=== PATIENT | female | born 1960 | race Caucasian/White ===

== ENCOUNTER 2021-07-15 08:10 | Inpatient (IN) ==
--- NOTE | 2021-05-16 13:46 | PAT Medication Instructions ---
Medication Instructions Date of Service May 16, 2021 Home Medications albuterol sulfate 90 mcg/actuation aerosol inhaler 2 puff INHALATION QID PRN amitriptyline 10 mg tablet 10 mg PO HS aspirin 81 mg tablet 81 mg PO QAM cholecalciferol (vitamin D3) 25 mcg (1,000 unit) capsule (Vitamin D3) 25 mcg PO QAM cyanocobalamin (vitamin B-12) 2,000 mcg tablet,extended release (Vitamin B-12 ER) 6,000 mcg PO QAM gabapentin 600 mg tablet 600 mg PO TID ipratropium 0.5 mg-albuterol 3 mg (2.5 mg base)/3 mL nebulization soln 3 ml INHALATION Q4H PRN lisinopril 20 mg tablet 20 mg PO QAM loratadine 10 mg tablet 10 mg PO QAM lorazepam 0.5 mg tablet 0.5 mg PO Q8H PRN meloxicam 15 mg tablet 15 mg PO QAM multivitamin with minerals (Hair,Skin and Nails) 2 tab PO QAM pantoprazole 40 mg tablet,delayed release (Protonix) 40 mg PO QAM perphenazine 2 mg tablet 2 mg PO HS sennosides 8.6 mg-docusate sodium 50 mg tablet (Stool Softener-Laxative) 1 tab- cap PO BID sertraline 100 mg tablet 100 mg PO HS ASK your surgeon for instructions meloxicam 15 mg tablet 15 mg PO QAM STOP taking 2 weeks before surgery multivitamin with minerals (Hair,Skin and Nails) 2 tab PO QAM DO NOT take the morning of surgery cholecalciferol (vitamin D3) 25 mcg (1,000 unit) capsule (Vitamin D3) 25 mcg PO QAM cyanocobalamin (vitamin B-12) 2,000 mcg tablet,extended release (Vitamin B-12 ER) 6,000 mcg PO QAM lisinopril 20 mg tablet 20 mg PO QAM loratadine 10 mg tablet 10 mg PO QAM sennosides 8.6 mg-docusate sodium 50 mg tablet (Stool Softener-Laxative) 1 tab- cap PO BID Take morning of surgery With a small sip of water, OTHERWISE NOTHING TO EAT OR DRINK AFTER MIDNIGHT: albuterol sulfate 90 mcg/actuation aerosol inhaler 2 puff INHALATION QID PRN (use if needed; please bring with you to hospital day of surgery if possible) aspirin 81 mg tablet 81 mg PO QAM (unless surgeon directs otherwise) gabapentin 600 mg tablet 600 mg PO TID ipratropium 0.5 mg-albuterol 3 mg (2.5 mg base)/3 mL nebulization soln 3 ml INHALATION Q4H PRN (if needed) lorazepam 0.5 mg tablet 0.5 mg PO Q8H PRN (if needed) pantoprazole 40 mg tablet,delayed release (Protonix) 40 mg PO QAM Take evening before surgery albuterol sulfate 90 mcg/actuation aerosol inhaler 2 puff INHALATION QID PRN (if needed) amitriptyline 10 mg tablet 10 mg PO HS gabapentin 600 mg tablet 600 mg PO TID ipratropium 0.5 mg-albuterol 3 mg (2.5 mg base)/3 mL nebulization soln 3 ml INHALATION Q4H PRN (if needed) lorazepam 0.5 mg tablet 0.5 mg PO Q8H PRN (if needed) perphenazine 2 mg tablet 2 mg PO HS sennosides 8.6 mg-docusate sodium 50 mg tablet (Stool Softener-Laxative) 1 tab- cap PO BID sertraline 100 mg tablet 100 mg PO HS Other Notes If you have any questions please call us at [phone] or [phone] or [phone] or [phone]
--- NOTE | 2021-05-21 12:29 | Anesthesiology Consultation ---
Date of Service May 21, 2021 Assessment & Plan (1) Encounter for pre-operative examination: Chart Review Chart Review: Acceptable Risk for Surgery (pending surgeon ordered PCP clearance, ECHO if available, and preop Covid testing results ) and Patient seen in Pre Admission Testing Awaiting surgeon ordered PCP clearance scheduled 05/26. Will fax for ECHO if available in past six years. Usually does better with breathing with preop nebulizer Pt drinks up to 6 beers daily Per PAT appt on 05/21/21, patient denies any recent travel or large group activities. No known Covid positive exposures or Covid related symptoms. No known Covid infection in the past 90 days. Pt is vaccinated for Covid. Preop Covid testing scheduled 06/02/21= will await results. Educated on importance of self quarantining, social distancing and wearing mask in public for the patient one week prior to surgery and after Covid testing done Teaching & Discussion Pre-Anesthesia Teaching/Discussion Notes: Instructed NPO after midnight before surgery,except medications with 15 cc of water. Medication instructions provided according to the [facility] guidelines. History Surgery Operation Date: 06/04/21 07:45 Proposed Procedures p L4-S1 Decompression Fusion, Spinal Cord Monitoring - Tomas West, Height/Weight Height: 5 ft 1.5 in Weight: 56.9 kg Allergies Allergy/AdvReac Type Severity Reaction Status Date / Time nitrofurantoin Allergy SOB Verified 05/15/21 09:52 sumatriptan [From Imitrex] Allergy neck pain Verified 05/15/21 09:52 Medications Home Medications Medication Instructions Recorded Confirmed Last Taken albuterol sulfate 90 mcg/actuation 2 puff INHALATION QID PRN 05/15/21 05/15/21 Unknown aerosol inhaler amitriptyline 10 mg tablet 10 mg PO HS 05/15/21 05/15/21 Unknown aspirin 81 mg tablet 81 mg PO QAM 05/15/21 05/15/21 Unknown cholecalciferol (vitamin D3) 25 25 mcg PO QAM 05/15/21 05/15/21 Unknown mcg (1,000 unit) capsule (Vitamin D3) cyanocobalamin (vitamin B-12) 6,000 mcg PO QAM 05/15/21 05/15/21 Unknown 2,000 mcg tablet,extended release (Vitamin B-12 ER) gabapentin 600 mg tablet 600 mg PO TID 05/15/21 05/15/21 Unknown ipratropium 0.5 mg-albuterol 3 mg 3 ml INHALATION Q4H PRN 05/15/21 05/15/21 Unknown (2.5 mg base)/3 mL nebulization soln lisinopril 20 mg tablet 20 mg PO QAM 05/15/21 05/15/21 Unknown loratadine 10 mg tablet 10 mg PO QAM 05/15/21 05/15/21 Unknown lorazepam 0.5 mg tablet 0.5 mg PO Q8H PRN 05/15/21 05/15/21 Unknown meloxicam 15 mg tablet 15 mg PO QAM 05/15/21 05/15/21 Unknown multivitamin with minerals 2 tab PO QAM 05/15/21 05/15/21 Unknown (Hair,Skin and Nails) pantoprazole 40 mg tablet,delayed 40 mg PO QAM 05/15/21 05/15/21 Unknown release (Protonix) perphenazine 2 mg tablet 2 mg PO HS 05/15/21 05/15/21 Unknown sennosides 8.6 mg-docusate sodium 1 tab-cap PO BID 05/15/21 05/15/21 Unknown 50 mg tablet (Stool Softener-Laxative) sertraline 100 mg tablet 100 mg PO HS 05/15/21 05/15/21 Unknown Past Medical History Medical History (Updated 05/22/21 @ 08:49 by Shweta Fowler PA-C) Alcohol ingestion, more than 4 drinks/day 6 beers/day Anxiety Asthma Uses PRN inh daily COPD (chronic obstructive pulmonary disease) Breathing stable DDD (degenerative disc disease) Depression Fibromyalgia Stable GERD (gastroesophageal reflux disease) Well controlled and stable Graves' disease in remission No meds- thyroid levels WNL per patient TSH WNL at PAT appt 05/21/21 HLD (hyperlipidemia) HTN (hypertension) Ischemic stroke Approx 5 years ago; no deficits Migraines Spinal stenosis Suspected sleep apnea Witnessed by - no hx of sleep study Urinary incontinence Exercise / Class Metabolic Activity III < 4 Walking/Shop/Light housework (one flight of stairs- no chest pain, mild SOB ) Past Family History Family History Other No family history of adverse response to anesthesia Past Surgical History Surgical History History of appendectomy History of arthroscopy of right knee History of cataract surgery History of cholecystectomy History of colonoscopy History of esophagogastroduodenoscopy (EGD) History of repair of hiatal hernia History of total abdominal hysterectomy and bilateral salpingo-oophorectomy S/P correction of deviated nasal septum Past Anesthesia History No Hx of Anesthesia Complications (minimal asthma aggrevation- relieved with breathing treatments preop ) and No Family Hx of Anesthesia Complications History of PONV No Hx of PONV and No Hx of Motion Sickness Social History Smoking Status: Current every day smoker tobacco type: cigarettes Smoking cigarettes per day: 10-15 cigarrettes Do You Dip or Chew Tobacco: No Hx Alcohol Use: Yes Alcohol type: beer alcohol intake frequency: 3 or more drinks per day Alcohol Intake Frequency Comment: 6 beers per day Hx Substance Use: No substance use type: does not use Review of Systems Chronic coughing and wheezing occasionally- secondary to smoking- stable Patient denies chest pain, shortness of breath at rest, palpitations. No hx of seizures, [place]. No hx of blood clots or blood transfusions Physical Exam Vital Signs VITALS BP 104/56 (manually) P 87 TEMP 98.1 SP02 96% RESP 16 Constitutional no acute distress ENMT Mouth: no TMJ clicking Thyromental Distance: < 3.5 Finger Breadths (2.5) Mallampati Class: III Full dentures on top and bottom Neck neck extension not limited Respiratory normal respiratory effort; no respiratory distress Auscultation: lungs clear to auscultation bilaterally, + diminished lung sounds and + wheezes (Minimal throughout ) Cardiovascular Rate/Rhythm: regular rate and regular rhythm Heart Sounds: no murmur Vessels: no carotid bruit Musculoskeletal Spine: no pain with cervical ROM Extremities: extremities normal to inspection Psychiatric Orientation: alert Lab Results Anesthesia Preop Results Results Anesthesia Widget: WBC 7.05 K/uL (4.8-10.8) 05/21/21 Hgb 11.8 g/dL (12.0-16.0) L 05/21/21 Hct 35.9 % (37-47) L 05/21/21 Plt 265 K/uL (130-400) 05/21/21 Na 138 mmol/L (136-145) 05/21/21 K 4.5 mmol/L (3.5-5.1) 05/21/21 Cl 107 mmol/L (98-107) 05/21/21 CO2 25 mmol/L (21-32) 05/21/21 BUN 11 mg/dl (6-23) 05/21/21 Creat 0.97 mg/dl (0.6-1.2) 05/21/21 Glucose Level 121 mg/dl (70-99(Fasting)) H 05/21/21 PT 10.3 Seconds (9.0-12.0) 05/21/21 PTT 28.8 Seconds (21.0-31.0) 05/21/21 INR 1.0 (0.9-1.1) 05/21/21 TSH 3.094 uIu/ml (0.300-4.500) 05/21/21 Urine Color Yellow 05/21/21 Urine Appearance Clear (Clear) 05/21/21 Urine pH 5.0 (4.5-7.5) 05/21/21 Urine Specific [place] 1.009 (1.000-1.030) 05/21/21 Urine Protein Negative (Negative) 05/21/21 Urine Glucose (UA) Negative (Negative) 05/21/21 Urine Ketones Negative (Negative) 05/21/21 Urine Blood 1+ (Negative) H 05/21/21 Urine Nitrite Negative (Negative) 05/21/21 Urine Bilirubin Negative (Negative) 05/21/21 Urine Urobilinogen Negative (Negative) 05/21/21 Urine Leukocyte Esterase Negative (Negative) 05/21/21 Urine WBC (Auto) 0 /hpf (0-5) 05/21/21 Urine RBC (Auto) 0-4 /hpf (0-4) 05/21/21 Urine Hyaline Casts (Auto) 1-5 /lpf (0-5) 05/21/21 Urine Epithelial Cells (Auto) 20-30 /lpf (0-5) H 05/21/21 Urine Bacteria (Auto) Negative (Negative) 05/21/21 Blood Type A Negative 05/21/21 Antibody Screen NEGATIVE 05/21/21 Testing Electrocardiogram Date: 02/13/21 Findings: + NSR @ (76bpm) Chest X-Ray Date: 02/13/21 Findings: + NAD
[~2021-07-15 08:10] MED LIST: ACETAMINOPHEN 500 MG TAB PO SCH; CeleBREX 200 MG CAP PO SCH; GABAPENTIN 600 MG DOSE PO SCH; LR 15ML/HR IV SCH; ceFAZolin 1000MG 1,000 MG/7.5 ML SYR IV SCH
[2021-07-15] MEDS ORDERED: ePHEDrine sulfate 50 MG/ML AMP IV PRN (09:40)
[2021-07-15] MEDS ORDERED: ATROPINE SULFATE 0.1 MG/ML 10ML SYR IV PRN (09:40)
[2021-07-15] MEDS ORDERED: HYDROmorphone INJ 1 MG/ML SYRINGE IV PRN ×2 (09:40→15:59)
[2021-07-15] MEDS ORDERED: ONDANSETRON INJ 2 MG/ML 2 ML VIAL IV PRN ×2 (09:40→15:59)
[2021-07-15] MEDS ORDERED: ALBUT/IPRATROP 3MG/0.5MG NEB 3 ML VIAL INH PRN ×2 (09:51→15:59)
--- NOTE | 2021-07-15 11:19 | History & Physical Bridge Note ---
Date of Service July 15, 2021 History & Physical Bridge Note I have examined the patient, reviewed the History & Physical and in the interval since the performance of the History & Physical I have noted the following changes of clinical significance: no changes noted
--- NOTE | 2021-07-15 11:20 | History & Physical Report ---
Date of Service July 15, 2021 Assessment & Plan (1) Neurogenic claudication due to lumbar spinal stenosis: Plan: L4-S1 decompression fusion History of Present Illness Chief Complaint: Back and bilateral leg pain Primary Care Provider: Erwin Cerda This is a 52-year-old female who presents with chronic persistent back and bilateral leg pain after failing course of nonoperative care she is here for surgical invention. Allergies Allergy/AdvReac Type Severity Reaction Status Date / Time nitrofurantoin Allergy Intermediate SOB Verified 07/15/21 09:56 sumatriptan [From Imitrex] Allergy Intermediate neck pain Verified 07/15/21 09:56 Home Medications Medication Instructions Recorded Confirmed Type albuterol sulfate 90 mcg/actuation 2 puff INHALATION QID PRN 05/15/21 07/15/21 History aerosol inhaler amitriptyline 10 mg tablet 10 mg PO HS 05/15/21 07/15/21 History aspirin 81 mg tablet 81 mg PO QAM 05/15/21 07/15/21 History cholecalciferol (vitamin D3) 25 25 mcg PO QAM 05/15/21 07/15/21 History mcg (1,000 unit) capsule (Vitamin D3) cyanocobalamin (vitamin B-12) 6,000 mcg PO QAM 05/15/21 07/15/21 History 2,000 mcg tablet,extended release (Vitamin B-12 ER) gabapentin 600 mg tablet 600 mg PO TID 05/15/21 07/15/21 History ipratropium 0.5 mg-albuterol 3 mg 3 ml INHALATION Q4H PRN 05/15/21 07/15/21 History (2.5 mg base)/3 mL nebulization soln lisinopril 20 mg tablet 20 mg PO QAM 05/15/21 07/15/21 History loratadine 10 mg tablet 10 mg PO QAM 05/15/21 07/15/21 History lorazepam 0.5 mg tablet 0.5 mg PO Q8H PRN 05/15/21 07/15/21 History meloxicam 15 mg tablet 15 mg PO QAM 05/15/21 07/15/21 History multivitamin with minerals 2 tab PO QAM 05/15/21 07/15/21 History (Hair,Skin and Nails) pantoprazole 40 mg tablet,delayed 40 mg PO QAM 05/15/21 07/15/21 History release (Protonix) perphenazine 2 mg tablet 2 mg PO HS 05/15/21 07/15/21 History sennosides 8.6 mg-docusate sodium 1 tab-cap PO BID 05/15/21 07/15/21 History 50 mg tablet (Stool Softener-Laxative) sertraline 100 mg tablet 100 mg PO HS 05/15/21 07/15/21 History Past Med/Surg History Medical History (Updated 07/15/21 @ 11:20 by Tomas West, DO) Alcohol ingestion, more than 4 drinks/day 6 beers/day Anxiety Asthma Uses PRN inh daily COPD (chronic obstructive pulmonary disease) Breathing stable DDD (degenerative disc disease) Depression Fibromyalgia Stable GERD (gastroesophageal reflux disease) Well controlled and stable Graves' disease in remission No meds- thyroid levels WNL per patient TSH WNL at PAT appt 05/21/21 HLD (hyperlipidemia) HTN (hypertension) Ischemic stroke Approx 5 years ago; no deficits Migraines Spinal stenosis Suspected sleep apnea Witnessed by - no hx of sleep study Urinary incontinence Surgical History (Updated 07/07/21 @ 11:40 by Val Rizvi RN) History of appendectomy History of arthroscopy of right knee History of cataract surgery left History of cholecystectomy History of colonoscopy History of esophagogastroduodenoscopy (EGD) History of repair of hiatal hernia History of total abdominal hysterectomy and bilateral salpingo-oophorectomy S/P correction of deviated nasal septum Family History Other No family history of adverse response to anesthesia Social History Smoking Status: Former smoker Cigarettes Per Day: quit; Smoking End Date: 07/07/2021; Second Hand Exposure: No; Do You Dip or Chew Tobacco: No; Tobacco Cessation Education Requested by Patient: No Hx Alcohol Use: Yes Alcohol type: beer Hx Substance Use: No Preferred Language: Slovak Communication Ability: Effective Sanitation Worker Required: No Beliefs That Will Affect Care: None Current Living Situation: Spouse Other Information That Helps Us Care for You: No Feels Safe at Home: Yes Safety Concerns: Feels Safe At This Time Assistive Devices: Cane, Denture - Upper, Denture - Lower and Glasses Assistive Devices Comment: glasses for reading Physical Exam Physical Exam: Patient is alert and oriented Heart regular in rhythm Lungs clear Results & Data ([facility]) Vital Signs (Past 12 Hours) Vital Signs Temp Pulse Resp BP Pulse Ox 07/15/21 08:58 37 C 82 18 128/67 100
[2021-07-15] MEDS ORDERED: fentaNYL citrate 100 MCG/2 ML VIAL ONE (11:33)
[2021-07-15] MEDS ORDERED: MIDAZOLAM HCL 1 MG/ML 2ML VIAL ONE (11:33)
[2021-07-15] MEDS ORDERED: ceFAZolin 330 MG/ML 1 GM VIAL ONE (11:41)
[2021-07-15] MEDS ORDERED: BUPIVACAINE/EPINEPHRINE 0.25% 1:200,000 30 ML VIAL ONE (11:41)
[2021-07-15] MEDS ORDERED: ALBUTEROL HFA INHALER 8.5 GM ONE (11:59)
[2021-07-15] MEDS ORDERED: HYDROmorphone INJ 2 MG/ML SYR/VIAL ONE (12:12)
[2021-07-15] MEDS ORDERED: FLOSEAL HEMOSTATIC MATRIX 10ML TOP ONE (12:16)
--- NOTE | 2021-07-15 14:06 | Operative Report ---
Post Operative Report Pre & Post Diagnosis Operation Date: 07/15/21 10:05 Pre-Op Diagnosis: Other Intervertebral Disc Degeneration, Lumbar Region Post-Op Diagnosis: Other Intervertebral Disc Degeneration, Lumbar Region Operation Date: 07/15/21 12:20 <No data on this case meets the specified criteria> I identified the patient and participated in the time-out.: Yes Procedure Operation Date: 07/15/21 10:05 Actual Procedures #1 lumbar decompression with bilateral medial facetectomies and foraminotomies L3-L4, L4-L5 and L5-S1. #2 posterior spinal fusion L4-L5 L5-S1. #3 placement posterior instrumentation L4-S1. #4 interbody fusion L4-L5 L5-S1. #5 placement of titanium 7 mm cage L4-L5 and 8 mm cage at L5-S1. #6 placement locally harvested morselized autograft in the posterior gutters. #7 placement of I factor combined with the talus in the interbody space and posterior gutters. Operation Date: 07/15/21 12:20 <No data on this case meets the specified criteria> Surgeon Tomas West, DO Bilingual Teacher Aide Nay Conte Estimated Blood Loss 100 Findings Consistent with Post-Op Diagnosis Specimens None Indications This is a 52-year-old male who presents above-mentioned diagnosis and course of nonoperative care she is here for surgical invention. Description of Procedure Patient was met with identified informed consent obtained. Patient was then taken to the operative suite underwent ablation placed in a prone position the [facility] Darnell and frame. All bony prominences well-padded eyes inspected to ensure no external pressure placed upon the. This point lumbar spine was prepped and draped in a sterile fashion. Sharp dissection with the assistance of Bovie cautery was performed down to and exposing the lamina and transverse processes of L4-L5 and sacral ala. From a caudal cephalad fashion complete laminectomy of L5 L4 and partial laminectomy of L3 performed including bilateral medial facetectomies and foraminotomies addressing severe spinal stenosis. Pedicle screws then placed in L for L5 and S1 levels bilaterally with assistance of fluoroscopy and process lonnie placed. By way of a transfemoral approach on the right complete discectomy of L5-S1 was performed endplates curetted to subco rtical bleeding bone and an 8 x 22 mm titanium cage filled I factor tapped in position. Then proceeded to L for L5 and again by way of a transforaminal portion of right complete discectomy performed endplates curetted to subcortical being bone and a 7 mm titanium cage filled I factor tapped in position. The rods were then locked in final position bilaterally. The transverse processes of L4-L5 and sacral ala burred to subcortical bleeding bone. I factor combined with V toss and locally harvested morselized autograft was placed in the posterior gutters. 15 round [place] drain inserted. The incision was then closed with 1 Vicryl the fascia 2-0 Vicryl subcutaneously and 4 Monocryl for final skin closure. Steri-Strip sterile dressings placed. Patient will continue PACU stable condition. Please note spinal cord monitoring was utilized at the procedure no changes noted. Lastly Nay Conte was present out the entire procedure and while the patient positioning complex portions of the surgery and final skin closure. I attest to the content of the Intraoperative Record and any orders documented therein. Any exceptions are noted below.
--- NOTE | 2021-07-15 14:14 | Fluoroscopy Report ---
FL lumbar spine 2-3V CLINICAL HISTORY: L4-S1 decompression and fusion COMPARISON STUDY: None. FLUOROSCOPY TIME: 30 seconds. FINDINGS: 2 fluoroscopic spot images of the lumbar spine demonstrate posterior decompression and fusi on from L4 through S1 with pedicle screws and rods. Disc spacers are in place. IMPRESSION: Fluoroscopic assistance provided for L4-S1 posterior decompression and fusion. ACT 112: Negative or not required by law. Electronically signed by: Thanh Mercedes M.D. 07/15/2021 2:13 PM
[2021-07-15] MEDS ORDERED: ONDANSETRON INJ 2 MG/ML 2 ML VIAL ONE (14:25)
[2021-07-15] MEDS ORDERED: DEXAMETHASONE SOD INJ 4 MG/ML VIAL ONE (14:25)
[2021-07-15] MEDS ORDERED: GLYCOPYRROLATE 0.2 MG/ML VIAL ONE (14:25)
[2021-07-15] MEDS ORDERED: PROPOFOL IV EMULSION 10 MG/ML 20 ML VIAL IV ONE (14:25)
[2021-07-15] MEDS ORDERED: NEOSTIGMINE METHYLSULFATE 1 MG/ML 10ML VIAL ONE (14:25)
[2021-07-15] MEDS ORDERED: ePHEDrine sulfate 50 MG/ML AMP ONE (14:26)
[2021-07-15] MEDS ORDERED: PHENYLEPHRINE HCL 10 MG/ML VIAL ONE (14:26)
[2021-07-15] MEDS ORDERED: ROCURONIUM BROMIDE 10 MG/ML 5 ML VIAL IV ONE (14:27)
[2021-07-15] MEDS: fentaNYL citrate 100 MCG/2 ML VIAL IV PRN ×2 (14:38→14:43)
[2021-07-15] MEDS ORDERED: HYDROmorphone INJ 0.5 MG/0.5 ML SYR IV PRN (15:59)
[2021-07-15] MEDS ORDERED: ALUMINUM/MAGNESIUM SUSP 30 ML UDC PO PRN (15:59)
[2021-07-15] MEDS ORDERED: ACETAMINOPHEN 500 MG TAB PO PRN (15:59)
[2021-07-15] MEDS ORDERED: ALBUTEROL HFA 8 GM INHALER INH PRN (15:59)
[2021-07-15] MEDS ORDERED: DO NOT ADMINISTER FLU VACCINE PRN (15:59)
[2021-07-15] MEDS ORDERED: MAGNESIUM HYDROXIDE SUSP 30 ML UDC PO PRN (15:59)
[2021-07-15] MEDS ORDERED: ONDANSETRON 4 MG OD TAB PO PRN (15:59)
[2021-07-15] MEDS ORDERED: NALOXONE HCL 0.4 MG/1 ML VIAL/CARP IV PRN (15:59)
[2021-07-15] MEDS ORDERED: SOD PHOSPHATE/SOD BIPHOSPHATE ENEMA 132 ML BTL PR PRN (15:59)
[2021-07-15] MEDS ORDERED: FAMOTIDINE 20 MG TAB PO PRN (15:59)
[2021-07-15] MEDS ORDERED: hydrOXYzine HCl 25 MG TAB PO PRN (15:59)
[2021-07-15] MEDS ORDERED: LORazepam 2 MG/1 ML VIAL IV PRN ×2 (15:59→16:57)
[2021-07-15] MEDS ORDERED: bisacodyL 10 MG SUPP PR PRN (15:59)
[2021-07-15] MEDS ORDERED: PROMETHAZINE HCL 12.5 MG in SODIUM CHLORIDE 0.9% 50 ML IV PRN (15:59)
[2021-07-15] MEDS ORDERED: ACETAMINOPHEN 1,000 MG/100 ML VIAL IV PRN (15:59)
[2021-07-15] MEDS ORDERED: diphenhydrAMINE Capsule 25 MG CAP PO PRN (15:59)
[2021-07-15] MEDS ORDERED: DO NOT ADMINISTER PNEUMOCOCCAL VACCINE PRN (15:59)
[2021-07-15] MEDS ORDERED: METOCLOPRAMIDE HCL INJ 5 MG/ML 2 ML VIAL IV PRN (15:59)
--- NOTE | 2021-07-15 16:27 | Hospitalist Consultation ---
Date of Consultation July 15, 2021 Assessment & Plan (1) Neurogenic claudication due to lumbar spinal stenosis: Pt is s/p lumbar decompression/fusion by Dr. West today - POD #0 - PT, pain control, DVT prophylaxis, activity per primary team - Encourage incentive spirometry - Labs in AM (2) Alcohol ingestion, more than 4 drinks/day: Pt with daily EtOH as outpatient although denies prior hx of withdrawal. - Ativan at-risk EtOH withdrawal protocol - Thiamine/Folic acid (3) COPD (chronic obstructive pulmonary disease): (4) Anxiety: (5) Depression: (6) HTN (hypertension): (7) GERD (gastroesophageal reflux disease): (8) Fibromyalgia: (9) HLD (hyperlipidemia): Continue other home medications as appropriate. Pt seen and reviewed with collaborating physician, Dr. Hernández. Plan of care discussed and as outlined above. Thank you for this consultation. We will continue to follow pt with you. [facility] via [employer]. Please don't hesitate to call with questions. Alejandro Pan PA-C Supervising Physician Co-Signing Physician Notes Pt is a 60 y/o F with hx of COPD, asthma, HLD, Migraine, Anxiety, Depression admitted for lower back surgery and underwent lumbar decompression and fusion. PE: NAD Lungs: CTA, no wheezing or crackles Cards: normal S1/S2, no murmur Abd: ND, NT, soft MSK: SCD in place Psych: AAOx3, normal affect A/P: Lumbar DDD & Chronic back pain: -s/p Lumbar decompression and fusion (POD # 0) -pt is doing well - VSS - pain management per ortho -PT/OT -c/w incentive harpal Daily ETOH use: -will pt on ETOH withdrawal protocol Other chronic conditions: continue home meds Agree with A/P from Sarah Pan PA-C History of Present Illness Reason for Consultation: Post-operative Medical Management Requesting Physician: Dr. Tomas West Attending Physician: Tomas West, DO History of Present Illness This is a 60 y/o female with a PMH of COPD, asthma, GERD, HTN, dyslipidemia, fibromyalgia, depression, anxiety, migraines, and prior CVA who underwent lumbar decompression/fusion by Dr. West today. We have been consulted for post- operative medical management. Pt follows with Dr. Erwin Cerda as her PCP and was seen for pre-operative evaluation. Pt denies tobacco but does drink 2-4 beers on average per day, but may drink up to 10. Denies prior history of withdrawal symptoms. Currently, she is complaining of back pain, reports she is hungry, and has the sensation of needing to urinate although she does still have a Simental catheter in place. She denies chest pain, palpitations, cough, SOB, N/V/D, PARRISH, dizziness. No issues with numbness in LE. She is having tremors in her hands but reports that this is an ongoing issue for which she is scheduled to see her PCP later this month. Allergies Allergy/AdvReac Type Severity Reaction Status Date / Time nitrofurantoin Allergy Intermediate SOB Verified 07/15/21 09:56 sumatriptan [From Imitrex] Allergy Intermediate neck pain Verified 07/15/21 09:56 Home Medications Medication Instructions Recorded Confirmed Type albuterol sulfate 90 mcg/actuation 2 puff INHALATION QID PRN 05/15/21 07/15/21 History aerosol inhaler amitriptyline 10 mg tablet 10 mg PO HS 05/15/21 07/15/21 History aspirin 81 mg tablet 81 mg PO QAM 05/15/21 07/15/21 History cholecalciferol (vitamin D3) 25 25 mcg PO QAM 05/15/21 07/15/21 History mcg (1,000 unit) capsule (Vitamin D3) cyanocobalamin (vitamin B-12) 6,000 mcg PO QAM 05/15/21 07/15/21 History 2,000 mcg tablet,extended release (Vitamin B-12 ER) gabapentin 600 mg tablet 600 mg PO TID 05/15/21 07/15/21 History ipratropium 0.5 mg-albuterol 3 mg 3 ml INHALATION Q4H PRN 05/15/21 07/15/21 History (2.5 mg base)/3 mL nebulization soln lisinopril 20 mg tablet 20 mg PO QAM 05/15/21 07/15/21 History loratadine 10 mg tablet 10 mg PO QAM 05/15/21 07/15/21 History lorazepam 0.5 mg tablet 0.5 mg PO Q8H PRN 05/15/21 07/15/21 History meloxicam 15 mg tablet 15 mg PO QAM 05/15/21 07/15/21 History multivitamin with minerals 2 tab PO QAM 05/15/21 07/15/21 History (Hair,Skin and Nails) pantoprazole 40 mg tablet,delayed 40 mg PO QAM 05/15/21 07/15/21 History release (Protonix) perphenazine 2 mg tablet 2 mg PO HS 05/15/21 07/15/21 History sennosides 8.6 mg-docusate sodium 1 tab-cap PO BID 05/15/21 07/15/21 History 50 mg tablet (Stool Softener-Laxative) sertraline 100 mg tablet 100 mg PO HS 05/15/21 07/15/21 History Patient History Medical History (Updated 07/15/21 @ 17:07 by Sarah Pan PA-C) Alcohol ingestion, more than 4 drinks/day 6 beers/day Anxiety Asthma Uses PRN inh daily COPD (chronic obstructive pulmonary disease) Breathing stable DDD (degenerative disc disease) Depression Fibromyalgia Stable GERD (gastroesophageal reflux disease) Well controlled and stable Graves' disease in remission No meds- thyroid levels WNL per patient TSH WNL at PAT appt 05/21/21 HLD (hyperlipidemia) HTN (hypertension) Ischemic stroke Approx 5 years ago; no deficits Migraines Spinal stenosis Suspected sleep apnea Witnessed by - no hx of sleep study Urinary incontinence Surgical History History of appendectomy History of arthroscopy of right knee History of cataract surgery left History of cholecystectomy History of colonoscopy History of esophagogastroduodenoscopy (EGD) History of repair of hiatal hernia History of total abdominal hysterectomy and bilateral salpingo-oophorectomy S/P correction of deviated nasal septum Family History Other No family history of adverse response to anesthesia Social History Smoking Status: Former smoker Cigarettes Per Day: quit; Smoking End Date: 07/07/2021; Second Hand Exposure: No; Do You Dip or Chew Tobacco: No; Tobacco Cessation Education Requested by Patient: No Hx Alcohol Use: Yes Alcohol type: beer Hx Substance Use: No Preferred Language: Danish Communication Ability: Effective Digital Program Manager Required: No Beliefs That Will Affect Care: None Current Living Situation: Spouse Other Information That Helps Us Care for You: No Feels Safe at Home: Yes Safety Concerns: Feels Safe At This Time Assistive Devices: Cane, Denture - Upper, Denture - Lower and Glasses Assistive Devices Comment: glasses for reading Review of Systems Review of Systems: All systems reviewed & are unremarkable except as noted in HPI & below Constitutional: no fever and no chills Ear, Nose, Mouth, Throat: no nasal congestion, no nasal discharge and no sore throat Respiratory: as per Subjective / HPI Cardiovascular: no chest pain, no palpitations and no edema Gastrointestinal: no abdominal pain, no nausea, no vomiting and no diarrhea/loose stools Genitourinary: Simental in place Musculoskeletal: + back pain and + myalgia Integumentary: no yellowing of the skin Neurologic: + tremor(s); no headache(s) Psychiatric: + anxiety Physical Exam Constitutional: no acute distress Eyes: + anicteric sclerae Neck: trachea midline Respiratory: no respiratory distress and no labored breathing Auscultation: lungs clear to auscultation bilaterally; no rales and no rhonchi Cardiovascular: Rate/Rhythm: regular rate and regular rhythm Vessels: dorsalis pedis pulses present and radial pulses present Extremities: no pedal edema Gastrointestinal (Abdomen): Inspection/Auscultation: normal bowel sounds; abdomen not distended Percussion/Palpation: abdomen soft; abdomen nontender Musculoskeletal: Head/Neck/Chest: normocephalic, head atraumatic and neck supple Skin: no jaundice Neurologic: moves all extremities tremor noted in bilateral UE Sensation to light touch intact bilateral LE Results & Data Results & Data ([facility]) Vital Signs (Past 12 Hours) Vital Signs Temp Pulse Pulse Resp BP Pulse Ox 07/15/21 16:20 36.4 C L 87 17 112/67 95 07/15/21 15:35 83 16 104/51 L 98 07/15/21 15:20 78 18 100/51 L 100 07/15/21 15:10 86 22 94/48 L 98 07/15/21 15:00 36.8 C 85 20 94/48 L 92 07/15/21 14:50 85 19 106/48 L 94 07/15/21 14:40 102 H 16 113/54 L 100 07/15/21 14:30 99 H 14 113/78 100 07/15/21 14:26 107 H 12 122/82 100 07/15/21 14:17 36.7 C 104 H 18 108/71 100 07/15/21 08:58 37 C 82 18 128/67 100 Laboratory Results 07/15/21 07/15/21 08:45 09:01 SARS-CoV-2, RNA, NAAT NEGATIVE Blood Type A Negative Antibody Screen NEGATIVE Medications Administered Acetaminophen (Acetaminophen 500 Mg Tab) 1,000 mg PO PREOP OLGA Stop: 07/15/21 18:00 Last Admin: 07/15/21 10:47 Dose: 1,000 mg Documented by: [id number] Celecoxib (Celebrex 200 Mg Cap) 200 mg PO PREOP OLGA Stop: 07/15/21 18:00 Last Admin: 07/15/21 10:48 Dose: 200 mg Documented by: [id number] Gabapentin (Gabapentin 600 Mg Dose) 600 mg PO PREOP OLGA Stop: 07/15/21 18:00 Last Admin: 07/15/21 10:47 Dose: 600 mg Documented by: [id number] Lactated Ringer's (Lr) 1,000 mls @ 15 mls/hr IV .Q24H OLGA Stop: 07/16/21 05:59 Last Infusion: 07/15/21 11:43 Dose: 0 mls/hr Documented by: [id number] Admin: 07/15/21 10:48 Dose: 15 mls/hr Documented by: [id number] Cefazolin Sodium (Ancef 1000mg) 1,000 mg in 7.5 mls @ 2.5 mls/min IV PREOP OLGA; Protocol Stop: 07/15/21 18:00 Last Admin: 07/15/21 11:43 Dose: 2.5 mls/min Documented by: [id number] Discontinued Medications Bupivacaine HCl/Epinephrine Bitart (Bupivacaine/Epinephrine 0.25% 1:200,000 30 Ml Vial) Confirm Administered Dose 30 ml .ROUTE .STK-MED ONE Stop: 07/15/21 11:42 Last Admin: 07/15/21 12:17 Dose: 20 ml Documented by: [id number] Cefazolin Sodium (Cefazolin 330 Mg/Ml 1 Gm Vial) Confirm Administered Dose 990 mg .ROUTE .STK-MED ONE Stop: 07/15/21 11:42 Last Admin: 07/15/21 12:17 Dose: 1,000 mg Documented by: [id number] Fentanyl Citrate (Fentanyl Citrate 100 Mcg/2 Ml Vial) 25 mcg IV Q5M PRN PRN Reason: PACU Use Only-Pain Stop: 07/15/21 17:40 Last Admin: 07/15/21 14:43 Dose: 25 mcg Documented by: [id number] Admin: 07/15/21 14:38 Dose: 25 mcg Documented by: [id number] Miscellaneous ( Floseal Hemostatic Matrix 10ml) 10 ml TOP ONCE ONE Stop: 07/15/21 12:17 Last Admin: 07/15/21 13:56 Dose: 14 ml Documented by: [id number]
[2021-07-15] MEDS: LACTATED RINGER'S 1,000 ML IV SCH (16:40)
[2021-07-15] MEDS: oxyCODONE HCL IR 5 MG TAB (IMMEDIATE RELEASE) PO PRN (16:40)
--- NOTE | 2021-07-15 16:40 | Anesthesiology Progress Note ---
Date of Service July 15, 2021 Anesthesia Post Procedure Vital Signs Vital Signs: Temp Pulse Pulse Resp BP Pulse Ox 07/15/21 16:20 36.4 C L 87 17 112/67 95 07/15/21 15:50 36.8 C 106 H 16 107/61 98 07/15/21 15:35 83 16 104/51 L 98 07/15/21 15:20 78 18 100/51 L 100 07/15/21 15:10 86 22 94/48 L 98 07/15/21 15:00 36.8 C 85 20 94/48 L 92 07/15/21 14:50 85 19 106/48 L 94 07/15/21 14:40 102 H 16 113/54 L 100 07/15/21 14:30 99 H 14 113/78 100 07/15/21 14:26 107 H 12 122/82 100 07/15/21 14:17 36.7 C 104 H 18 108/71 100 07/15/21 08:58 37 C 82 18 128/67 100 Pain Intensity Bilateral Medial Back: Pain Intensity: 5 Transfer of Care Handoff Completed per policy Notes Mental Status: alert / awake / arousable Patient Amnestic to Procedure: Yes Nausea / Vomiting: adequately controlled Pain: adequately controlled Airway Patency, RR, SpO2: stable & adequate BP & HR: stable & adequate Hydration State: stable & adequate Anesthetic Complications: no major complications apparent
[2021-07-15] MEDS: THIAMINE HCL 100 MG TAB PO SCH (17:14)
[2021-07-15] MEDS: LORazepam 0.5 MG TAB PO PRN (18:53)
[2021-07-15] MEDS: FOLIC ACID 1 MG TAB PO SCH (18:57)
[2021-07-15] MEDS: traMADol HCL 50 MG TABLET PO PRN (19:57)
[2021-07-15] MEDS ORDERED: DOCUSATE SODIUM/SENNA 50/8.6MG TAB PO SCH (21:00)
[2021-07-15] MEDS: ceFAZolin 1000MG 1,000 MG/7.5 ML SYR IV SCH (21:54)
[2021-07-15] MEDS: AMITRIPTYLINE HCL 10 MG TAB PO SCH (21:57)
[2021-07-15] MEDS: DOCUSATE SODIUM/SENNA 50/8.6MG TAB PO SCH (21:58)
[2021-07-15] MEDS: GABAPENTIN 600 MG TAB PO SCH (21:58)
[2021-07-15] MEDS: SERTRALINE HCL 100 MG TABLET PO SCH (21:58)
[2021-07-15] MEDS: PERPHENAZINE 2 MG TABLET PO SCH (21:58)
[2021-07-16] MEDS: oxyCODONE HCL IR 5 MG TAB (IMMEDIATE RELEASE) PO PRN ×4 (02:05→20:39)
[2021-07-16] MEDS: LACTATED RINGER'S 1,000 ML IV SCH (02:05)
[2021-07-16] MEDS: ceFAZolin 1000MG 1,000 MG/7.5 ML SYR IV SCH (04:56)
[2021-07-16] MEDS: POLYETHYLENE (MIRALAX) 17 GM PACK PO SCH ×4 (05:00→23:20)
[2021-07-16 05:54] LABS: Basophils # (auto) 0.01 K/uL (0-0.2); Basophils % (auto) 0.1 %; Eosinophils # (auto) 0.01 K/uL (0-0.5); Eosinophils % (auto) 0.1 %; Hematocrit (blood only) 26.6 % (37-47); Hemoglobin 9.1 g/dL (12.0-16.0); Immature Granulocytes # (auto) 0.01 K/uL (0.00-0.02); Immature Granulocytes % (auto) 0.1 %; Lymphocytes # (auto) 1.51 K/uL (1.2-3.4); Lymphocytes % (auto) 20.4 %; Mean Corpuscular Hemoglobin 31.6 pg (25-34); Mean Corpuscular Hgb Conc 34.2 g/dL (32-36); Mean Corpuscular Volume 92.4 fL (80-100); Mean Platelet Volume 8.7 fL (7.4-10.4); Monocytes # (auto) 0.48 K/uL (0.11-0.59); Monocytes % (auto) 6.5 %; Neutrophils # (auto) 5.38 K/uL (1.4-6.5); Neutrophils % (auto) 72.8 %; Platelet Count 195 K/uL (130-400); Red Blood Count 2.88 M/uL (4.2-5.4)
[2021-07-16 06:18] LABS: BUN Creatinine Ratio 13.8 (10-20); Calcium 8.5 mg/dl (8.5-10.1); Creatinine Clr Calc Pharmacy 54.5 ml/min; Est GFR (African American) 85.1 ml/min; Est GFR (Non-African American) 73.4 ml/min; Potassium 3.8 mmol/L (3.5-5.1)
[2021-07-16] MEDS: PANTOprazole 40 MG TAB PO SCH (07:49)
[2021-07-16] MEDS: ASPIRIN 81 MG ECTAB PO SCH (07:49)
[2021-07-16] MEDS: THIAMINE HCL 100 MG TAB PO SCH (07:50)
[2021-07-16] MEDS: CHOLECALCIFEROL 1,000 UNITS 25 MCG TAB PO SCH (07:50)
[2021-07-16] MEDS: LORATADINE 10 MG TAB PO SCH (07:50)
[2021-07-16] MEDS: GABAPENTIN 600 MG TAB PO SCH ×3 (07:50→20:39)
[2021-07-16] MEDS: CEROVITE ADV FORMULA TAB PO SCH (07:51)
[2021-07-16] MEDS: FOLIC ACID 1 MG TAB PO SCH (07:51)
[2021-07-16] MEDS: dexAMETHasone 6 MG in SYRINGE 0 ML IV SCH (07:51)
--- NOTE | 2021-07-16 08:16 | Orthopedic Progress Note ---
Date of Service July 16, 2021 Assessment & Plan (1) Neurogenic claudication due to lumbar spinal stenosis: Plan: Patient is doing well postoperative day 1. We will start physical therapy today. DVT prophylaxis is in the form of teds and SCDs. Continue with pain c ontrol. Continue with aggressive bowel regimen. Anticipate discharge home within the next 24 to 48 hours. Admission and Anticipated Discharge Date Admission Date: July 15, 2021 Subjective Arrange is postoperative day 1 L4-S1 decompression and fusion. She has complaints of lower back pain only. States her lower extremities feel better. [place] drain output last shift was 110 cc. H&H are 9.1 and 26.6 respectively. Otherwise had an uneventful evening. Review of Systems Review of Systems: All systems reviewed & are unremarkable except as noted in HPI & below Physical Exam Physical Exam: She sitting up in chair reading a magazine. Alert and oriented x3 No acute distress Calves are soft and nontender bilateral lower extremities Strength is intact bilateral lower extremities Lumbar dressing is clean dry and intact with functioning [place] drain Results & Data ([facility]) Vital Signs (Past 12 Hours) Vital Signs Temp Pulse Resp BP Pulse Ox 07/16/21 06:00 36.7 C 81 18 97/62 L 97 07/16/21 02:00 36.8 C 82 16 137/75 97 07/15/21 22:00 36.4 C L 72 18 119/70 97
[2021-07-16] MEDS ORDERED: lisinopril 20 MG TAB PO SCH (09:00)
--- NOTE | 2021-07-16 09:46 | Hospitalist Progress Note ---
Date of Service July 16, 2021 Assessment & Plan (1) Neurogenic claudication due to lumbar spinal stenosis: Plan: Pt is s/p lumbar decompression/fusion by Dr. West today - POD #1 PT, pain control, DVT prophylaxis, activity per primary team Encourage incentive spirometry Acute blood loss anemia expected in setting of surgical blood loss and hemodilution hgb 9.1 today, pre op 11.8 monitor h/h and nita output (2) Alcohol ingestion, more than 4 drinks/day: Plan: Pt with daily EtOH as outpatient although denies prior hx of withdrawal. Ativan at-risk EtOH withdrawal protocol Thiamine/Folic acid (3) COPD (chronic obstructive pulmonary disease): Plan: no acute exac as needed inhalers (4) Anxiety: (5) Depression: Plan: controlled continue home meds (6) HTN (hypertension): Plan: BP on low side this morning lisinopril d/c 2/2 to low blood pressure will need to resume once stable (7) GERD (gastroesophageal reflux disease): Plan: continue PPI (8) Fibromyalgia: Plan: stable continue home meds Plan: DVT ppx: SCD/TEDS per primary Dispo: per primary, likely to remain hospitalized 1-2 more days FULL CODE PCP: Erwin Cerda, [facility] Pt was seen and examined in collaboration with Dr. Pickard, please see addendum Admission and Anticipated Discharge Date Admission Date: July 15, 2021 Supervising Physician Co-Signing Physician Notes Attending Addendum: care coordinated with ALLISON Gutierrez please refer to her notes for full details, I agree with her notes patient seen and examined, records reviewed by myself as well on exam, patient seen sitting up in bed states she has some pain on the surgical site otherwise ambulating well today no chest pain, dyspnea, palpitations, dizziness no other symptoms VS noted and reviewed oriented x 3 , not in distress, speaks in sentences with no effort nor accessory muscle use normal rate, regular rhythm, no murmurs clear breath sounds bilaterally non distended, soft, nontender no bipedal edema, erythema, warmth no neuro deficits all labs noted and reviewed ASSESSMENT AND PLAN> S/P BACK SURGERY monitor Hg HYPERTENSION BP on the lower side this morning hold Lisinopril encouraged to drink more fluids other diagnoses and plan of care as per ALLISON Gutierrez's notes Juliocesar Pickard MD Subjective Pt was seen and examined in room 307. Follow up lumbar surgery. She is up to chair this morning and feels well. She has incisional discomfort but no radicular sx. She is anxious to get catheter out. Denies f/c/s, chest pain, sob, n/v/d. She is tolerating breakfast. No flatus yet. Review of Systems Review of Systems: All systems reviewed & are unremarkable except as noted in HPI & below Physical Exam Physical Exam: Gen: WD/WN, NAD, A&O x3 HEENT: Normocephalic, atraumatic, conjunctivae moist, sclerae anicteric, mucous membranes moist. Lung: Clear to Auscultation bilaterally, no wheezes/rales/rhonchi Heart: Regular rate, regular rhythm, no murmurs, rubs, or gallops Abdomen: Soft, NT, ND +BS x 4 Extremities: No edema, lumbar dressing CDI NITA drain with serosang Skin: Warm, no rash, negative turgor. : gallegos cath Results & Data Results & Data ([facility]) Vital Signs (Past 12 Hours) Vital Signs Temp Pulse Resp BP Pulse Ox 07/16/21 06:00 36.7 C 81 18 97/62 L 97 07/16/21 02:00 36.8 C 82 16 137/75 97 07/15/21 22:00 36.4 C L 72 18 119/70 97 Medications Administered Current Inpatient Medications Acetaminophen (Acetaminophen 500 Mg Tab) 1,000 mg PO Q8H PRN PRN Reason: MILD Pain Scale 1,2,3 & Pre PT Stop: 08/14/21 15:58 Al Hydrox/Mg Hydrox/Simethicone (Aluminum/Magnesium Susp 30 Ml Udc) 30 ml PO Q6H PRN PRN Reason: Dyspepsia Stop: 08/14/21 15:58 Albuterol (Albuterol Hfa 8 Gm Inhaler) 2 puffs INH Q6R PRN PRN Reason: sob Stop: 08/14/21 15:58 Albuterol (Albut/Ipratrop 3mg/0.5mg Neb 3 Ml Vial) 3 ml INH Q4R PRN; Protocol PRN Reason: sob Stop: 08/14/21 15:58 Amitriptyline HCl (Amitriptyline Hcl 10 Mg Tab) 10 mg PO HS [facility] Stop: 08/14/21 20:59 Last Admin: 07/15/21 21:57 Dose: 10 mg Documented by: Aspirin (Aspirin 81 Mg Ectab) 81 mg PO QAM [facility] Stop: 08/15/21 08:59 Last Admin: 07/16/21 07:49 Dose: 81 mg Documented by: Bisacodyl (Bisacodyl 10 Mg Supp) 10 mg IN DAILY PRN PRN Reason: Constipation Stop: 08/14/21 15:58 Diphenhydramine HCl (Diphenhydramine Capsule 25 Mg Cap) 25 mg PO Q6H PRN PRN Reason: Allergic Rhinitis/Insomnia Stop: 08/14/21 15:58 Famotidine (Famotidine 20 Mg Tab) 20 mg PO Q12H PRN PRN Reason: Dyspepsia Stop: 08/14/21 15:58 Folic Acid (Folic Acid 1 Mg Tab) [facility] Stop: 08/14/21 17:59 Last Admin: 07/16/21 07:51 Dose: 1 mg Documented by: Gabapentin (Gabapentin 600 Mg Tab) 600 mg PO TID [facility] Stop: 08/14/21 20:59 Last Admin: 07/16/21 07:50 Dose: 600 mg Documented by: Hydromorphone HCl (Hydromorphone Inj 0.5 Mg/0.5 Ml Syr) 0.5 mg IV Q3H PRN PRN Reason: MODERATE Pain (Scale 4,5,6) & Pre PT Stop: 07/29/21 15:58 Hydromorphone HCl (Hydromorphone Inj 1 Mg/Ml Syringe) 1 mg IV Q3H PRN PRN Reason: SEVERE Pain (Scale 7,8,9,10) Stop: 07/29/21 15:58 Hydroxyzine HCl (Hydroxyzine Hcl 25 Mg Tab) 25 mg PO Q8H PRN PRN Reason: Anxiety Stop: 08/14/21 15:58 Promethazine HCl 12.5 mg/ (Sodium Chloride) 50.5 mls @ 202 mls/hr IV Q6H PRN PRN Reason: Nausea &/or Vomiting Stop: 08/14/21 15:58 Acetaminophen (Ofirmev) 1,000 mg in 100 mls @ 400 mls/hr IV Q8H PRN PRN Reason: Pain Rating 1-3 & Pre PT Stop: 07/18/21 15:58 Dexamethasone 6 mg/ Syringe 1.5 mls @ 1 mls/min IV DAILY [facility] Stop: 07/18/21 09:02 Last Admin: 07/16/21 07:51 Dose: 1 mls/min Documented by: Influenza Virus Vaccine Quadrival (Do Not Administer Flu Vaccine) 1 ea N/A PRN PRN PRN Reason: Notification Stop: 08/14/21 15:58 Loratadine (Loratadine 10 Mg Tab) 10 mg PO QAM [facility] Stop: 08/15/21 08:59 Last Admin: 07/16/21 07:50 Dose: 10 mg Documented by: Lorazepam (Lorazepam 0.5 Mg Tab) 0.5 mg PO Q8H PRN PRN Reason: Sedation/Anxiety Stop: 08/14/21 15:58 Last Admin: 07/15/21 18:53 Dose: 0.5 mg Documented by: Lorazepam (Lorazepam 2 Mg/1 Ml Vial) 0.5 mg IV Q8H PRN PRN Reason: Sedation/Anxiety Stop: 08/14/21 15:58 Lorazepam (Lorazepam 2 Mg/1 Ml Vial) 1 mg IV ONE PRN; Protocol PRN Reason: EtoH Withdrawal AWSS 6-10 Stop: 08/14/21 16:56 Magnesium Hydroxide (Magnesium Hydroxide Susp 30 Ml Udc) 30 ml PO Q24H PRN PRN Reason: Constipation Stop: 08/14/21 15:58 Metoclopramide HCl (Metoclopramide Hcl Inj 5 Mg/Ml 2 Ml Vial) 10 mg IV Q6H PRN PRN Reason: Nausea &/or Vomiting Stop: 08/14/21 15:58 Miscellaneous (Cyanocobalamin Er: Order Awaiting Action) 1 ea N/A QS [facility] Stop: 08/15/21 16:29 Multivitamins/Minerals (Cerovite Adv Formula Tab) 1 tab PO QAM [facility] Stop: 08/15/21 08:59 Last Admin: 07/16/21 07:51 Dose: 1 tab Documented by: Naloxone HCl (Naloxone Hcl 0.4 Mg/1 Ml Vial/Carp) 0.1 mg IV Q5M PRN PRN Reason: Oversedation/Resp depression Stop: 08/14/21 15:58 Ondansetron HCl (Ondansetron Inj 2 Mg/Ml 2 Ml Vial) 4 mg IV Q6H PRN PRN Reason: Nausea &/or Vomiting Stop: 08/14/21 15:58 Ondansetron HCl (Ondansetron 4 Mg Od Tab) 4 mg PO Q6H PRN PRN Reason: Nausea Stop: 08/14/21 15:58 Oxycodone HCl (Oxycodone Hcl Ir 5 Mg Tab (Immediate Release)) 5 - 10 mg PO Q4H PRN PRN Reason: Pain & Pre PT Stop: 07/29/21 15:58 Last Admin: 07/16/21 07:48 Dose: 10 mg Documented by: Pantoprazole Sodium (Pantoprazole 40 Mg Tab) [facility] Stop: 08/15/21 08:59 Last Admin: 07/16/21 07:49 Dose: 40 mg Documented by: Perphenazine (Perphenazine 2 Mg Tablet) 2 mg PO [facility] Stop: 08/14/21 20:59 Last Admin: 07/15/21 21:58 Dose: 2 mg Documented by: Pneumococcal Polyvalent Vaccine (Do Not Administer Pneumococcal Vaccine) 1 ea N/A PRN PRN PRN Reason: Notification Stop: 08/14/21 15:58 Polyethylene Glycol (Polyethylene (Miralax) 17 Gm Pack) 17 gm PO Q6 [facility] Stop: 08/15/21 05:59 Last Admin: 07/16/21 05:00 Dose: 17 gm Documented by: Senna/Docusate Sodium (Docusate Sodium/Senna 50/8.6mg Tab) 2 tab PO [facility] Stop: 08/14/21 20:59 Last Admin: 07/15/21 21:58 Dose: 2 tab Documented by: Sertraline HCl (Sertraline Hcl 100 Mg Tablet) 100 mg PO [facility] Stop: 08/14/21 20:59 Last Admin: 07/15/21 21:58 Dose: 100 mg Documented by: Sodium Biphosphate/Sodium Phosphate (Sod Phosphate/Sod Biphosphate Enema 132 Ml Btl) 132 ml IN ONE PRN PRN Reason: Constipation Stop: 08/14/21 15:58 Thiamine HCl (Thiamine Hcl 100 Mg Tab) 100 mg [facility] Stop: 08/14/21 08:59 Last Admin: 03/16/22 07:50 Dose: 100 mg Documented by: Tramadol HCl (Tramadol Hcl 50 Mg Tablet) 50 - 100 mg PO Q4H PRN PRN Reason: Moderate-Severe pain & Pre PT Stop: 08/14/21 15:58 Last Admin: 07/15/21 19:57 Dose: 100 mg Documented by: Vitamin D (Cholecalciferol 1,000 Units 25 Mcg Tab) 1,000 units PO [facility] Stop: 08/15/21 08:59 Last Admin: 07/16/21 07:50 Dose: 1,000 units Documented by:
[2021-07-16] MEDS: traMADol HCL 50 MG TABLET PO PRN (11:20)
[2021-07-16] MEDS: AMITRIPTYLINE HCL 10 MG TAB PO SCH (20:39)
[2021-07-16] MEDS: PERPHENAZINE 2 MG TABLET PO SCH (20:39)
[2021-07-16] MEDS: SERTRALINE HCL 100 MG TABLET PO SCH (20:40)
[2021-07-16] MEDS: DOCUSATE SODIUM/SENNA 50/8.6MG TAB PO SCH (20:48)
[2021-07-16] MEDS: LORazepam 0.5 MG TAB PO PRN (23:20)
[2021-07-17] MEDS: POLYETHYLENE (MIRALAX) 17 GM PACK PO SCH ×2 (05:55→11:14)
[2021-07-17] MEDS: oxyCODONE HCL IR 5 MG TAB (IMMEDIATE RELEASE) PO PRN ×2 (05:55→11:14)
[2021-07-17] MEDS ORDERED: SODIUM CHLORIDE 0.65% NA SOLN 45 ML (OCEAN) ONE (05:58)
[2021-07-17 06:27] LABS: Hematocrit (blood only) 28.9 % (37-47); Hemoglobin 9.3 g/dL (12.0-16.0); Mean Corpuscular Hemoglobin 30.8 pg (25-34); Mean Corpuscular Hgb Conc 32.2 g/dL (32-36); Mean Corpuscular Volume 95.7 fL (80-100); Mean Platelet Volume 9.3 fL (7.4-10.4); Platelet Count 199 K/uL (130-400); RDW Coefficient of Variation 13.2 % (11.5-14.5); RDW Standard Deviation 45.9 fL (36.4-46.3); Red Blood Count 3.02 M/uL (4.2-5.4); White Blood Count 6.96 K/uL (4.8-10.8)
[2021-07-17 06:51] LABS: BUN Creatinine Ratio 11.4 (10-20); Calcium 8.9 mg/dl (8.5-10.1); Creatinine Clr Calc Pharmacy 53.8 ml/min; Est GFR (African American) 83.9 ml/min; Est GFR (Non-African American) 72.4 ml/min
[2021-07-17 07:26] VITALS: PULSE 91; TEMP 97.9; O2SAT 100
[2021-07-17] MEDS: dexAMETHasone 6 MG in SYRINGE 0 ML IV SCH (07:34)
[2021-07-17] MEDS: CEROVITE ADV FORMULA TAB PO SCH (07:35)
[2021-07-17] MEDS: LORATADINE 10 MG TAB PO SCH (07:35)
[2021-07-17] MEDS: THIAMINE HCL 100 MG TAB PO SCH (07:35)
[2021-07-17] MEDS: CHOLECALCIFEROL 1,000 UNITS 25 MCG TAB PO SCH (07:35)
[2021-07-17] MEDS: PANTOprazole 40 MG TAB PO SCH (07:35)
[2021-07-17] MEDS: FOLIC ACID 1 MG TAB PO SCH (07:36)
[2021-07-17] MEDS: ASPIRIN 81 MG ECTAB PO SCH (07:36)
[2021-07-17] MEDS: GABAPENTIN 600 MG TAB PO SCH (07:36)
[2021-07-17 11:10] VITALS: BP 119/69
--- NOTE | 2021-07-17 12:58 | Discharge Summary ---
Date of Service July 17, 2021 Admission HPI Per Admitting Provider This is a 52-year-old female who presents with chronic persistent back and bilateral leg pain after failing course of nonoperative care she is here for surgical invention. Principal Diagnosis Lumbar spinal stenosis with neurogenic claudication Discharge Data Allergies Allergy/AdvReac Type Severity Reaction Status Date / Time nitrofurantoin Allergy Intermediate SOB Verified 07/15/21 09:56 sumatriptan [From Imitrex] Allergy Intermediate neck pain Verified 07/15/21 09:56 Consultations 07/15/21 15:59 Consult Hospitalist Routine Procedures Performed Operation Date: 07/15/21 10:05 Actual Procedures p L4-S1 Decompression and Fusion, Spinal Cord Monitoring(Not Applicable) - Tomas West DO Operation Date: 07/15/21 12:20 <No data on this case meets the specified criteria> Ordered Studies 07/15/21 10:05 [place] lumbar spine 2-3V Routine Hospital Course (1) Neurogenic claudication due to lumbar spinal stenosis: Patient went lumbar decompression fusion trial as well as taken orthopedic for postoperative. Postop day 1 she was up and ambulating progressed to postop day #2. Pain well controlled. Excellent strength testing. [place] drain decreasing probably. Subsequent discharge home. Discharge orders instructions from chart for further view. Total Time Total Time Spent Total Time Spent (In Minutes): 20 minutes Discharge Plan Discharge Items Patient Disposition: Home - Self-Care Reason For Visit: POSTOP Discharge Diagnosis: Lumbar spinal stenosis with radiculopathy Activity: As commented below Non-emergency contact: Primary Care Provider Call non-emergency contact if: you have any medication questions Follow-up/Referrals: Tomas West DO [Surgeon] - 07/31/21 10:15 am (Appt with Nay Vasquez PA-C; [place] office) Erwin Cerda D.O. [Primary Care Provider] - Diet: Regular Addtl Attending Provider Instructions: ACTIVITY RECOMMENDATIONS: SELF CARE INSTRUCTIONS AFTER THORACIC/LUMBAR FUSIONS 1. You may walk to your tolerance. It is good exercise for your legs and back. Expect some back and intermittent leg aches and pains. 2. You may perform "counter-top" level activities (make a sandwich, margaret with a project, etc.). 3. No bending or lifting of more than 10 pounds or back twisting of any nature (roll like a log when turning in bed). 4. You may ride in a car for 20-30 minutes at a time. No driving until after your first visit with your doctor. 5. Frequent changes of position and restricting sitting to 30 minutes at a time will help limit the amount of back spasms and stiffness you may experience. 6. You may discontinue the use of ambulatory aids (cane, crutches, etc.) once your strength and confidence allow. 7. You may death clearance coordinator the shower and let water strike your incision when you arrive home at least once daily. Do not take a tub bath, sit in a hot tub or go into a swimming pool until after your first recheck in the office. SPECIAL CARE INSTRUCTIONS: VERY IMPORTANT TO READ AND REVIEW A. Your surgical incision has been closed with a cosmetic suture under the skin that will dissolve in about 6 weeks. In 14 days, you can use a pair of clean scissors and cut the suture that is left outside of the skin at the ends of your incision. 1. The small skin tapes can be removed 7 days after surgery if they have not fallen off by that point. 2. You may keep the wound open to air as much as possible to promote healing after post-op day number 5 unless told otherwise by your doctor. 3. If you think the wound looks like it is becoming infected (redness or worsening drainage) and/or you are experiencing fever, chill or worsening back pain and muscle spasms, contact the office so that we may evaluate you as soon as possible. B. Complications are uncommon, but please contact us if you have any signs or symptoms of: 1. wound infection (fever higher than 102.5 degrees F, redness, separation of wound, drainage, or increasing pain from the incision) 2. blood clots in legs (pain, swelling, redness and warmth in legs) 3. urinary tract infection (fever higher than 102.5 degrees F, burning upon urination or increased frequency of urination) 4. nerve problems (inability to walk on your toes or heels, numbness, loss of bowel or bladder control) 5. any other symptoms that concern you C. Please call the office at if you have any concerns or questions about your operation or recovery. D. No smoking! Smoking drastically decreases the chance of a solid fusion. E. Do not take any anti-inflammatory medications (Indocin, Advil, Motrin, Aspirin, Naprosyn, etc.) as these may inhibit the chance of a solid fusion. Tylenol is okay to take for pain. MANAGING PAIN AFTER SPINAL SURGERY 1. Narcotic medication is intended for short-term use and will be provided for surgical pain. Surgical pain usually lasts for a period of 4-6 weeks. Narcotic medication includes Percocet, Vicodin, Darvocet, Tylenol #3 or Lortab. 2. Longer-term pain is more appropriately treated with non-narcotic medication such as Tylenol ES. 3. Muscle spasm is not appropriately treated with narcotics. Muscle relaxers such as Soma, Flexeril or Skelaxin can be used along with Tylenol ES. 4. Remember that we all live with some "aches and pains". This is not unusual or uncommon after an injury or as we get older. a. Back pain is expected and may include muscle spasms for 4 to 6 weeks after surgery. The pain should gradually improve. If the pain worsens for no apparent reason, please contact the office. b. Intermittent leg pain may also be experienced and should not be concerned about unless it worsens for no apparent reason. If so, please contact the office. 5. We will provide appropriate medication within the normal guidelines of their prescribed use. We will also be very cautious and aware of potential abuse and extended duration of patients' medication needs. a. Pain medications are for your comfort and to assist with sleep and rest so that the tissue can heal. They are not provided in order to return to normal activity and should not be used through the day. To do so or worsening pain at night can result from ongoing tissue damage and development of tolerance to the prescribed medicine. 6. Please allow 2-3 days to process refills. Prescriptions will not be mailed but must be picked up at the office. FOLLOW UP VISIT: Keep your scheduled follow-up appointment. Any questions, please call the office at . Pending Studies at Discharge: No Stand-Alone Forms: My Sensitive Object, Smoking Cessation Medications and DC Order Prescriptions: New tramadol 50 mg tablet 50 mg PO Q6H PRN (Reason: pain, moderate) Qty: 30 RF: 0 oxycodone 5 mg tablet 5 mg PO Q6H PRN (Reason: pain, severe) Qty: 30 RF: 0 Continued gabapentin 600 mg Tablet 600 mg PO TID RF: 0 perphenazine 2 mg Tablet 2 mg PO HS RF: 0 ipratropium-albuterol 0.5 mg-3 mg(2.5 mg base)/3 mL Solution For Nebulization 3 ml INHALATION Q4H PRN (Reason: sob) RF: 0 meloxicam 15 mg Tablet 15 mg PO QAM RF: 0 lisinopril 20 mg Tablet 20 mg PO QAM RF: 0 sennosides-docusate sodium [Stool Softener-Laxative] 8.6-50 mg Tablet 1 tab-cap PO BID RF: 0 sertraline 100 mg Tablet 100 mg PO HS RF: 0 lorazepam 0.5 mg Tablet 0.5 mg PO Q8H PRN (Reason: Anxiety) RF: 0 amitriptyline 10 mg Tablet 10 mg PO HS RF: 0 pantoprazole [Protonix] 40 mg Tablet,Delayed Release (Dr/Ec) 40 mg PO QAM RF: 0 aspirin 81 mg Tablet 81 mg PO QAM RF: 0 cyanocobalamin (vitamin B-12) [Vitamin B-12] 2,000 mcg Tablet Extended Release 6,000 mcg PO QAM RF: 0 Hair,Skin and Nails Tablet 2 tab PO QAM RF: 0 albuterol sulfate 90 mcg/actuation Hfa Aerosol Inhaler 2 puff INHALATION QID PRN (Reason: sob) RF: 0 loratadine 10 mg Tablet 10 mg PO QAM RF: 0 cholecalciferol (vitamin D3) [Vitamin D3] 25 mcg (1,000 unit) Capsule 25 mcg PO QAM RF: 0 Discharge Orders: Discharge Order (Routine); Ordered 07/17/21 Ordered By: Tomas West Admission Data Admit Date/Time: 07/15/21 14:11 Attending Provider: Tomas West Admit Provider: Tomas West Primary Care Provider: Erwin Cerda Other Providers: Ivana Zurita ; Juliocesar Pickard ; Tequila Gutierrez Other Interventions: Discharge Summary Assessment (RN) Last Done: 07/17/21 11:10
--- NOTE | 2021-07-17 16:27 | Hospitalist Progress Note ---
Date of Service July 17, 2021 Assessment & Plan (1) Neurogenic claudication due to lumbar spinal stenosis: Plan: per [facility] Tequila Rubalcava notes with addendum: Pt is s/p lumbar decompression/fusion by Dr. West today - POD #1 PT, pain control, DVT prophylaxis, activity per primary team Encourage incentive spirometry Acute blood loss anemia expected in setting of surgical blood loss and hemodilution hgb 9.1 today, pre op 11.8 Hg stable at 9.3 asymptomatic (2) Alcohol ingestion, more than 4 drinks/day: Plan: no signs of overt alcohol withdrawal (3) COPD (chronic obstructive pulmonary disease): Plan: no acute exac as needed inhalers (4) Anxiety: (5) Depression: Plan: controlled continue home meds (6) HTN (hypertension): Plan: advised to increase fluid intake and resume Lisinopril tomorrow (7) GERD (gastroesophageal reflux disease): Plan: continue PPI (8) Fibromyalgia: Plan: stable continue home meds Plan: no medical contraindication for discharge today Admission and Anticipated Discharge Date Admission Date: July 15, 2021 Subjective Follow-up status post back surgery, hypertension, etc. Seen resting in bed, sitting up, comfortable, using incentive spirometer States she feels fine overall No chest pain, palpitations, dizziness Ambulating with no problems No other symptoms Review of Systems Review of Systems: all noted and negative except for above Physical Exam Physical Exam: General- oriented x 3, not in distress, speaks in sentences with no effort or accessory muscle use Eyes- anicteric Neck- no JVD Lungs- clear breath sounds bilaterally, no rales/wheezes Heart- normal rate, regular rhythm; no murmurs Abdomen- normal bowel sounds, nondistended, soft, nontender Extremities- no pretibial edema, no calf tenderness Neuro- alert, oriented x 3; no gross focal neurologic deficits Skin- warm & dry Results & Data Results & Data ([facility]) Vital Signs (Past 12 Hours) Vital Signs Temp Pulse Pulse Pulse Resp BP BP 07/17/21 11:10 36.6 C 83 91 H 91 H 16 116/67 119/69 07/17/21 07:23 36.6 C 91 H 16 116/67 Pulse Ox 07/17/21 11:10 100 07/17/21 07:23 100 all noted and reviewed including below
== END 2021-07-17 13:57 | disposition home or self-care (01) | DRG 454 ==
LOC: ASU 08:10 → 3E 14:11

== ENCOUNTER 2022-07-29 07:51 | Inpatient (IN) ==
--- NOTE | 2022-07-10 14:14 | PAT Medication Instructions ---
Medication Instructions Date of Service July 10, 2022 Home Medications albuterol sulfate 90 mcg/actuation aerosol inhaler 2 puff inhalation QID PRN sob amitriptyline 10 mg tablet 10 mg PO HS cholecalciferol (vitamin D3) 25 mcg (1,000 unit) capsule (Vitamin D3) 25 mcg PO QAM cyanocobalamin (vitamin B-12) 2,000 mcg tablet,extended release (Vitamin B-12 ER) 6,000 mcg PO QAM ipratropium 0.5 mg-albuterol 3 mg (2.5 mg base)/3 mL nebulization soln 3 ml inhalation Q4H PRN sob lisinopril 20 mg tablet 20 mg PO QAM 05/15/21 [History Confirmed 07/10/22] loratadine 10 mg tablet 10 mg PO QAM lorazepam 0.5 mg tablet 0.5 mg PO Q8H PRN Anxiety meloxicam 15 mg tablet 15 mg PO QAM multivitamin with minerals 2 tab PO QAM pantoprazole 40 mg tablet,delayed release (Protonix) 40 mg PO QAM perphenazine 2 mg tablet 2 mg PO HS sennosides 8.6 mg-docusate sodium 50 mg tablet (Stool Softener-Laxative) 1 tab- cap PO BID sertraline 100 mg tablet 100 mg PO HS ascorbic acid (vitamin C) 1,000 mg tablet (Vitamin C) 1 g PO QAM fluticasone 250 mcg-salmeterol 50 mcg/dose blistr powdr for inhalation (Advair Diskus) 1 inh inhalation BID gabapentin 800 mg tablet 800 mg PO TID montelukast 10 mg tablet (Singulair) 10 mg PO HS oxycodone 5 mg tablet 10 mg PO Q6H PRN pain, severe ASK your surgeon for instructions meloxicam 15 mg tablet 15 mg PO QAM ASK your prescriber and surgeon amitriptyline 10 mg tablet 10 mg PO HS DO NOT take the morning of surgery cholecalciferol (vitamin D3) 25 mcg (1,000 unit) capsule (Vitamin D3) 25 mcg PO QAM cyanocobalamin (vitamin B-12) 2,000 mcg tablet,extended release (Vitamin B-12 ER) 6,000 mcg PO QAM lisinopril 20 mg tablet 20 mg PO QAM loratadine 10 mg tablet 10 mg PO QAM multivitamin with minerals 2 tab PO QAM sennosides 8.6 mg-docusate sodium 50 mg tablet (Stool Softener-Laxative) 1 tab- cap PO BID ascorbic acid (vitamin C) 1,000 mg tablet (Vitamin C) 1 g PO QAM Take morning of surgery With a small sip of water, OTHERWISE NOTHING TO EAT OR DRINK AFTER MIDNIGHT: albuterol sulfate 90 mcg/actuation aerosol inhaler 2 puff inhalation QID PRN sob (use if needed; please bring rescue inhaler with you to hospital day of surgery if possible) ipratropium 0.5 mg-albuterol 3 mg (2.5 mg base)/3 mL nebulization soln 3 ml inhalation Q4H PRN sob (if needed) lorazepam 0.5 mg tablet 0.5 mg PO Q8H PRN Anxiety (if needed) pantoprazole 40 mg tablet,delayed release (Protonix) 40 mg PO QAM fluticasone 250 mcg-salmeterol 50 mcg/dose blistr powdr for inhalation (Advair Diskus) 1 inh inhalation BID gabapentin 800 mg tablet 800 mg PO TID oxycodone 5 mg tablet 10 mg PO Q6H PRN pain, severe (if needed) Take evening before surgery albuterol sulfate 90 mcg/actuation aerosol inhaler 2 puff inhalation QID PRN sob (if needed) ipratropium 0.5 mg-albuterol 3 mg (2.5 mg base)/3 mL nebulization soln 3 ml inhalation Q4H PRN sob (if needed) lorazepam 0.5 mg tablet 0.5 mg PO Q8H PRN Anxiety (if needed) perphenazine 2 mg tablet 2 mg PO HS sennosides 8.6 mg-docusate sodium 50 mg tablet (Stool Softener-Laxative) 1 tab- cap PO BID sertraline 100 mg tablet 100 mg PO HS fluticasone 250 mcg-salmeterol 50 mcg/dose blistr powdr for inhalation (Advair Diskus) 1 inh inhalation BID gabapentin 800 mg tablet 800 mg PO TID montelukast 10 mg tablet (Singulair) 10 mg PO HS oxycodone 5 mg tablet 10 mg PO Q6H PRN pain, severe (if needed) Other Notes If you have any questions please call us at [phone] or [phone] or [phone] or [phone]
--- NOTE | 2022-07-15 10:52 | Anesthesiology Consultation ---
Date of Service July 15, 2022 Assessment & Plan (1) Encounter for pre-operative examination: - COVID screening: Per assessment on 07/15: No known COVID-19 positive contacts. Travel screen negative. Patient vaccinated. Patient had sinus infection 07/03- prescribed/completed abx + steroid. Covid test done 07/15 at [facility]- result was negative. - S/P L4-S1 decompression/fusion (07/15/21): Grade view 1, MAC#3, ETT 7.0 at [facility] - Heavy ETOH use: 6 beers per day (typically after lunch, no morning ETOH use per patient) Chart Review Chart Review: Acceptable Risk for Surgery (pending evaluation AM DOS) and Patient seen in Pre Admission Testing Teaching & Discussion Pre-Anesthesia Teaching/Discussion Notes: Instructed NPO after midnight before surgery,except medications with 15 cc of water. Medication instructions provided according to the [facility] guidelines. History Surgery Operation Date: 07/29/22 09:35 Proposed Procedures p L3-L4 Decompression, L3-S1 Fusion, L4-S1 Hardware Removal, Spinal Cord Monitoring - Tomas West DO Height/Weight Height: 5 ft 2 in Weight: 60.6 kg Allergies Allergy/AdvReac Type Severity Reaction Status Date / Time nitrofurantoin Allergy Intermediate SOB Verified 07/10/22 12:51 sumatriptan [From Imitrex] AdvReac Intermediate neck pain Verified 07/15/22 10:56 Medications Home Medications Medication Instructions Recorded Confirmed Last Taken albuterol sulfate 90 mcg/actuation 2 puff inhalation QID PRN sob 05/15/21 07/10/22 07/15/21 07:00 aerosol inhaler amitriptyline 10 mg tablet 10 mg PO HS 05/15/21 07/10/22 07/14/21 19:30 cholecalciferol (vitamin D3) 25 25 mcg PO QAM 05/15/21 07/10/22 07/14/21 07:00 mcg (1,000 unit) capsule (Vitamin D3) cyanocobalamin (vitamin B-12) 6,000 mcg PO QAM 05/15/21 07/10/22 07/14/21 07:00 2,000 mcg tablet,extended release (Vitamin B-12 ER) ipratropium 0.5 mg-albuterol 3 mg 3 ml inhalation Q4H PRN sob 05/15/21 07/10/22 Unknown (2.5 mg base)/3 mL nebulization soln lisinopril 20 mg tablet 20 mg PO QAM 05/15/21 07/10/22 07/14/21 07:00 loratadine 10 mg tablet 10 mg PO QAM 05/15/21 07/10/22 07/14/21 07:00 lorazepam 0.5 mg tablet 0.5 mg PO Q8H PRN Anxiety 05/15/21 07/10/22 07/14/21 20:00 meloxicam 15 mg tablet 15 mg PO QAM 05/15/21 07/10/22 07/08/21 07:00 multivitamin with minerals 2 tab PO QAM 05/15/21 07/10/22 07/11/21 07:00 (Hair,Skin and Nails tablet) pantoprazole 40 mg tablet,delayed 40 mg PO QAM 05/15/21 07/10/22 07/15/21 07:00 release (Protonix) perphenazine 2 mg tablet 2 mg PO 05/15/21 07/10/22 07/14/21 20:00 sennosides 8.6 mg-docusate sodium 1 tab-cap PO BID 05/15/21 07/10/22 07/14/21 20:00 50 mg tablet (Stool Softener-Laxative) sertraline 100 mg tablet 100 mg PO 05/15/21 07/10/22 07/14/21 20:00 ascorbic acid (vitamin C) 1,000 mg 1 g PO QAM 07/10/22 07/10/22 Unknown tablet (Vitamin C) fluticasone 250 mcg-salmeterol 50 1 inh inhalation BID 07/10/22 07/10/22 Unknown mcg/dose blistr powdr for inhalation (Advair Diskus) gabapentin 800 mg tablet 800 mg PO TID 07/10/22 07/10/22 Unknown montelukast 10 mg tablet 10 mg PO HS 07/10/22 07/10/22 Unknown (Singulair) oxycodone 5 mg tablet 10 mg PO Q6H PRN pain, severe 07/10/22 07/10/22 Unknown Past Medical History Medical History Anxiety Asthma Stable COPD (chronic obstructive pulmonary disease) Stable DDD (degenerative disc disease) Depression Fibromyalgia Stable GERD (gastroesophageal reflux disease) Well controlled, stable Graves' disease in remission No meds- has been euthyroid off meds/being monitored HLD (hyperlipidemia) HTN (hypertension) Ischemic stroke Approximately 5 years ago, no deficits Migraines Spinal stenosis Suspected sleep apnea Witnessed by (rare episodes)- no formal sleep study Urinary incontinence Exercise / Class Metabolic Activity III < 4 Walking/Shop/Light housework Past Family History Family History Other No family history of adverse response to anesthesia Past Surgical History Surgical History (Updated 07/15/22 @ 11:10 by Anastasiia Gutierrez) History of appendectomy History of arthroscopy of right knee History of back surgery L4-S1 decompression/fusion (07/15/21): Grade view 1, MAC#3, ETT 7.0 at [facility] History of bronchoscopy History of bunionectomy History of cataract surgery left History of cholecystectomy History of colonoscopy History of esophagogastroduodenoscopy (EGD) History of hammertoe correction History of repair of hiatal hernia History of total abdominal hysterectomy and bilateral salpingo-oophorectomy S/P correction of deviated nasal septum Past Anesthesia History No Family Hx of Anesthesia Complications and Other (Dyspnea post-op x1 (with bronchoscopy, resolved with breathing treatment)) History of PONV No Hx of PONV and No Hx of Motion Sickness Social History Smoking Status: Former smoker tobacco type: cigarettes Do You Dip or Chew Tobacco: No Smoking End Date: Quit 4+ weeks ago Hx Alcohol Use: Yes Alcohol type: beer alcohol intake frequency: 3 or more drinks per day (6 beers per day (typically after lunch, no morning ETOH use)) Hx Substance Use: No substance use type: does not use Review of Systems Witnessed apneic events by (rare episodes)- no formal sleep study. Patient denies chest pain, shortness of breath, dyspnea on exertion, fever, chills, cough, wheezing, palpitations. Physical Exam Vital Signs VITALS BP 101/64 P 85 TEMP 98.2 SP02 96%RA RESP 16 PHYSICAL Full cervical extension range of motion. Full TMJ range of motion. TMD 3 finger breaths Mallampati Score 1 Dentition: full dentures upper/lower Lungs: clear throughout to auscultation Cardiac: regular rate and rhythm, no murmurs noted Spine: normal Carotid arteries: negative bruit Extremities: no edema Lab Results Anesthesia Preop Results Results Anesthesia Widget: WBC 5.33 K/ul (4.8-10.8) 07/15/22 Hgb 11.8 g/dl (12.0-16.0) L 07/15/22 Hct 34.7 % (37.0-47.0) L 07/15/22 Plt 198 K/uL (130-400) 07/15/22 Na 134 mmol/L (136-145) L 07/15/22 K 4.7 mmol/L (3.5-5.1) 07/15/22 Cl 101 mmol/L (98-107) 07/15/22 CO2 27 mmol/L (21-32) 07/15/22 BUN 27 mg/dl (6-23) H 07/15/22 Creat 1.17 mg/dl (0.6-1.2) 07/15/22 Glucose Level 81 mg/dl (70-99(Fasting)) 07/15/22 PT 11.5 Seconds (9.0-12.0) 07/15/22 PTT 27.3 Seconds (21.0-31.0) 07/15/22 INR 1.1 (0.9-1.1) 07/15/22 TSH 4.653 uIu/ml (0.300-4.500) H 07/15/22 Free T4 0.84 ng/dl (0.61-1.60) 07/15/22 Urine Color Yellow 07/15/22 Urine Appearance Clear (Clear) 07/15/22 Urine pH 5.5 (4.5-7.5) 07/15/22 Urine Specific [place] 1.012 (1.000-1.030) 07/15/22 Urine Protein Negative (Negative) 07/15/22 Urine Glucose (UA) Negative (Negative) 07/15/22 Urine Ketones Negative (Negative) 07/15/22 Urine Blood 2+ (Negative) H 07/15/22 Urine Nitrite Negative (Negative) 07/15/22 Urine Bilirubin Negative (Negative) 07/15/22 Urine Urobilinogen Negative (Negative) 07/15/22 Urine Leukocyte Esterase Negative (Negative) 07/15/22 Urine WBC (Auto) 1-5 /hpf (0-5) 07/15/22 Urine RBC (Auto) 5-10 /hpf (0-4) H 07/15/22 Urine Hyaline Casts (Auto) 1-5 /lpf (0-5) 07/15/22 Urine Epithelial Cells (Auto) >30 /lpf (0-5) H 07/15/22 Urine Bacteria (Auto) Negative (Negative) 07/15/22 Blood Type A Negative 07/15/22 Antibody Screen NEGATIVE 07/15/22 Testing Electrocardiogram Date: 07/15/22 NSR at 78bpm. Chest X-Ray Date: 07/07/22 Findings: + NAD COVID-19 Risk Screen Screening Information COVID-19 Screen Date: 07/15/22 Exposure 21 Days Family/Household +COVID Last 21 Days: No Exposure 10 Days Any COVID Exposure Last 10 Days: No Symptoms Last 10 Days Experienced COVID Sx Last 10 Days: No + COVID 0-90 Days COVID + in Last 0-90 Days: No
[~2022-07-29 07:51] MED LIST changes: +DexMEDEtomidine HCL IV 100 MCG/ML VIAL IV ONE; +REMIFENTANIL HCL 1 MG VIAL IV ONE; -ceFAZolin 1000MG 1,000 MG/7.5 ML SYR IV SCH; +ceFAZolin 2000MG 2,000 MG/15 ML SYR IV SCH
[2022-07-29] MEDS ORDERED: fentaNYL citrate PF 100 MCG/2 ML VIAL IV PRN (09:01)
[2022-07-29] MEDS ORDERED: ATROPINE SULFATE 0.1 MG/ML 10ML SYR IV PRN (09:01)
[2022-07-29] MEDS ORDERED: ONDANSETRON INJ 2 MG/ML 2 ML VIAL IV PRN ×2 (09:01→13:46)
[2022-07-29] MEDS ORDERED: ePHEDrine sulfate 50 MG/ML AMP IV PRN (09:01)
--- NOTE | 2022-07-29 10:05 | History & Physical Bridge Note ---
Date of Service July 29, 2022 History & Physical Bridge Note I have examined the patient, reviewed the History & Physical and in the interval since the performance of the History & Physical I have noted the following changes of clinical significance: no changes noted
--- NOTE | 2022-07-29 10:06 | History & Physical Report ---
Date of Service July 29, 2022 Assessment & Plan (1) Neurogenic claudication due to lumbar spinal stenosis: Plan: L3-L4 decompression, L3-S1 fusion, L4-S1 hardware removal History of Present Illness Chief Complaint: Back and leg pain Primary Care Provider: Erwin Cerda This is a 61-year-old female who presents with above-chronic persistent back and leg pain after failing course of nonoperative care she is here for surgical invention. Allergies Allergy/AdvReac Type Severity Reaction Status Date / Time nitrofurantoin Allergy Intermediate SOB Verified 07/29/22 08:15 sumatriptan [From Imitrex] AdvReac Intermediate neck pain Verified 07/29/22 08:15 Home Medications Medication Instructions Recorded Confirmed Type albuterol sulfate 90 mcg/actuation 2 puff inhalation QID PRN sob 05/15/21 07/29/22 History aerosol inhaler amitriptyline 10 mg tablet 10 mg PO HS 05/15/21 07/29/22 History cholecalciferol (vitamin D3) 25 25 mcg PO QAM 05/15/21 07/29/22 History mcg (1,000 unit) capsule (Vitamin D3) cyanocobalamin (vitamin B-12) 6,000 mcg PO QAM 05/15/21 07/29/22 History 2,000 mcg tablet,extended release (Vitamin B-12 ER) ipratropium 0.5 mg-albuterol 3 mg 3 ml inhalation Q4H PRN sob 05/15/21 07/29/22 History (2.5 mg base)/3 mL nebulization soln lisinopril 20 mg tablet 20 mg PO QAM 05/15/21 07/29/22 History loratadine 10 mg tablet 10 mg PO QAM 05/15/21 07/29/22 History lorazepam 0.5 mg tablet 0.5 mg PO Q8H PRN Anxiety 05/15/21 07/29/22 History meloxicam 15 mg tablet 15 mg PO QAM 05/15/21 07/29/22 History multivitamin with minerals 2 tab PO QAM 05/15/21 07/29/22 History (Hair,Skin and Nails tablet) pantoprazole 40 mg tablet,delayed 40 mg PO QAM 05/15/21 07/29/22 History release (Protonix) perphenazine 2 mg tablet 2 mg PO HS 05/15/21 07/29/22 History sennosides 8.6 mg-docusate sodium 1 tab-cap PO BID 05/15/21 07/29/22 History 50 mg tablet (Stool Softener-Laxative) sertraline 100 mg tablet 100 mg PO HS 05/15/21 07/29/22 History ascorbic acid (vitamin C) 1,000 mg 1 g PO QAM 07/10/22 07/29/22 History tablet (Vitamin C) fluticasone 250 mcg-salmeterol 50 1 inh inhalation BID 07/10/22 07/29/22 History mcg/dose blistr powdr for inhalation (Advair Diskus) gabapentin 800 mg tablet 800 mg PO TID 07/10/22 07/29/22 History montelukast 10 mg tablet 10 mg PO HS 07/10/22 07/29/22 History (Singulair) oxycodone 5 mg tablet 10 mg PO Q6H PRN pain, severe 07/10/22 07/29/22 History Past Med/Surg History Medical History Anxiety Asthma Stable COPD (chronic obstructive pulmonary disease) Stable DDD (degenerative disc disease) Depression Fibromyalgia Stable GERD (gastroesophageal reflux disease) Well controlled, stable Graves' disease in remission No meds- has been euthyroid off meds/being monitored HLD (hyperlipidemia) HTN (hypertension) Ischemic stroke Approximately 5 years ago, no deficits Migraines Spinal stenosis Suspected sleep apnea Witnessed by (rare episodes)- no formal sleep study Urinary incontinence Surgical History History of appendectomy History of arthroscopy of right knee History of back surgery L4-S1 decompression/fusion (07/15/21): Grade view 1, MAC#3, ETT 7.0 at [facility] History of bronchoscopy History of bunionectomy History of cataract surgery left History of cholecystectomy History of colonoscopy History of esophagogastroduodenoscopy (EGD) History of hammertoe correction History of repair of hiatal hernia History of total abdominal hysterectomy and bilateral salpingo-oophorectomy S/P correction of deviated nasal septum Family History Other No family history of adverse response to anesthesia Social History Smoking Status: Former smoker Smoking End Date: Quit 4+ weeks ago; Second Hand Exposure: No; Do You Dip or Chew Tobacco: No; Tobacco Cessation Education Requested by Patient: No Hx Alcohol Use: Yes Alcohol type: beer Hx Substance Use: No Preferred Language: Thai Communication Ability: Effective Medical Assembly Required: No Beliefs That Will Affect Care: None marital status: Current Living Situation: Spouse Feels Safe at Home: Yes Safety Concerns: Feels Safe At This Time Assistive Devices: Cane, Denture - Upper, Denture - Lower and Glasses Physical Exam Physical Exam: Patient is alert and oriented Heart regular rhythm Lungs clear Results & Data Results & Data Vital Signs (Past 12 Hours) Vital Signs O2 Del Method 07/29/22 08:38 Room Air
[2022-07-29] MEDS ORDERED: ceFAZolin 330 MG/ML 1 GM VIAL ONE (10:31)
[2022-07-29] MEDS ORDERED: BUPIVACAINE/EPINEPHRINE 0.25% 1:200,000 30 ML VIAL ONE (10:31)
[2022-07-29] MEDS ORDERED: MIDAZOLAM HCL 1 MG/ML 2ML VIAL ONE (10:39)
[2022-07-29] MEDS ORDERED: fentaNYL citrate PF 100 MCG/2 ML VIAL ONE (10:39)
[2022-07-29] MEDS ORDERED: DEXAMETHASONE SOD INJ 4 MG/ML VIAL ONE (10:44)
[2022-07-29] MEDS ORDERED: LIDOCAINE 2% MPF LOCAL 5 ML VIAL ONE (10:44)
[2022-07-29] MEDS ORDERED: ONDANSETRON INJ 2 MG/ML 2 ML VIAL ONE (10:44)
[2022-07-29] MEDS ORDERED: PROPOFOL IV EMULSION 10 MG/ML 20 ML VIAL IV ONE (10:44)
[2022-07-29] MEDS ORDERED: ROCURONIUM BROMIDE 10 MG/ML 5 ML VIAL IV ONE (10:44)
[2022-07-29] MEDS ORDERED: diphenhydrAMINE 50 MG/ML VIAL ONE (11:25)
[2022-07-29] MEDS ORDERED: ePHEDrine sulfate 50 MG/ML AMP ONE (12:09)
[2022-07-29] MEDS ORDERED: FLOSEAL HEMOSTATIC MATRIX 10ML TOP ONE (12:31)
[2022-07-29] MEDS ORDERED: SUGAMMADEX SODIUM 200 MG/2 ML VIAL IV ONE (12:31)
--- NOTE | 2022-07-29 12:34 | Operative Report ---
Post Operative Report Pre & Post Diagnosis Operation Date: 07/29/22 09:35 Pre-Op Diagnosis: Neurogenic Claudication due to Lumbar Spinal Stenosis Post-Op Diagnosis: Neurogenic Claudication due to Lumbar Spinal Stenosis I identified the patient and participated in the time-out.: Yes Procedure Operation Date: 07/29/22 09:35 Actual Procedures #1 removal of posterior instrumentation L4-S1. #2 exploration of fusion L4 S1. #3 lumbar decompression bilateral medial facetectomies and foraminotomies L3-L4. #4 posterior spinal fusion L3-L4. #5 placement posterior instrumentation L3- S1. #6 interbody fusion L3-L4. #7 placement of Spira 11 x 26 mm cage at L3-L4. #8 placement locally harvested morselized autograft in the posterior gutters. #9 placement of I factor model V toss interbody space and posterior gutters. Surgeon Tomas West, Master Planner Nay Conte Estimated Blood Loss 300 Findings Consistent with Post-Op Diagnosis Specimens None Indications this is a 61-year-old female with above-mentioned diagnosis of failed course of nonoperative care she is here for surgical invention. Description of Procedure Patient was met with identified informed consent obtained. Patient was then taken to the operative suite underwent intubation placed in the prone position the Jack table top Madhav frame. All bony prominences well-padded eyes inspected to ensure no external pressure placed upon the. This point the lumbar spine was prepped and draped no sterile fashion. Sharp dissection with the assistance of Bovie cautery was performed down to and exposing the lamina and transverse processes of L3 and instrumentation at L4-L5 and S1 levels bilaterally. I then proceeded move the hardware bilaterally explore the fusion mass noting it to be mature and intact. I then performed a complete laminectomy of L3 including bilateral medial facetectomies and foraminotomies addressing severe spinal stenosis. Pedicle screws were then placed at L3-L4 and S1 levels bilaterally with assistance of fluoroscopy and appropriately sized lonnie placed. By way of transforaminal approach and left complete discectomy of L3-L4 was performed endplates curetted to subcortical bleeding bone and a 11 x 26 mm Spira cage with I factor tapped in position. The rods then locked into final position bilaterally. The transverse processes of L3 and L4 burred to subcortically bone. I factor combined with the test and locally harvested morselized autograft placed in the posterior gutters. 15 round [place] drain inserted. The incision was then closed with 1 Vicryl the fascia 2-0 Vicryl subcutaneously and 4 Monocryl for final skin closure. Steri-Strips and a sterile dressing placed. Patient waken taken to PACU in stable condition. Please note spinal cord monitoring visualized at the procedure no changes noted. Lastly Nay Conte was present at the entire surgery involved the patient positioning complex portion of the surgery and final skin closure. I attest to the content of the Intraoperative Record and any orders documented therein. Any exceptions are noted below.
--- NOTE | 2022-07-29 13:20 | Anesthesiology Progress Note ---
Date of Service July 29, 2022 Anesthesia Post Procedure Vital Signs Vital Signs: Temp Pulse Resp BP Pulse Ox O2 Del Method O2 Flow Rate 07/29/22 13:10 74 16 155/80 H 100 Oxymask 6 07/29/22 13:00 88 18 149/74 H 100 Oxymask 6 07/29/22 12:53 97.5 F L 90 16 164/76 H 100 Oxymask 9 07/29/22 08:38 Room Air Pain Intensity Lower Back: Pain Intensity: 7 Transfer of Care Handoff Completed per policy Notes Mental Status: alert / awake / arousable and participated in evaluation Patient Amnestic to Procedure: Yes Nausea / Vomiting: adequately controlled Pain: adequately controlled Airway Patency, RR, SpO2: stable & adequate BP & HR: stable & adequate Hydration State: stable & adequate Anesthetic Complications: no major complications apparent and Pt Satisfied with anesthetic care
[2022-07-29] MEDS ORDERED: LORazepam 0.5 MG TAB PO PRN (13:46)
[2022-07-29] MEDS ORDERED: ALBUTEROL HFA 8 GM INHALER INH PRN (13:46)
[2022-07-29] MEDS ORDERED: bisacodyL 10 MG SUPP PR PRN (13:46)
[2022-07-29] MEDS ORDERED: ACETAMINOPHEN 1,000 MG/100 ML VIAL IV PRN (13:46)
[2022-07-29] MEDS ORDERED: LORazepam 2 MG/1 ML VIAL IV PRN (13:46)
[2022-07-29] MEDS ORDERED: SOD PHOSPHATE/SOD BIPHOSPHATE ENEMA 132 ML BTL PR PRN (13:46)
[2022-07-29] MEDS ORDERED: ACETAMINOPHEN 500 MG TAB PO PRN (13:46)
[2022-07-29] MEDS ORDERED: METOCLOPRAMIDE HCL INJ 5 MG/ML 2 ML VIAL IV PRN (13:46)
[2022-07-29] MEDS ORDERED: DO NOT ADMINISTER PNEUMOCOCCAL VACCINE PRN (13:46)
[2022-07-29] MEDS ORDERED: ALUMINUM/MAGNESIUM SUSP 30 ML UDC PO PRN (13:46)
[2022-07-29] MEDS ORDERED: FAMOTIDINE 20 MG TAB PO PRN (13:46)
[2022-07-29] MEDS ORDERED: traMADol HCL 50 MG TABLET PO PRN (13:46)
[2022-07-29] MEDS ORDERED: hydrOXYzine HCl 25 MG TAB PO PRN (13:46)
[2022-07-29] MEDS ORDERED: ALBUT/IPRATROP 3MG/0.5MG NEB 3 ML VIAL INH PRN (13:46)
[2022-07-29] MEDS ORDERED: PROMETHAZINE HCL 12.5 MG in SODIUM CHLORIDE 0.9% 50 ML IV PRN (13:46)
[2022-07-29] MEDS ORDERED: diphenhydrAMINE Capsule 25 MG CAP PO PRN (13:46)
[2022-07-29] MEDS ORDERED: DO NOT ADMINISTER FLU VACCINE PRN (13:46)
[2022-07-29] MEDS ORDERED: NALOXONE HCL 0.4 MG/1 ML VIAL/CARP IV PRN (13:46)
[2022-07-29] MEDS ORDERED: ONDANSETRON 4 MG OD TAB PO PRN (13:46)
[2022-07-29] MEDS ORDERED: MAGNESIUM HYDROXIDE SUSP 30 ML UDC PO PRN (13:46)
--- NOTE | 2022-07-29 13:54 | Fluoroscopy Report ---
INTRAOPERATIVE RADIOGRAPHS CLINICAL HISTORY: Lumbar spinal fusion surgery. Fluoro time: 10 seconds Exposure: 3.90 mGy 522 spot fluoroscopic views of the lumbar spine are presented. There has been discectomy at L3-L4, L4 -L5, and L5-S1 with laminectomy and posterior fusion from L3-S1. Interpedicular screws are present at all levels with the exception of L5. The orthopedic hardware appears intact. IMPRESSION: Intraoperative images from lumbar spinal fusion surgery as above. Electronically signed by: Ciaran Stephens M.D. 07/29/2022 1:53 PM
[2022-07-29] MEDS: LACTATED RINGER'S 1,000 ML IV SCH ×2 (14:14→23:02)
[2022-07-29] MEDS: HYDROmorphone INJ 1 MG/ML SYRINGE IV PRN ×2 (14:14→18:20)
[2022-07-29] MEDS ORDERED: LORazepam 1 MG TAB PO PRN (15:16)
--- NOTE | 2022-07-29 15:18 | Consultation ---
Date of Consultation July 29, 2022 Assessment & Plan (1) Neurogenic claudication due to lumbar spinal stenosis: (2) HTN (hypertension): (3) HLD (hyperlipidemia): (4) Fibromyalgia: (5) Depression: (6) Alcohol ingestion, more than 4 drinks/day: (7) COPD (chronic obstructive pulmonary disease): Plan This is a 61-year-old female who has significant past medical history of COPD, former tobacco abuse, alcohol abuse, COPD, fibromyalgia, depression, history of migraines, HTN, HLD who presents for elective lumbar procedure by Dr. West. Neurogenic claudication due to lumbar spinal stenosis status post lumbar decompression fusion L3-S1 by Dr. West, POD #0 EBL 300 mL Tolerated procedure well Pain/wound management per orthopedics Activity and therapy as prescribed by orthopedic Encourage incentive spirometry Monitor hemoglobin, preop 11.8 COPD No acute exacerbation Continue inhalers Hypertension Blood pressure on the lower side, will hold lisinopril Hyperlipidemia Continue statin Alcohol abuse Patient drinks 6 light beers daily, last drink yesterday During last hospitalization did not experience withdrawal symptoms AWSS protocol, prn ativan thiamine and folic acid supplementation Depression w/ anxiety fibromyalgia Hx of migraines continue home meds DVT ppx: per primary Dispo: per primary PCP: Erwin Cerda FULL CODE Thank you for this consultation. We will follow the patient with you during their hospital stay. You can reach a member of the [facility] Hospitalist Team 23/11 via hospitalist role on tiger text. A total of 45 minutes was spent with greater than 50% of that time personally viewing all current laboratory work and diagnostic imaging studies obtained in the ED. Additionally, I was able to view the patients past medication reconciliation and history with direct visualization in the patients chart. Included in the time above, a portion of that time was spent assessing the patient while discussing and collaborating with specialists, if necessary, and making medical decision making on treatment plan. All of the above was collaborated with []. Please see addendum for further details. Supervising Physician Co-Signing Physician Notes 61 yo F w/ PMH of COPD, alcohol abuse (last drink yesterday, 6 beers/day), fibromyalgia, depression, HTN, HLD, migraine is seen as medical consult for s/p elective lumbar Sx by Dr. West. Pt on RA, hemodynamically stable. labs in am, watch out for ABL anemia. IS. Pain Mx, PT/OT. DVT Px per Primary. AWSS protocol for alcohol abuse hx. On Exam : GENERAL: Alert and oriented x3. NAD, on RA. HEENT: No pallor, no icterus. Pupils equal, round and reactive to light. Oral mucosa moist. NECK: No JVD, no neck masses. HEART: S1 and S2 heard. Regular rate and rhythm. No murmur, no gallop. RESPIRATORY SYSTEM: Normal AP diameter. No accessory muscle use. No wheezing, no crackles. ABDOMEN: Soft, bowel sounds present, nontender, no distention. CENTRAL NERVOUS SYSTEM: No facial droop. Speech is clear. Obeys simple commands. Moves extremities. EXTREMITIES: No edema, no erythema seen. Distal NV status WNL. Lower back w/ clean dressing wo soakage. [place] drain w/ serosanguineous collection noted. UC w/ yellow urine collection noted. I have seen and examined the patient and have discussed the case with the provider above. I agree with the assessment and plan as stated. History of Present Illness Requesting Physician: Dr. West Reason for Consultation: Medical management Attending Physician: Tomas West, DO History of Present Illness This is a 61-year-old female who has significant past medical history of COPD, former tobacco abuse, alcohol abuse, COPD, fibromyalgia, depression, history of migraines, HTN, HLD who presents for elective lumbar procedure by Dr. West. Approximately 1 year ago patient underwent lumbar decompression fusion by Dr. West. According to at bedside, "she continued to have collapsing of her vertebrae and therefore needed another procedure." She presents today for L3-S1 lumbar decompression fusion and tolerated the procedure well. She has been drowsy postoperatively. Currently she complains of 6 out of 10 back pain with pain radiating to her right leg. It is similar pain that was present prior to procedure. She denies any recent illness, fever, chills, sweats, lightheadedness, dizziness, chest pain, shortness of breath, nausea, vomiting, abdominal pain, change in bowel or urinary habits prior to procedure. She does have Simental catheter in place. She is a former history of smoking. She drinks 6 light beers a day. Her does the same. She denies ever experiencing withdrawal and did not experience withdrawal during last hospitalization. Allergies Allergy/AdvReac Type Severity Reaction Status Date / Time nitrofurantoin Allergy Intermediate SOB Verified 07/29/22 08:15 sumatriptan [From Imitrex] AdvReac Intermediate neck pain Verified 07/29/22 08:15 Home Medications Medication Instructions Recorded Confirmed Type albuterol sulfate 90 mcg/actuation 2 puff inhalation QID PRN sob 05/15/21 07/29/22 History aerosol inhaler amitriptyline 10 mg tablet 10 mg PO HS 05/15/21 07/29/22 History cholecalciferol (vitamin D3) 25 25 mcg PO QAM 05/15/21 07/29/22 History mcg (1,000 unit) capsule (Vitamin D3) cyanocobalamin (vitamin B-12) 6,000 mcg PO QAM 05/15/21 07/29/22 History 2,000 mcg tablet,extended release (Vitamin B-12 ER) ipratropium 0.5 mg-albuterol 3 mg 3 ml inhalation Q4H PRN sob 05/15/21 07/29/22 History (2.5 mg base)/3 mL nebulization soln lisinopril 20 mg tablet 20 mg PO QAM 05/15/21 07/29/22 History loratadine 10 mg tablet 10 mg PO QAM 05/15/21 07/29/22 History lorazepam 0.5 mg tablet 0.5 mg PO Q8H PRN Anxiety 05/15/21 07/29/22 History meloxicam 15 mg tablet 15 mg PO QAM 05/15/21 07/29/22 History multivitamin with minerals 2 tab PO QAM 05/15/21 07/29/22 History (Hair,Skin and Nails tablet) pantoprazole 40 mg tablet,delayed 40 mg PO QAM 05/15/21 07/29/22 History release (Protonix) perphenazine 2 mg tablet 2 mg PO HS 05/15/21 07/29/22 History sennosides 8.6 mg-docusate sodium 1 tab-cap PO BID 05/15/21 07/29/22 History 50 mg tablet (Stool Softener-Laxative) sertraline 100 mg tablet 100 mg PO HS 05/15/21 07/29/22 History ascorbic acid (vitamin C) 1,000 mg 1 g PO QAM 07/10/22 07/29/22 History tablet (Vitamin C) fluticasone 250 mcg-salmeterol 50 1 inh inhalation BID 07/10/22 07/29/22 History mcg/dose blistr powdr for inhalation (Advair Diskus) gabapentin 800 mg tablet 800 mg PO TID 07/10/22 07/29/22 History montelukast 10 mg tablet 10 mg PO HS 07/10/22 07/29/22 History (Singulair) oxycodone 5 mg tablet 10 mg PO Q6H PRN pain, severe 07/10/22 07/29/22 History Patient History Medical History Anxiety Asthma Stable COPD (chronic obstructive pulmonary disease) Stable DDD (degenerative disc disease) Depression Fibromyalgia Stable GERD (gastroesophageal reflux disease) Well controlled, stable Graves' disease in remission No meds- has been euthyroid off meds/being monitored HLD (hyperlipidemia) HTN (hypertension) Ischemic stroke Approximately 5 years ago, no deficits Migraines Spinal stenosis Suspected sleep apnea Witnessed by (rare episodes)- no formal sleep study Urinary incontinence Surgical History History of appendectomy History of arthroscopy of right knee History of back surgery L4-S1 decompression/fusion (07/15/21): Grade view 1, MAC#3, ETT 7.0 at [facility] History of bronchoscopy History of bunionectomy History of cataract surgery left History of cholecystectomy History of colonoscopy History of esophagogastroduodenoscopy (EGD) History of hammertoe correction History of repair of hiatal hernia History of total abdominal hysterectomy and bilateral salpingo-oophorectomy S/P correction of deviated nasal septum Family History Other No family history of adverse response to anesthesia Social History Smoking Status: Former smoker Smoking End Date: Quit 4+ weeks ago; Second Hand Exposure: No; Do You Dip or Chew Tobacco: No; Tobacco Cessation Education Requested by Patient: No Hx Alcohol Use: Yes Alcohol type: beer Hx Substance Use: No Preferred Language: Latvian Communication Ability: 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 Beliefs That Will Affect Care: None marital status: Current Living Situation: Spouse Feels Safe at Home: Yes Safety Concerns: Feels Safe At This Time Assistive Devices: Cane, Denture - Upper, Denture - Lower and Glasses Review of Systems Review of Systems: All systems reviewed & are unremarkable except as noted in HPI & below Physical Exam Physical Exam: Constitutional: WD/WN, drowsy, but responsive to questions, vitals as above, NAD, lying in bed Head: Normocephalic, Atraumatic Eyes: PERRL, conjunctivae normal, anicteric sclerae ENMT: external ear and nose normal, oropharynx normal Neck: trachea midline, no thyromegaly normal visual inspection Respiratory: normal respiratory effort, lungs clear to auscultation, no wheeze, rales, rhonchi. Normal insp/exp effort, no accessory muscle use Cardiovascular: RRR, no murmur, no edema Vessels: no JVD or carotid bruit Chest: normal inspection of chest Abdomen: normal bowel sounds, soft, nontender, no hepatosplenomegaly Musculoskeletal: no cyanosis or clubbing, AROM x 4, lumbar dressing CDI, [place] drain with serosanguineous drainage Skin: no rashes, warm and dry normal turgor Neurologic: PERRL, EOMI, accommodation nl, no face palsy, no dysarthria CN's II-XI intact bilaterally and moves all extremities Psychiatric: A+Ox3, euthymic affect Lymphatic: no cervical or axillary lymphadenopathy : Simental cath draining yellow urine Results & Data Vital Signs (Past 12 Hours) Vital Signs Temp Pulse Pulse Resp BP Pulse Ox O2 Del Method 07/29/22 14:42 36.3 C L 94 H 15 105/66 97 Room Air 07/29/22 14:10 36.3 C L 69 18 127/77 98 Room Air 07/29/22 13:38 36.4 C L 86 16 145/78 H 97 Room Air 07/29/22 13:20 36.6 C 81 16 140/68 97 Room Air 07/29/22 13:10 74 16 155/80 H 100 Oxymask 07/29/22 13:00 88 18 149/74 H 100 Oxymask 07/29/22 12:53 36.4 C L 90 16 164/76 H 100 Oxymask 07/29/22 08:38 Room Air O2 Flow Rate 07/29/22 14:42 07/29/22 14:10 07/29/22 13:38 07/29/22 13:20 07/29/22 13:10 6 07/29/22 13:00 6 07/29/22 12:53 9 07/29/22 08:38 Laboratory Results Preop lab work on 07/15/2022 revealed H&H 11.8 and 34.7, platelet 198, sodium 134, BUN 27, creatinine 1.17, TSH 4.6 with a free T4 of 1.84, negative urinalysis, SARS-CoV-2 negative Diagnostic Findings Lumbar Spine X-Ray 07/29/22 09:35 INTRAOPERATIVE RADIOGRAPHS CLINICAL HISTORY: Lumbar spinal fusion surgery. Fluoro time: 10 seconds Exposure: 3.90 mGy 522 spot fluoroscopic views of the lumbar spine are presented. There has been discectomy at L3-L4, L4-L5, and L5-S1 with laminectomy and posterior fusion from L3-S1. Interpedicular screws are present at all levels with the exception of L5. The orthopedic hardware appears intact. IMPRESSION: Intraoperative images from lumbar spinal fusion surgery as above. Electronically signed by: Ciaran Stephens M.D. 07/29/2022 1:53 PM Medications Administered Current Inpatient Medications Acetaminophen (Acetaminophen 500 Mg Tab) 1,000 mg PO PREOP OLGA Stop: 07/29/22 18:00 Last Admin: 07/29/22 08:29 Dose: 1,000 mg Acetaminophen (Acetaminophen 500 Mg Tab) 1,000 mg PO Q8H PRN PRN Reason: MILD Pain Scale 1,2,3 & Pre PT Stop: 08/28/22 13:45 Al Hydrox/Mg Hydrox/Simethicone (Aluminum/Magnesium Susp 30 Ml Udc) 30 ml PO Q6H PRN PRN Reason: Dyspepsia Stop: 08/28/22 13:45 Albuterol (Albuterol Hfa 8 Gm Inhaler) 2 puffs INH QID PRN PRN Reason: sob Stop: 08/28/22 13:45 Albuterol (Albut/Ipratrop 3mg/0.5mg Neb 3 Ml Vial) 3 ml INH Q4H PRN; Protocol PRN Reason: sob Stop: 08/28/22 13:45 Amitriptyline HCl (Amitriptyline Hcl 10 Mg Tab) 10 mg PO HS OLGA Stop: 08/28/22 20:59 Atropine Sulfate (Atropine Sulfate 0.1 Mg/Ml 10ml Syr) 0.5 mg IV Q1M PRN PRN Reason: PACU Use-HR<40 &/or Bradycardi Stop: 07/29/22 17:01 Bisacodyl (Bisacodyl 10 Mg Supp) 10 mg RI DAILY PRN PRN Reason: Constipation Stop: 08/28/22 13:45 Celecoxib (Celebrex 200 Mg Cap) 200 mg PO PREOP OLGA Stop: 07/29/22 18:00 Last Admin: 07/29/22 08:29 Dose: 200 mg Cyanocobalamin (Cyanocobalamin (B-12) 2,500 Mcg Tablet) 5,000 mcg SL QAM OLGA Stop: 08/29/22 08:59 Diphenhydramine HCl (Diphenhydramine Capsule 25 Mg Cap) 25 mg PO Q6H PRN PRN Reason: Allergic Rhinitis/Insomnia Stop: 08/28/22 13:45 Ephedrine Sulfate (Ephedrine Sulfate 50 Mg/Ml Amp) 5 mg IV Q5M PRN PRN Reason: PACU Use Only-SBP<90 mmHg Stop: 07/29/22 17:01 Famotidine (Famotidine 20 Mg Tab) 20 mg PO Q12H PRN PRN Reason: Dyspepsia Stop: 08/28/22 13:45 Fentanyl Citrate (Fentanyl Citrate Pf 100 Mcg/2 Ml Vial) 25 mcg IV Q5M PRN PRN Reason: PACU Use Only-Pain Stop: 07/29/22 17:01 Fluticasone/Vilanterol (Fluticasone/Vilanterol 100/25mcg 14 Puffs/Inhaler) 1 puffs INH DAILY OLGA Stop: 08/29/22 08:59 Gabapentin (Gabapentin 600 Mg Dose) 600 mg PO PREOP OLGA Stop: 07/29/22 18:00 Last Admin: 07/29/22 08:29 Dose: Not Given Gabapentin (Gabapentin 800 Mg Tab) 800 mg PO TID OLGA Stop: 08/28/22 13:59 Hydromorphone HCl (Hydromorphone Inj 0.5 Mg/0.5 Ml Syr) 0.5 mg IV Q3H PRN PRN Reason: MODERATE Pain (Scale 4,5,6) & Stop: 08/12/22 13:45 Hydromorphone HCl (Hydromorphone Inj 1 Mg/Ml Syringe) 1 mg IV Q3H PRN PRN Reason: SEVERE Pain (Scale 7,8,9,10) Stop: 08/12/22 13:45 Last Admin: 07/29/22 14:14 Dose: 1 mg Hydroxyzine HCl (Hydroxyzine Hcl 25 Mg Tab) 25 mg PO Q8H PRN PRN Reason: Anxiety Stop: 08/28/22 13:45 Lactated Ringer's (Lr) 1,000 mls @ 15 mls/hr IV .Q24H OLGA Stop: 07/30/22 05:59 Last Infusion: 07/29/22 10:53 Dose: Infused Cefazolin Sodium (Ancef 2000mg) 2,000 mg in 15 mls @ 3.75 mls/min IV PREOP OLGA; Protocol Stop: 07/29/22 18:00 Last Admin: 07/29/22 10:53 Dose: 3.75 mls/min Lactated Ringer's (Lr) 1,000 mls @ 100 mls/hr IV .Q10H OLGA Stop: 08/28/22 13:45 Last Admin: 07/29/22 14:14 Dose: 100 mls/hr Promethazine HCl 12.5 mg/ (Sodium Chloride) 50.5 mls @ 202 mls/hr IV Q6H PRN PRN Reason: Nausea &/or Vomiting Stop: 08/28/22 13:45 Acetaminophen (Ofirmev) 1,000 mg in 100 mls @ 400 mls/hr IV Q8H PRN PRN Reason: Pain Rating 1-3 & Pre PT Stop: 07/30/22 13:46 Cefazolin Sodium (Ancef 1000mg) 1,000 mg in 7.5 mls @ 2.5 mls/min IV Q8H OLGA; Protocol Stop: 07/30/22 02:02 Dexamethasone 6 mg/ Syringe 1.5 mls @ 1 mls/min IV DAILY OLGA Stop: 08/01/22 09:02 Influenza Virus Vaccine Quadrival (Do Not Administer Flu Vaccine) 1 each N/A PRN PRN PRN Reason: Notification Stop: 08/28/22 13:45 Lisinopril (Lisinopril 20 Mg Tab) 20 mg PO QAM [facility] Stop: 08/29/22 08:59 Loratadine (Loratadine 10 Mg Tab) 10 mg PO QAM [facility] Stop: 08/29/22 08:59 Lorazepam (Lorazepam 0.5 Mg Tab) 0.5 mg PO Q8H PRN PRN Reason: Sedation/Anxiety Stop: 08/28/22 13:45 Lorazepam (Lorazepam 2 Mg/1 Ml Vial) 0.5 mg IV Q8H PRN PRN Reason: Sedation/Anxiety Stop: 08/28/22 13:45 Magnesium Hydroxide (Magnesium Hydroxide Susp 30 Ml Udc) 30 ml PO Q24H PRN PRN Reason: Constipation Stop: 08/28/22 13:45 Metoclopramide HCl (Metoclopramide Hcl Inj 5 Mg/Ml 2 Ml Vial) 10 mg IV Q6H PRN PRN Reason: Nausea &/or Vomiting Stop: 08/28/22 13:45 Montelukast Sodium (Montelukast Sodium 10 Mg Tablet) 10 mg PO HS [facility] Stop: 08/28/22 20:59 Naloxone HCl (Naloxone Hcl 0.4 Mg/1 Ml Vial/Carp) 0.1 mg IV Q5M PRN PRN Reason: Oversedation/Resp depression Stop: 08/28/22 13:45 Ondansetron HCl (Ondansetron Inj 2 Mg/Ml 2 Ml Vial) 4 mg IV ONCE PRN PRN Reason: PACU Use Only-Nausea/Vomiting Stop: 07/29/22 17:01 Ondansetron HCl (Ondansetron Inj 2 Mg/Ml 2 Ml Vial) 4 mg IV Q6H PRN PRN Reason: Nausea &/or Vomiting Stop: 08/28/22 13:45 Ondansetron HCl (Ondansetron 4 Mg Od Tab) 4 mg PO Q6H PRN PRN Reason: Nausea Stop: 08/28/22 13:45 Oxycodone HCl (Oxycodone Hcl Ir 5 Mg Tab (Immediate Release)) 5 - 10 mg PO Q4H PRN PRN Reason: Pain & Pre PT Stop: 08/12/22 13:45 Pantoprazole Sodium (Pantoprazole 40 Mg Tab) 40 mg PO QAM [facility] Stop: 08/29/22 08:59 Perphenazine (Perphenazine 2 Mg Tablet) 2 mg PO HS [facility] Stop: 08/28/22 20:59 Pneumococcal Polyvalent Vaccine (Do Not Administer Pneumococcal Vaccine) 1 each N/A PRN PRN PRN Reason: Notification Stop: 08/28/22 13:45 Polyethylene Glycol (Polyethylene (Miralax) 17 Gm Pack) 17 gm PO Q6 [facility] Stop: 08/29/22 05:59 Senna/Docusate Sodium (Docusate Sodium/Senna 50/8.6mg Tab) 2 tab PO HS [facility] Stop: 08/28/22 20:59 Sertraline HCl (Sertraline Hcl 100 Mg Tablet) 100 mg PO HS [facility] Stop: 08/28/22 20:59 Sodium Biphosphate/Sodium Phosphate (Sod Phosphate/Sod Biphosphate Enema 132 Ml Btl) 132 ml RI ONE PRN PRN Reason: Constipation Stop: 08/28/22 13:45 Tramadol HCl (Tramadol Hcl 50 Mg Tablet) 50 - 100 mg PO Q4H PRN PRN Reason: Moderate-Severe pain & Pre PT Stop: 08/28/22 13:45 Vitamin D (Cholecalciferol 5,000 Units 125 Mcg Tab) 5,000 units PO QAM [facility] Stop: 08/29/22 08:59 Vitamin D (Cholecalciferol 1,000 Units 25 Mcg Tab) 1,000 units PO QAM [facility] Stop: 08/29/22 08:59 ECG Additional Comments: EKG performed on 07/15/2022 revealed ventricular rate of 70 bpm, normal sinus rhythm, QTc 453 ms, no ST or T wave changes, rreviewed by me
[2022-07-29] MEDS: GABAPENTIN 800 MG TAB PO SCH ×2 (15:32→20:47)
[2022-07-29] MEDS: oxyCODONE HCL IR 5 MG TAB (IMMEDIATE RELEASE) PO PRN ×2 (15:39→19:49)
[2022-07-29] MEDS: ceFAZolin 1000MG 1,000 MG/7.5 ML SYR IV SCH (17:55)
[2022-07-29] MEDS: PERPHENAZINE 2 MG TABLET PO SCH (19:50)
[2022-07-29] MEDS: SERTRALINE HCL 100 MG TABLET PO SCH (19:50)
[2022-07-29] MEDS: MONTELUKAST SODIUM 10 MG TABLET PO SCH (19:51)
[2022-07-29] MEDS: AMITRIPTYLINE HCL 10 MG TAB PO SCH (19:54)
[2022-07-29] MEDS: DOCUSATE SODIUM/SENNA 50/8.6MG TAB PO SCH (19:54)
[2022-07-29] MEDS: HYDROmorphone INJ 0.5 MG/0.5 ML SYR IV PRN (22:58)
[2022-07-30] MEDS: ceFAZolin 1000MG 1,000 MG/7.5 ML SYR IV SCH (03:21)
[2022-07-30] MEDS: oxyCODONE HCL IR 5 MG TAB (IMMEDIATE RELEASE) PO PRN ×4 (03:21→20:18)
[2022-07-30] MEDS: POLYETHYLENE (MIRALAX) 17 GM PACK PO SCH ×3 (05:29→17:49)
[2022-07-30 06:12] LABS: Basophils # (auto) 0.02 K/uL (0-0.2); Basophils % (auto) 0.4 %; Eosinophils # (auto) 0.01 K/uL (0-0.50); Eosinophils % (auto) 0.2 %; Hematocrit (blood only) 24.7 % (37.0-47.0); Hemoglobin 8.3 g/dl (12.0-16.0); Immature Granulocytes # (auto) 0.02 K/uL (0.01-0.20); Immature Granulocytes % (auto) 0.4 %; Lymphocytes # (auto) 1.23 K/uL (1.2-3.4); Lymphocytes % (auto) 25.6 %; Mean Corpuscular Hgb Conc 33.6 g/dL (32.0-36.0); Mean Corpuscular Volume 92.2 fL (80.0-100.0); Monocytes # (auto) 0.43 K/uL (0.11-0.59); Neutrophils # (auto) 3.09 K/uL (1.40-6.50); Neutrophils % (auto) 64.4 %; Platelet Count 130 K/uL (130-400); RDW Coefficient of Variation 13.1 % (11.5-14.5); Red Blood Count 2.68 M/uL (4.20-5.40)
[2022-07-30] MEDS: HYDROmorphone INJ 0.5 MG/0.5 ML SYR IV PRN ×2 (06:13→09:45)
[2022-07-30 06:27] LABS: BUN Creatinine Ratio 13.6 (10-20); Calcium 8.2 mg/dl (8.6-10.3); Creatinine Clr Calc Pharmacy 40.6 ml/min; Est GFR (African American) 58.5 ml/min; Est GFR (Non-African American) 50.4 ml/min; Potassium 3.8 mmol/L (3.5-5.1)
--- NOTE | 2022-07-30 07:27 | Hospitalist Progress Note ---
Date of Service July 30, 2022 Assessment & Plan (1) Neurogenic claudication due to lumbar spinal stenosis: (2) HTN (hypertension): (3) HLD (hyperlipidemia): (4) Fibromyalgia: (5) Depression: (6) Alcohol ingestion, more than 4 drinks/day: (7) COPD (chronic obstructive pulmonary disease): Plan This is a 61-year-old female who has significant past medical history of COPD, former tobacco abuse, alcohol abuse, COPD, fibromyalgia, depression, history of migraines, HTN, HLD who presents for elective lumbar procedure by Dr. West. Neurogenic claudication due to lumbar spinal stenosis status post lumbar decompression fusion L3-S1 by Dr. West, POD #1 Tolerated procedure well Pain/wound management per orthopedics Activity and therapy as prescribed by orthopedic Encourage incentive spirometry Monitor hemoglobin, preop 11.8 Acute blood loss anemia, post-op and likely also dilutional Pre -op Hgb 11.8, current hgb8.3 Expected, no need for blood transfusion at this time Monitor H&H COPD No acute exacerbation Continue inhalers Hypertension Blood pressure on the lower side, will hold lisinopril Hyperlipidemia Continue statin Alcohol abuse Patient drinks 6 light beers daily During last hospitalization did not experience withdrawal symptoms AWSS protocol, prn ativan thiamine and folic acid supplementation Depression w/ anxiety fibromyalgia Hx of migraines continue home meds DVT ppx: per primary Dispo: per primary PCP: Erwin Cerda FULL CODE Thank you for this consultation. We will follow the patient with you during their hospital stay. You can reach a member of the [facility] Hospitalist Team 23/11 via hospitalist role on tiger text. Admission and Anticipated Discharge Date Admission Date: July 29, 2022 Subjective Pt seen in follow up of med consult for s/p spinal surgery Currently sitting up in bed in NAD No fevers chills chest pain shortness of breath. Has some soreness in her back, but otherwise has no complaints. No abdominal pain, no nausea vomiting Still has Simental catheter placed. She is anxious to start PT Review of Systems Review of Systems: All systems reviewed & are unremarkable except as noted in Subjective Physical Exam Constitutional: GENERAL: WD/WN F in NAD. HEENT: NC/AT. EOMI. Oral mucosa moist. NECK: No JVD, no neck masses. HEART: S1 and S2 heard. Regular rate and rhythm. No murmur, no gallop. RESPIRATORY: Normal AP diameter. No accessory muscle use. No wheezing, no crackles. ABDOMEN: Soft, bowel sounds present, nontender, no distention. NEURO: Alert and oriented x3. Speech fluent, no facial asymmetry, moves extremities EXTREMITIES: No edema, no erythema seen. Distal NV status WNL. Lower back w/ clean dressing. [place] drain w/ serosanguineous collection noted. : UC w/ yellow urine collection noted Results & Data Results & Data Vital Signs (Past 12 Hours) Vital Signs Temp Pulse Resp BP BP Pulse Ox O2 Del Method 07/30/22 07:13 36.9 C 104 H 16 95/56 L 96/58 L 95 Room Air 07/30/22 02:55 36.7 C 68 16 108/60 96 Nasal Cannula 07/29/22 22:51 36.5 C 91 H 18 96/63 L 96 Room Air 07/29/22 19:37 102 H 18 103/67 97 Room Air Laboratory Results 07/30/22 07/30/22 07/29/22 Range/Units 05:51 05:51 Unknown WBC 4.80 (4.8-10.8) K/ul RBC 2.68 L (4.20-5.40) M/uL Hgb 8.3 L (12.0-16.0) g/dl Hct 24.7 L (37.0-47.0) % MCV 92.2 (80.0-100.0) fL MCH 31.0 (25.0-34.0) pg MCHC 33.6 (32.0-36.0) g/dL RDW Std Deviation 44.0 (36.4-46.3) fL RDW Coeff of Nitish 13.1 (11.5-14.5) % Plt Count 130 (130-400) K/uL MPV 9.0 L (9.4-12.4) fL Immature Gran % (Auto) 0.4 % Neut % (Auto) 64.4 % Lymph % (Auto) 25.6 % [place] % (Auto) 9.0 % Eos % (Auto) 0.2 % Baso % (Auto) 0.4 % Neut # (Auto) 3.09 (1.40-6.50) K/uL Lymph # (Auto) 1.23 (1.2-3.4) K/uL [place] # (Auto) 0.43 (0.11-0.59) K/uL Eos # (Auto) 0.01 (0-0.50) K/uL Baso # (Auto) 0.02 (0-0.2) K/uL Immature Gran # (Auto) 0.02 (0.01-0.20) K/uL Sodium 136 (136-145) mmol/L Potassium 3.8 (3.5-5.1) mmol/L Chloride 101 (98-107) mmol/L Carbon Dioxide 29 (21-32) mmol/L Anion Gap 6 (3-11) BUN 16 (6-23) mg/dl Creatinine 1.18 (0.6-1.2) mg/dl Est Cr Clr Drug Dosing 40.6 ml/min Est GFR ( Amer) 58.5 ml/min Est GFR (Non-Af Amer) 50.4 ml/min BUN/Creatinine Ratio 13.6 (10-20) Glucose 112 H (70-99(Fasting)) mg/dl Calcium 8.2 L (8.6-10.3) mg/dl SARS-CoV-2, RNA, NAAT NEGATIVE (NEGATIVE) Blood Type Antibody Screen Crossmatch 07/29/22 Range/Units 08:09 WBC (4.8-10.8) K/ul RBC (4.20-5.40) M/uL Hgb (12.0-16.0) g/dl Hct (37.0-47.0) % MCV (80.0-100.0) fL MCH (25.0-34.0) pg MCHC (32.0-36.0) g/dL RDW Std Deviation (36.4-46.3) fL RDW Coeff of Nitish (11.5-14.5) % Plt Count (130-400) K/uL MPV (9.4-12.4) fL Immature Gran % (Auto) % Neut % (Auto) % Lymph % (Auto) % [place] % (Auto) % Eos % (Auto) % Baso % (Auto) % Neut # (Auto) (1.40-6.50) K/uL Lymph # (Auto) (1.2-3.4) K/uL [place] # (Auto) (0.11-0.59) K/uL Eos # (Auto) (0-0.50) K/uL Baso # (Auto) (0-0.2) K/uL Immature Gran # (Auto) (0.01-0.20) K/uL Sodium (136-145) mmol/L Potassium (3.5-5.1) mmol/L Chloride (98-107) mmol/L Carbon Dioxide (21-32) mmol/L Anion Gap (3-11) BUN (6-23) mg/dl Creatinine (0.6-1.2) mg/dl Est Cr Clr Drug Dosing ml/min Est GFR ( Amer) ml/min Est GFR (Non-Af Amer) ml/min BUN/Creatinine Ratio (10-20) Glucose (70-99(Fasting)) mg/dl Calcium (8.6-10.3) mg/dl SARS-CoV-2, RNA, NAAT (NEGATIVE) Blood Type A Negative Antibody Screen NEGATIVE Crossmatch See Detail Medications Administered Current Inpatient Medications Acetaminophen (Acetaminophen 500 Mg Tab) 1,000 mg PO Q8H PRN PRN Reason: MILD Pain Scale 1,2,3 & Pre PT Stop: 08/28/22 13:45 Al Hydrox/Mg Hydrox/Simethicone (Aluminum/Magnesium Susp 30 Ml Udc) 30 ml PO Q6H PRN PRN Reason: Dyspepsia Stop: 08/28/22 13:45 Last Admin: 07/29/22 20:47 Dose: 30 ml Albuterol (Albuterol Hfa 8 Gm Inhaler) 2 puffs INH QID PRN PRN Reason: sob Stop: 08/28/22 13:45 Albuterol (Albut/Ipratrop 3mg/0.5mg Neb 3 Ml Vial) 3 ml INH Q4H PRN; Protocol PRN Reason: sob Stop: 08/28/22 13:45 Amitriptyline HCl (Amitriptyline Hcl 10 Mg Tab) 10 mg PO HS [facility] Stop: 08/28/22 20:59 Last Admin: 07/29/22 19:54 Dose: 10 mg Bisacodyl (Bisacodyl 10 Mg Supp) 10 mg MD DAILY PRN PRN Reason: Constipation Stop: 08/28/22 13:45 Cyanocobalamin (Cyanocobalamin (B-12) 2,500 Mcg Tablet) 5,000 mcg SL QAM [facility] Stop: 08/29/22 08:59 Last Admin: 07/30/22 09:10 Dose: 5,000 mcg Diphenhydramine HCl (Diphenhydramine Capsule 25 Mg Cap) 25 mg PO Q6H PRN PRN Reason: Allergic Rhinitis/Insomnia Stop: 08/28/22 13:45 Famotidine (Famotidine 20 Mg Tab) 20 mg PO Q12H PRN PRN Reason: Dyspepsia Stop: 08/28/22 13:45 Fluticasone/Vilanterol (Fluticasone/Vilanterol 100/25mcg 14 Puffs/Inhaler) 1 puffs INH DAILY [facility] Stop: 08/29/22 08:59 Last Admin: 07/30/22 09:07 Dose: Not Given Folic Acid (Folic Acid 1 Mg Tab) 1 mg PO QAM [facility] Stop: 08/29/22 08:59 Last Admin: 07/30/22 09:08 Dose: 1 mg Gabapentin (Gabapentin 800 Mg Tab) 800 mg PO TID [facility] Stop: 08/28/22 13:59 Last Admin: 07/30/22 10:08 Dose: 800 mg Hydromorphone HCl (Hydromorphone Inj 0.5 Mg/0.5 Ml Syr) 0.5 mg IV Q3H PRN PRN Reason: MODERATE Pain (Scale 4,5,6) & Stop: 08/12/22 13:45 Last Admin: 07/30/22 09:45 Dose: 0.5 mg Hydromorphone HCl (Hydromorphone Inj 1 Mg/Ml Syringe) 1 mg IV Q3H PRN PRN Reason: SEVERE Pain (Scale 7,8,9,10) Stop: 08/12/22 13:45 Last Admin: 07/29/22 18:20 Dose: 1 mg Hydroxyzine HCl (Hydroxyzine Hcl 25 Mg Tab) 25 mg PO Q8H PRN PRN Reason: Anxiety Stop: 08/28/22 13:45 Promethazine HCl 12.5 mg/ (Sodium Chloride) 50.5 mls @ 202 mls/hr IV Q6H PRN PRN Reason: Nausea &/or Vomiting Stop: 08/28/22 13:45 Dexamethasone 6 mg/ Syringe 1.5 mls @ 1 mls/min IV DAILY [facility] Stop: 08/01/22 09:02 Last Admin: 07/30/22 09:06 Dose: 1 mls/min Sodium Chloride (Nss 1000ml) 1,000 mls @ 80 mls/hr IV .[id number] [facility] Stop: 08/29/22 07:44 Last Admin: 07/30/22 08:13 Dose: 80 mls/hr Influenza Virus Vaccine Quadrival (Do Not Administer Flu Vaccine) 1 each N/A PRN PRN PRN Reason: Notification Stop: 08/28/22 13:45 Lisinopril (Lisinopril 20 Mg Tab) 20 mg PO QAM [facility] Stop: 08/29/22 08:59 Loratadine (Loratadine 10 Mg Tab) 10 mg PO QAM [facility] Stop: 08/29/22 08:59 Last Admin: 07/30/22 09:08 Dose: 10 mg Lorazepam (Lorazepam 0.5 Mg Tab) 0.5 mg PO Q8H PRN PRN Reason: Sedation/Anxiety Stop: 08/28/22 13:45 Last Admin: 07/29/22 20:46 Dose: 0.5 mg Lorazepam (Lorazepam 2 Mg/1 Ml Vial) 0.5 mg IV Q8H PRN PRN Reason: Sedation/Anxiety Stop: 08/28/22 13:45 Lorazepam (Lorazepam 1 Mg Tab) 1 mg PO ONE PRN; Protocol PRN Reason: EtoH Withdrawal AWSS 6,7,8,9,10 Magnesium Hydroxide (Magnesium Hydroxide Susp 30 Ml Udc) 30 ml PO Q24H PRN PRN Reason: Constipation Stop: 08/28/22 13:45 Last Admin: 07/30/22 09:45 Dose: 30 ml Metoclopramide HCl (Metoclopramide Hcl Inj 5 Mg/Ml 2 Ml Vial) 10 mg IV Q6H PRN PRN Reason: Nausea &/or Vomiting Stop: 08/28/22 13:45 Montelukast Sodium (Montelukast Sodium 10 Mg Tablet) 10 mg PO HS [facility] Stop: 08/28/22 20:59 Last Admin: 07/29/22 19:51 Dose: 10 mg Naloxone HCl (Naloxone Hcl 0.4 Mg/1 Ml Vial/Carp) 0.1 mg IV Q5M PRN PRN Reason: Oversedation/Resp depression Stop: 08/28/22 13:45 Ondansetron HCl (Ondansetron Inj 2 Mg/Ml 2 Ml Vial) 4 mg IV Q6H PRN PRN Reason: Nausea &/or Vomiting Stop: 08/28/22 13:45 Ondansetron HCl (Ondansetron 4 Mg Od Tab) 4 mg PO Q6H PRN PRN Reason: Nausea Stop: 08/28/22 13:45 Oxycodone HCl (Oxycodone Hcl Ir 5 Mg Tab (Immediate Release)) 5 - 10 mg PO Q4H PRN PRN Reason: Pain & Pre PT Stop: 08/12/22 13:45 Last Admin: 07/30/22 08:18 Dose: 10 mg Pantoprazole Sodium (Pantoprazole 40 Mg Tab) 40 mg PO QAM [facility] Stop: 08/29/22 08:59 Last Admin: 07/30/22 09:09 Dose: 40 mg Perphenazine (Perphenazine 2 Mg Tablet) 2 mg PO HS [facility] Stop: 08/28/22 20:59 Last Admin: 07/29/22 19:50 Dose: 2 mg Pneumococcal Polyvalent Vaccine (Do Not Administer Pneumococcal Vaccine) 1 each N/A PRN PRN PRN Reason: Notification Stop: 08/28/22 13:45 Polyethylene Glycol (Polyethylene (Miralax) 17 Gm Pack) 17 gm PO Q6 [facility] Stop: 08/29/22 05:59 Last Admin: 07/30/22 11:54 Dose: 17 gm Senna/Docusate Sodium (Docusate Sodium/Senna 50/8.6mg Tab) 2 tab PO HS [facility] Stop: 08/28/22 20:59 Last Admin: 07/29/22 19:54 Dose: 2 tab Sertraline HCl (Sertraline Hcl 100 Mg Tablet) 100 mg PO HS [facility] Stop: 08/28/22 20:59 Last Admin: 07/29/22 19:50 Dose: 100 mg Sodium Biphosphate/Sodium Phosphate (Sod Phosphate/Sod Biphosphate Enema 132 Ml Btl) 132 ml MD ONE PRN PRN Reason: Constipation Stop: 08/28/22 13:45 Thiamine HCl (Thiamine Hcl 100 Mg Tab) 100 mg PO QAM [facility] Stop: 08/29/22 08:59 Last Admin: 07/30/22 09:08 Dose: 100 mg Vitamin D (Cholecalciferol 5,000 Units 125 Mcg Tab) [facility] Stop: 08/29/22 08:59 Last Admin: 07/30/22 09:05 Dose: 5,000 units Vitamin D (Cholecalciferol 1,000 Units 25 Mcg Tab) 1,000 units PO [facility] Stop: 08/29/22 08:59 Last Admin: 07/30/22 10:09 Dose: 1,000 units
[2022-07-30] MEDS: SODIUM CHLORIDE 0.9% 1000ML 1,000 ML IV SCH ×2 (08:13→20:23)
--- NOTE | 2022-07-30 08:22 | Orthopedic Progress Note ---
Date of Service July 30, 2022 Assessment & Plan (1) Neurogenic claudication due to lumbar spinal stenosis: Plan: At this point we will initiate physical therapy monitor her vital signs and H&H. If she continues to progress would hopefully discharge home in next few days. Admission and Anticipated Discharge Date Admission Date: July 29, 2022 Subjective Back pain controlled leg pain improving. She is denying any shortness of breath or lightheadedness this morning. Physical Exam Physical Exam: Patient is currently in bed. She is good strength testing. Results & Data Vital Signs (Past 12 Hours) Vital Signs Temp Pulse Resp BP BP Pulse Ox O2 Del Method 07/30/22 07:43 97 H 95/58 L 97 Room Air 07/30/22 07:13 36.9 C 104 H 16 95/56 L 96/58 L 95 Room Air 07/30/22 02:55 36.7 C 68 16 108/60 96 Nasal Cannula 07/29/22 22:51 36.5 C 91 H 18 96/63 L 96 Room Air
[2022-07-30] MEDS ORDERED: lisinopril 20 MG TAB PO SCH (09:00)
[2022-07-30] MEDS: CHOLECALCIFEROL 5,000 UNITS 125 MCG TAB PO SCH (09:05)
[2022-07-30] MEDS: dexAMETHasone 6 MG in SYRINGE 0 ML IV SCH (09:06)
[2022-07-30] MEDS: FLUTICASONE/VILANTEROL 100/25MCG 14 PUFFS/INHALER INH SCH (09:07)
[2022-07-30] MEDS: FOLIC ACID 1 MG TAB PO SCH (09:08)
[2022-07-30] MEDS: THIAMINE HCL 100 MG TAB PO SCH (09:08)
[2022-07-30] MEDS: LORATADINE 10 MG TAB PO SCH (09:08)
[2022-07-30] MEDS: PANTOprazole 40 MG TAB PO SCH (09:09)
[2022-07-30] MEDS: CYANOCOBALAMIN (B-12) 2,500 MCG TABLET SL SCH (09:10)
[2022-07-30] MEDS: GABAPENTIN 800 MG TAB PO SCH ×3 (10:08→20:19)
[2022-07-30] MEDS: CHOLECALCIFEROL 1,000 UNITS 25 MCG TAB PO SCH (10:09)
[2022-07-30] MEDS: AMITRIPTYLINE HCL 10 MG TAB PO SCH (20:19)
[2022-07-30] MEDS: DOCUSATE SODIUM/SENNA 50/8.6MG TAB PO SCH (20:20)
[2022-07-30] MEDS: MONTELUKAST SODIUM 10 MG TABLET PO SCH (20:20)
[2022-07-30] MEDS: SERTRALINE HCL 100 MG TABLET PO SCH (20:21)
[2022-07-30] MEDS: PERPHENAZINE 2 MG TABLET PO SCH (20:21)
[2022-07-31] MEDS: oxyCODONE HCL IR 5 MG TAB (IMMEDIATE RELEASE) PO PRN ×3 (05:49→12:50)
[2022-07-31] MEDS: SODIUM CHLORIDE 0.9% 1000ML 1,000 ML IV SCH (07:48)
--- NOTE | 2022-07-31 08:29 | Hospitalist Progress Note ---
Date of Service July 31, 2022 Assessment & Plan (1) Neurogenic claudication due to lumbar spinal stenosis: (2) HTN (hypertension): (3) HLD (hyperlipidemia): (4) Fibromyalgia: (5) Depression: (6) Alcohol ingestion, more than 4 drinks/day: (7) COPD (chronic obstructive pulmonary disease): Plan This is a 61-year-old female who has significant past medical history of COPD, former tobacco abuse, alcohol abuse, COPD, fibromyalgia, depression, history of migraines, HTN, HLD who presents for elective lumbar procedure by Dr. West. Neurogenic claudication due to lumbar spinal stenosis status post lumbar decompression fusion L3-S1 by Dr. West, POD #2 Tolerated procedure well Pain/wound management per orthopedics Activity and therapy as prescribed by orthopedic Encourage incentive spirometry Monitor hemoglobin, preop 11.8 Acute blood loss anemia, post-op and likely also dilutional Pre -op Hgb 11.8, current hgb 8.5 Expected, no need for blood transfusion at this time Monitor H&H COPD No acute exacerbation Continue inhalers Hypertension Blood pressure on the lower side now normal, will stop IVF plan to resume lisinopril Hyperlipidemia Continue statin Alcohol abuse Patient drinks 6 light beers daily During last hospitalization did not experience withdrawal symptoms AWSS protocol, prn ativan thiamine and folic acid supplementation Depression w/ anxiety fibromyalgia Hx of migraines continue home meds DVT ppx: per primary Dispo: per primary PCP: Erwin Cerda FULL CODE Thank you for this consultation. We will follow the patient with you during their hospital stay. You can reach a member of the [facility] Hospitalist Team 23/11 via hospitalist role on tiger text. Admission and Anticipated Discharge Date Admission Date: July 29, 2022 Subjective Pt seen in follow up of med consult for s/p spinal surgery Currently sitting up in bed in NAD No fevers chills chest pain shortness of breath. Has some soreness in her back, but otherwise has no complaints. No abdominal pain, no nausea vomiting Simental removed. She is having BMs, and voiding w/o difficulty Ambulated in hallway Review of Systems Review of Systems: All systems reviewed & are unremarkable except as noted in Subjective Physical Exam Physical Exam: GENERAL: WD/WN F in NAD. HEENT: NC/AT. EOMI. Oral mucosa moist. NECK: No JVD, no neck masses. HEART: S1 and S2 heard. Regular rate and rhythm. No murmur, no gallop. RESPIRATORY: Normal AP diameter. No accessory muscle use. No wheezing, no crackles. ABDOMEN: Soft, bowel sounds present, nontender, no distention. NEURO: Alert and oriented x3. Speech fluent, no facial asymmetry, moves extremities EXTREMITIES: No edema, no erythema seen. Distal NV status WNL. Lower back w/ clean dressing. [place] drain w/ serosanguineous collection noted. Results & Data Results & Data Vital Signs (Past 12 Hours) Vital Signs Temp Pulse Pulse Resp BP Pulse Ox O2 Del Method 07/31/22 07:53 36.7 C 99 H 18 148/78 H 99 Room Air 07/31/22 07:46 36.7 C 94 H 18 132/81 100 Room Air 07/30/22 21:30 36.6 C 103 H 18 115/67 95 Room Air Laboratory Results 07/31/22 07/31/22 Range/Units 08:51 08:51 WBC 6.74 (4.8-10.8) K/ul RBC 2.75 L (4.20-5.40) M/uL Hgb 8.5 L (12.0-16.0) g/dl Hct 25.9 L (37.0-47.0) % MCV 94.2 (80.0-100.0) fL MCH 30.9 (25.0-34.0) pg MCHC 32.8 (32.0-36.0) g/dL RDW Std Deviation 45.4 (36.4-46.3) fL RDW Coeff of Nitish 13.2 (11.5-14.5) % Plt Count 171 (130-400) K/uL MPV 9.4 (9.4-12.4) fL Sodium 137 (136-145) mmol/L Potassium 3.3 L (3.5-5.1) mmol/L Chloride 104 (98-107) mmol/L Carbon Dioxide 27 (21-32) mmol/L Anion Gap 6 (3-11) BUN 8 (6-23) mg/dl Creatinine 0.89 (0.6-1.2) mg/dl Est Cr Clr Drug Dosing 53.8 ml/min Est GFR ( Amer) 82.2 ml/min Est GFR (Non-Af Amer) 70.9 ml/min BUN/Creatinine Ratio 9.0 L (10-20) Glucose 118 H (70-99(Fasting)) mg/dl Calcium 8.4 L (8.6-10.3) mg/dl Medications Administered Current Inpatient Medications Acetaminophen (Acetaminophen 500 Mg Tab) 1,000 mg PO Q8H PRN PRN Reason: MILD Pain Scale 1,2,3 & Pre PT Stop: 08/28/22 13:45 Al Hydrox/Mg Hydrox/Simethicone (Aluminum/Magnesium Susp 30 Ml Udc) 30 ml PO Q6H PRN PRN Reason: Dyspepsia Stop: 08/28/22 13:45 Last Admin: 07/29/22 20:47 Dose: 30 ml Albuterol (Albuterol Hfa 8 Gm Inhaler) 2 puffs INH QID PRN PRN Reason: sob Stop: 08/28/22 13:45 Albuterol (Albut/Ipratrop 3mg/0.5mg Neb 3 Ml Vial) 3 ml INH Q4H PRN; Protocol PRN Reason: sob Stop: 08/28/22 13:45 Amitriptyline HCl (Amitriptyline Hcl 10 Mg Tab) 10 mg PO HS [facility] Stop: 08/28/22 20:59 Last Admin: 07/30/22 20:19 Dose: 10 mg Bisacodyl (Bisacodyl 10 Mg Supp) 10 mg [place] DAILY PRN PRN Reason: Constipation Stop: 08/28/22 13:45 Cyanocobalamin (Cyanocobalamin (B-12) 2,500 Mcg Tablet) 5,000 mcg SL QAM [facility] Stop: 08/29/22 08:59 Last Admin: 07/30/22 09:10 Dose: 5,000 mcg Diphenhydramine HCl (Diphenhydramine Capsule 25 Mg Cap) 25 mg PO Q6H PRN PRN Reason: Allergic Rhinitis/Insomnia Stop: 08/28/22 13:45 Famotidine (Famotidine 20 Mg Tab) 20 mg PO Q12H PRN PRN Reason: Dyspepsia Stop: 08/28/22 13:45 Fluticasone/Vilanterol (Fluticasone/Vilanterol 100/25mcg 14 Puffs/Inhaler) 1 puffs INH DAILY [facility] Stop: 08/29/22 08:59 Last Admin: 07/30/22 09:07 Dose: Not Given Folic Acid (Folic Acid 1 Mg Tab) 1 mg PO QAM [facility] Stop: 08/29/22 08:59 Last Admin: 07/30/22 09:08 Dose: 1 mg Gabapentin (Gabapentin 800 Mg Tab) 800 mg PO TID [facility] Stop: 08/28/22 13:59 Last Admin: 07/30/22 20:19 Dose: 800 mg Hydromorphone HCl (Hydromorphone Inj 0.5 Mg/0.5 Ml Syr) 0.5 mg IV Q3H PRN PRN Reason: MODERATE Pain (Scale 4,5,6) & Stop: 08/12/22 13:45 Last Admin: 07/30/22 09:45 Dose: 0.5 mg Hydromorphone HCl (Hydromorphone Inj 1 Mg/Ml Syringe) 1 mg IV Q3H PRN PRN Reason: SEVERE Pain (Scale 7,8,9,10) Stop: 08/12/22 13:45 Last Admin: 07/29/22 18:20 Dose: 1 mg Hydroxyzine HCl (Hydroxyzine Hcl 25 Mg Tab) 25 mg PO Q8H PRN PRN Reason: Anxiety Stop: 08/28/22 13:45 Promethazine HCl 12.5 mg/ (Sodium Chloride) 50.5 mls @ 202 mls/hr IV Q6H PRN PRN Reason: Nausea &/or Vomiting Stop: 08/28/22 13:45 Dexamethasone 6 mg/ Syringe 1.5 mls @ 1 mls/min IV DAILY [facility] Stop: 08/01/22 09:02 Last Admin: 07/30/22 09:06 Dose: 1 mls/min Sodium Chloride (Nss 1000ml) 1,000 mls @ 80 mls/hr IV .[id number] [facility] Stop: 08/29/22 07:44 Last Admin: 07/31/22 07:48 Dose: 80 mls/hr Influenza Virus Vaccine Quadrival (Do Not Administer Flu Vaccine) 1 each N/A PRN PRN PRN Reason: Notification Stop: 08/28/22 13:45 Lisinopril (Lisinopril 20 Mg Tab) [facility] Stop: 08/29/22 08:59 Loratadine (Loratadine 10 Mg Tab) 10 mg PO QAM [facility] Stop: 08/29/22 08:59 Last Admin: 07/30/22 09:08 Dose: 10 mg Lorazepam (Lorazepam 0.5 Mg Tab) 0.5 mg PO Q8H PRN PRN Reason: Sedation/Anxiety Stop: 08/28/22 13:45 Last Admin: 07/29/22 20:46 Dose: 0.5 mg Lorazepam (Lorazepam 2 Mg/1 Ml Vial) 0.5 mg IV Q8H PRN PRN Reason: Sedation/Anxiety Stop: 08/28/22 13:45 Lorazepam (Lorazepam 1 Mg Tab) 1 mg PO ONE PRN; Protocol PRN Reason: EtoH Withdrawal AWSS 6,7,8,9,10 Magnesium Hydroxide (Magnesium Hydroxide Susp 30 Ml Udc) 30 ml PO Q24H PRN PRN Reason: Constipation Stop: 08/28/22 13:45 Last Admin: 07/30/22 09:45 Dose: 30 ml Metoclopramide HCl (Metoclopramide Hcl Inj 5 Mg/Ml 2 Ml Vial) 10 mg IV Q6H PRN PRN Reason: Nausea &/or Vomiting Stop: 08/28/22 13:45 Montelukast Sodium (Montelukast Sodium 10 Mg Tablet) 10 mg PO HS [facility] Stop: 08/28/22 20:59 Last Admin: 07/30/22 20:20 Dose: 10 mg Naloxone HCl (Naloxone Hcl 0.4 Mg/1 Ml Vial/Carp) 0.1 mg IV Q5M PRN PRN Reason: Oversedation/Resp depression Stop: 08/28/22 13:45 Ondansetron HCl (Ondansetron Inj 2 Mg/Ml 2 Ml Vial) 4 mg IV Q6H PRN PRN Reason: Nausea &/or Vomiting Stop: 08/28/22 13:45 Ondansetron HCl (Ondansetron 4 Mg Od Tab) 4 mg PO Q6H PRN PRN Reason: Nausea Stop: 08/28/22 13:45 Oxycodone HCl (Oxycodone Hcl Ir 5 Mg Tab (Immediate Release)) 5 - 10 mg PO Q4H PRN PRN Reason: Pain & Pre PT Stop: 08/12/22 13:45 Last Admin: 07/31/22 05:49 Dose: 10 mg Pantoprazole Sodium (Pantoprazole 40 Mg Tab) 40 mg PO [facility] Stop: 08/29/22 08:59 Last Admin: 07/30/22 09:09 Dose: 40 mg Perphenazine (Perphenazine 2 Mg Tablet) 2 mg PO [facility] Stop: 08/28/22 20:59 Last Admin: 07/30/22 20:21 Dose: 2 mg Pneumococcal Polyvalent Vaccine (Do Not Administer Pneumococcal Vaccine) 1 each N/A PRN PRN PRN Reason: Notification Stop: 08/28/22 13:45 Senna/Docusate Sodium (Docusate Sodium/Senna 50/8.6mg Tab) 2 tab PO [facility] Stop: 08/28/22 20:59 Last Admin: 07/30/22 20:20 Dose: 2 tab Sertraline HCl (Sertraline Hcl 100 Mg Tablet) 100 mg PO [facility] Stop: 08/28/22 20:59 Last Admin: 07/30/22 20:21 Dose: 100 mg Sodium Biphosphate/Sodium Phosphate (Sod Phosphate/Sod Biphosphate Enema 132 Ml Btl) 132 ml [place] ONE PRN PRN Reason: Constipation Stop: 08/28/22 13:45 Thiamine HCl (Thiamine Hcl 100 Mg Tab) 100 mg PO [facility] Stop: 08/29/22 08:59 Last Admin: 07/30/22 09:08 Dose: 100 mg Vitamin D (Cholecalciferol 5,000 Units 125 Mcg Tab) 5,000 units PO [facility] Stop: 08/29/22 08:59 Last Admin: 07/30/22 09:05 Dose: 5,000 units Vitamin D (Cholecalciferol 1,000 Units 25 Mcg Tab) 1,000 units PO [facility] Stop: 08/29/22 08:59 Last Admin: 07/30/22 10:09 Dose: 1,000 units
[2022-07-31] MEDS: CHOLECALCIFEROL 1,000 UNITS 25 MCG TAB PO SCH (08:53)
[2022-07-31] MEDS: CYANOCOBALAMIN (B-12) 2,500 MCG TABLET SL SCH (08:54)
[2022-07-31] MEDS: CHOLECALCIFEROL 5,000 UNITS 125 MCG TAB PO SCH (08:54)
[2022-07-31] MEDS: FOLIC ACID 1 MG TAB PO SCH (08:55)
[2022-07-31] MEDS: LORATADINE 10 MG TAB PO SCH (08:55)
[2022-07-31] MEDS: GABAPENTIN 800 MG TAB PO SCH (08:55)
[2022-07-31] MEDS: PANTOprazole 40 MG TAB PO SCH (08:55)
[2022-07-31] MEDS: FLUTICASONE/VILANTEROL 100/25MCG 14 PUFFS/INHALER INH SCH (08:56)
[2022-07-31] MEDS: dexAMETHasone 6 MG in SYRINGE 0 ML IV SCH (08:56)
[2022-07-31] MEDS: THIAMINE HCL 100 MG TAB PO SCH (08:56)
[2022-07-31 09:47] LABS: Hematocrit (blood only) 25.9 % (37.0-47.0); Hemoglobin 8.5 g/dl (12.0-16.0); Mean Corpuscular Hemoglobin 30.9 pg (25.0-34.0); Mean Corpuscular Hgb Conc 32.8 g/dL (32.0-36.0); Mean Corpuscular Volume 94.2 fL (80.0-100.0); Mean Platelet Volume 9.4 fL (9.4-12.4); Platelet Count 171 K/uL (130-400); RDW Coefficient of Variation 13.2 % (11.5-14.5); RDW Standard Deviation 45.4 fL (36.4-46.3); Red Blood Count 2.75 M/uL (4.20-5.40); White Blood Count 6.74 K/ul (4.8-10.8)
[2022-07-31 10:03] LABS: Calcium 8.4 mg/dl (8.6-10.3); Creatinine Clr Calc Pharmacy 53.8 ml/min; Est GFR (African American) 82.2 ml/min; Est GFR (Non-African American) 70.9 ml/min; Potassium 3.3 mmol/L (3.5-5.1)
[2022-07-31] MEDS ORDERED: POTASSIUM CHLORIDE CRTAB 20 MEQ TABCR PO STA (10:20)
--- NOTE | 2022-07-31 10:28 | Discharge Summary ---
Date of Service July 31, 2022 Admission HPI Per Admitting Provider This is a 61-year-old female who presents with above-chronic persistent back and leg pain after failing course of nonoperative care she is here for surgical invention. Principal Diagnosis Lumbar spinal stenosis with neurogenic claudication Discharge Data Allergies Allergy/AdvReac Type Severity Reaction Status Date / Time nitrofurantoin Allergy Intermediate SOB Verified 07/29/22 08:15 sumatriptan [From Imitrex] AdvReac Intermediate neck pain Verified 07/29/22 08:15 Consultations 07/29/22 13:46 Consult Hospitalist Routine Procedures Performed Operation Date: 07/29/22 09:35 Actual Procedures p L3-L4 Decompression, L3-S1 Fusion, Spinal Cord Monitoring(Not Applicable) - Tomas West DO s L4-S1 Hardware Removal,(Not Applicable) - Tomas West DO Ordered Studies 07/29/22 09:35 [place] lumbar spine 2-3V Routine Hospital Course (1) Neurogenic claudication due to lumbar spinal stenosis: Patient underwent lumbar decompression fusion tolerated this well was taken to orthopedic for postop labor postop day 1 she was up and ambulating progressed to postop day #2. Pain well controlled production strength testing. ORLANOD drain decreasing appropriately. Subsequent discharge home. Discharge orders and instructions found in the chart for further review. Total Time Total Time Spent Total Time Spent (In Minutes): 20 minutes Discharge Plan Discharge Items Patient Disposition: Home - Self-Care Reason For Visit: Spinal Stenosis, Lumbar Region without Neurogenic Discharge Diagnosis: Lumbar spinal stenosis with neurogenic claudication Activity: As commented below Non-emergency contact: Primary Care Provider Call non-emergency contact if: you have any medication questions Follow-up/Referrals: Erwin Cerda D.O. [Primary Care Provider] - Diet: Regular Addtl Attending Provider Instructions: ACTIVITY RECOMMENDATIONS: SELF CARE INSTRUCTIONS AFTER THORACIC/LUMBAR FUSIONS 1. You may walk to your tolerance. It is good exercise for your legs and back. Expect some back and intermittent leg aches and pains. 2. You may perform "counter-top" level activities (make a sandwich, margaret with a project, etc.). 3. No bending or lifting of more than 10 pounds or back twisting of any nature (roll like a log when turning in bed). 4. You may ride in a car for 20-30 minutes at a time. No driving until after your first visit with your doctor. 5. Frequent changes of position and restricting sitting to 30 minutes at a time will help limit the amount of back spasms and stiffness you may experience. 6. You may discontinue the use of ambulatory aids (cane, crutches, etc.) once your strength and confidence allow. 7. You may tube closing machine operator the shower and let water strike your incision when you arrive home at least once daily. Do not take a tub bath, sit in a hot tub or go into a swimming pool until after your first recheck in the office. SPECIAL CARE INSTRUCTIONS: VERY IMPORTANT TO READ AND REVIEW A. Your surgical incision has been closed with a cosmetic suture under the skin that will dissolve in about 6 weeks. In 14 days, you can use a pair of clean scissors and cut the suture that is left outside of the skin at the ends of your incision. 1. The small skin tapes can be removed 7 days after surgery if they have not fallen off by that point. 2. You may keep the wound open to air as much as possible to promote healing after post-op day number 5 unless told otherwise by your doctor. 3. If you think the wound looks like it is becoming infected (redness or worsening drainage) and/or you are experiencing fever, chill or worsening back pain and muscle spasms, contact the office so that we may evaluate you as soon as possible. B. Complications are uncommon, but please contact us if you have any signs or symptoms of: 1. wound infection (fever higher than 102.5 degrees F, redness, separation of wound, drainage, or increasing pain from the incision) 2. blood clots in legs (pain, swelling, redness and warmth in legs) 3. urinary tract infection (fever higher than 102.5 degrees F, burning upon urination or increased frequency of urination) 4. nerve problems (inability to walk on your toes or heels, numbness, loss of bowel or bladder control) 5. any other symptoms that concern you C. Please call the office at if you have any concerns or questions about your operation or recovery. D. No smoking! Smoking drastically decreases the chance of a solid fusion. E. Do not take any anti-inflammatory medications (Indocin, Advil, Motrin, Aspirin, Naprosyn, etc.) as these may inhibit the chance of a solid fusion. Tylenol is okay to take for pain. MANAGING PAIN AFTER SPINAL SURGERY 1. Narcotic medication is intended for short-term use and will be provided for surgical pain. Surgical pain usually lasts for a period of 4-6 weeks. Narcotic medication includes Percocet, Vicodin, Darvocet, Tylenol #3 or Lortab. 2. Longer-term pain is more appropriately treated with non-narcotic medication such as Tylenol ES. 3. Muscle spasm is not appropriately treated with narcotics. Muscle relaxers such as Soma, Flexeril or Skelaxin can be used along with Tylenol ES. 4. Remember that we all live with some "aches and pains". This is not unusual or uncommon after an injury or as we get older. a. Back pain is expected and may include muscle spasms for 4 to 6 weeks after surgery. The pain should gradually improve. If the pain worsens for no apparent reason, please contact the office. b. Intermittent leg pain may also be experienced and should not be concerned about unless it worsens for no apparent reason. If so, please contact the office. 5. We will provide appropriate medication within the normal guidelines of their prescribed use. We will also be very cautious and aware of potential abuse and extended duration of patients' medication needs. a. Pain medications are for your comfort and to assist with sleep and rest so that the tissue can heal. They are not provided in order to return to normal activity and should not be used through the day. To do so or worsening pain at night can result from ongoing tissue damage and development of tolerance to the prescribed medicine. 6. Please allow 2-3 days to process refills. Prescriptions will not be mailed but must be picked up at the office. FOLLOW UP VISIT: Keep your scheduled follow-up appointment. Any questions, please call the office at . Pending Studies at Discharge: No Stand-Alone Forms: My [employer], Smoking Cessation Medications and [place] Order Prescriptions: New tramadol 50 mg tablet 50 mg PO Q6H PRN (Reason: pain, moderate) Qty: 30 0RF oxycodone-acetaminophen [Percocet] 5-325 mg tablet 1 tab PO Q6 Qty: 30 0RF Continued perphenazine 2 mg Tablet 2 mg PO HS ipratropium-albuterol 0.5 mg-3 mg(2.5 mg base)/3 mL Solution For Nebulization 3 ml INHALATION Q4H PRN (Reason: sob) meloxicam 15 mg Tablet 15 mg PO QAM lisinopril 20 mg Tablet 20 mg PO QAM sennosides-docusate sodium [Stool Softener-Laxative] 8.6-50 mg Tablet 1 tab-cap PO BID sertraline 100 mg Tablet 100 mg PO HS lorazepam 0.5 mg Tablet 0.5 mg PO Q8H PRN (Reason: Anxiety) amitriptyline 10 mg Tablet 10 mg PO HS pantoprazole [Protonix] 40 mg Tablet,Delayed Release (Dr/Ec) 40 mg PO QAM cyanocobalamin (vitamin B-12) [Vitamin B-12] 2,000 mcg Tablet Extended Release 6,000 mcg PO QAM Hair,Skin and Nails Tablet 2 tab PO QAM albuterol sulfate 90 mcg/actuation Hfa Aerosol Inhaler 2 puff INHALATION QID PRN (Reason: sob) loratadine 10 mg Tablet 10 mg PO QAM cholecalciferol (vitamin D3) [Vitamin D3] 25 mcg (1,000 unit) Capsule 25 mcg PO QAM fluticasone propion-salmeterol [Advair Diskus] 250-50 mcg/dose Blister With Device 1 inh INHALATION BID gabapentin 800 mg Tablet 800 mg PO TID montelukast [Singulair] 10 mg Tablet 10 mg PO HS oxycodone 5 mg tablet 10 mg PO Q6H PRN (Reason: pain, severe) ascorbic acid (vitamin C) [Vitamin C] 1,000 mg Tablet 1 g PO QAM Discharge Orders: Discharge Order (Routine); Ordered 07/31/22 Ordered By: Tomas West Admission Data Admit Date/Time: 07/29/22 12:40 Attending Provider: Tomas West Admit Provider: Tomas West Primary Care Provider: Erwin Cerda Other Providers: Ivana Zurita ; Subhash Devine
== END 2022-07-31 13:45 | disposition home or self-care (01) | DRG 454 ==
LOC: ASU 07:51 → 3E 12:40

== ENCOUNTER 2023-07-26 07:30 | Observation (INO) ==
--- NOTE | 2023-06-24 10:48 | PAT Medication Instructions ---
Medication Instructions Date of Service June 24, 2023 Home Medications albuterol sulfate 90 mcg/actuation aerosol inhaler 2 puff inhalation QID PRN sob amitriptyline 10 mg tablet 10 mg PO HS cholecalciferol (vitamin D3) 25 mcg (1,000 unit) capsule (Vitamin D3) 25 mcg PO QAM cyanocobalamin (vitamin B-12) 2,000 mcg tablet,extended release (Vitamin B-12 ER) 6,000 mcg PO QAM ipratropium 0.5 mg-albuterol 3 mg (2.5 mg base)/3 mL nebulization soln 3 ml inhalation Q4H PRN sob lisinopril 20 mg tablet 20 mg PO QAM loratadine 10 mg tablet 10 mg PO QAM lorazepam 0.5 mg tablet 0.5 mg PO Q8H PRN Anxiety meloxicam 15 mg tablet 15 mg PO QAM multivitamin with minerals (Hair,Skin and Nails tablet) 2 tab PO QAM pantoprazole 40 mg tablet,delayed release (Protonix) 40 mg PO QAM perphenazine 2 mg tablet 2 mg PO HS sennosides 8.6 mg-docusate sodium 50 mg tablet (Stool Softener-Laxative) 1 tab- cap PO BID sertraline 100 mg tablet 100 mg PO HS fluticasone 250 mcg-salmeterol 50 mcg/dose blistr powdr for inhalation (Advair Diskus) 1 inh inhalation BID gabapentin 800 mg tablet 800 mg PO TID oxycodone 5 mg tablet 10 mg PO Q6H PRN pain, severe MEDICATION INSTRUCTIONS: Continue as directed ipratropium 0.5 mg-albuterol 3 mg (2.5 mg base)/3 mL nebulization soln 3 ml inhalation Q4H PRN sob ASK your surgeon for instructions meloxicam 15 mg tablet 15 mg PO QAM DO NOT take the morning of surgery multivitamin with minerals (Hair,Skin and Nails tablet) 2 tab PO QAM lisinopril 20 mg tablet 20 mg PO QAM cholecalciferol (vitamin D3) 25 mcg (1,000 unit) capsule (Vitamin D3) 25 mcg PO QAM cyanocobalamin (vitamin B-12) 2,000 mcg tablet,extended release (Vitamin B-12 ER) 6,000 mcg PO QAM loratadine 10 mg tablet 10 mg PO QAM sennosides 8.6 mg-docusate sodium 50 mg tablet (Stool Softener-Laxative) 1 tab- cap PO BID Take morning of surgery With a small sip of water, OTHERWISE NOTHING TO EAT OR DRINK AFTER MIDNIGHT: albuterol sulfate 90 mcg/actuation aerosol inhaler 2 puff inhalation QID PRN sob (use if needed; BRING TO HOSPITAL) lorazepam 0.5 mg tablet 0.5 mg PO Q8H PRN Anxiety (if needed) fluticasone 250 mcg-salmeterol 50 mcg/dose blistr powdr for inhalation (Advair Diskus) 1 inh inhalation BID gabapentin 800 mg tablet 800 mg PO TID oxycodone 5 mg tablet 10 mg PO Q6H PRN pain, severe (if needed) pantoprazole 40 mg tablet,delayed release (Protonix) 40 mg PO QAM Take evening before surgery albuterol sulfate 90 mcg/actuation aerosol inhaler 2 puff inhalation QID PRN sob sertraline 100 mg tablet 100 mg PO HS perphenazine 2 mg tablet 2 mg PO HS amitriptyline 10 mg tablet 10 mg PO HS sennosides 8.6 mg-docusate sodium 50 mg tablet (Stool Softener-Laxative) 1 tab- cap PO BID lorazepam 0.5 mg tablet 0.5 mg PO Q8H PRN Anxiety fluticasone 250 mcg-salmeterol 50 mcg/dose blistr powdr for inhalation (Advair Diskus) 1 inh inhalation BID gabapentin 800 mg tablet 800 mg PO TID oxycodone 5 mg tablet 10 mg PO Q6H PRN pain, severe Other Notes If you have any questions please call us at [phone] or [phone] or [phone] or [phone]
--- NOTE | 2023-07-01 13:28 | Anesthesiology Consultation ---
Date of Service July 01, 2023 Assessment & Plan (1) Encounter for pre-operative examination: - PCP clearance advised per case discussion with Dr. Dejesus given albuterol inhaler and nebulizer use 1-2 times daily. Patient and verbalized understanding and agreement. Optimization form to be faxed to Dr. Cerda, PCP with PAT testing. Surgeon's office made aware. - heavy ETOH use: 6-8 beers daily. Chart Review Chart Review: Pending: Refer to Additional Notes / Consult section and Patient seen in Pre Admission Testing Teaching & Discussion Pre-Anesthesia Teaching/Discussion Notes: Instructed NPO after midnight before surgery, except medications with 15 cc of water. Medication instructions provided according to the PAT guidelines. History Surgery Operation Date: 07/26/23 07:15 Proposed Procedures p Right Total Knee Arthroplasty(Right) - Nash Fletcher DO Height/Weight Height: 5 ft 1.5 in Weight: 58.6 kg Allergies Allergy/AdvReac Type Severity Reaction Status Date / Time nitrofurantoin Allergy Intermediate SOB Verified 06/24/23 08:42 sumatriptan [From Imitrex] AdvReac Intermediate neck pain Verified 06/24/23 08:42 Medications Home Medications Medication Instructions Recorded Confirmed Last Taken albuterol sulfate 90 mcg/actuation 2 puff inhalation QID PRN sob 05/15/21 06/24/23 07/29/22 05:30 aerosol inhaler amitriptyline 10 mg tablet 10 mg PO HS 05/15/21 06/24/23 07/28/22 20:00 cholecalciferol (vitamin D3) 25 25 mcg PO QAM 05/15/21 06/24/23 07/11/22 mcg (1,000 unit) capsule (Vitamin D3) cyanocobalamin (vitamin B-12) 6,000 mcg PO QAM 05/15/21 06/24/23 07/11/22 2,000 mcg tablet,extended release (Vitamin B-12 ER) ipratropium 0.5 mg-albuterol 3 mg 3 ml inhalation Q4H PRN sob 05/15/21 06/24/23 07/11/22 (2.5 mg base)/3 mL nebulization soln lisinopril 20 mg tablet 20 mg PO QAM 05/15/21 06/24/23 07/28/22 08:00 loratadine 10 mg tablet 10 mg PO QAM 05/15/21 06/24/23 07/28/22 08:00 lorazepam 0.5 mg tablet 0.5 mg PO Q8H PRN Anxiety 05/15/21 06/24/23 07/29/22 05:30 meloxicam 15 mg tablet 15 mg PO QAM 05/15/21 06/24/23 07/11/22 multivitamin with minerals 2 tab PO QAM 05/15/21 06/24/23 07/11/22 (Hair,Skin and Nails tablet) pantoprazole 40 mg tablet,delayed 40 mg PO QAM 05/15/21 06/24/23 07/29/22 05:30 release (Protonix) perphenazine 2 mg tablet 2 mg PO HS 05/15/21 06/24/23 07/28/22 20:00 sennosides 8.6 mg-docusate sodium 1 tab-cap PO BID 05/15/21 06/24/23 07/28/22 20:00 50 mg tablet (Stool Softener-Laxative) sertraline 100 mg tablet 100 mg PO HS 05/15/21 06/24/23 07/28/22 20:00 fluticasone 250 mcg-salmeterol 50 1 inh inhalation BID 07/10/22 06/24/23 07/28/22 20:00 mcg/dose blistr powdr for inhalation (Advair Diskus) gabapentin 800 mg tablet 800 mg PO TID 07/10/22 06/24/23 07/29/22 05:30 oxycodone 5 mg tablet 10 mg PO Q6H PRN pain, severe 07/10/22 06/24/23 07/29/22 05:30 Past Medical History Medical History (Updated 07/01/23 @ 16:14 by Merlene Garcia PA-C) Anxiety Asthma stable per pt COPD (chronic obstructive pulmonary disease) stable per pt; reports daily 1-2 x rescue inhaler and nebulizer use DDD (degenerative disc disease) Depression Fibromyalgia Stable GERD (gastroesophageal reflux disease) Well controlled, stable Graves' disease in remission No meds- controlled off meds for several yrs-monitored by PCP per patient HLD (hyperlipidemia) HTN (hypertension) controlled, stable per pt Hx of hypoglycemia Monitors BSG at home Ischemic stroke Approximately 5 years ago, no deficits Migraines Osteoarthritis Spinal stenosis Suspected sleep apnea Witnessed by (rare episodes)- no formal sleep study Tremor hands ongoing x yrs, denies change or worsening Urinary incontinence Patient denies h/o seizures, heart attack, heart failure, blood clots/DVTs or blood transfusions. Exercise / Class Metabolic Activity III < 4 Walking/Shop/Light housework (shortness of breath with usual activities ongoing x many yrs-denies change or worsening; less than 8 steps in home) Past Family History Family History Other No family history of adverse response to anesthesia Past Surgical History Surgical History (Updated 07/01/23 @ 13:46 by Merlene Garcia PA-C) History of appendectomy History of arthroscopy of right knee History of back surgery L4-S1 decompression/fusion (07/15/21): Grade view 1, MAC#3, ETT 7.0 at [facility] L3-4 decompression, L3-S1 fusion (07/29/22): Grade view 1, MAC#3, ETT 7.5 at [facility] History of bronchoscopy History of bunionectomy right great toe History of cataract surgery left History of cholecystectomy History of colonoscopy History of esophagogastroduodenoscopy (EGD) History of hammertoe correction right History of repair of hiatal hernia History of total abdominal hysterectomy and bilateral salpingo-oophorectomy S/P correction of deviated nasal septum Past Anesthesia History No Hx of Anesthesia Complications and No Family Hx of Anesthesia Complications History of PONV No Hx of PONV and No Hx of Motion Sickness Social History Smoking Status: Current every day smoker (-advised) tobacco type: cigarettes Smoking cigarettes per day: 10 per day Do You Dip or Chew Tobacco: No Hx Alcohol Use: Yes Alcohol type: beer alcohol intake frequency: 3 or more drinks per day (6-8 beers daily; denies h/o withdrawal, DTs or seizures) Hx Substance Use: No substance use type: does not use Review of Systems Patient reports nasal congestion, rhinorrhea, coughing-productive of sputum- unsure of color, and ear fullness 06/22/23; denies pharyngitis, rash, fever, chills, loss of taste or smell, nausea or vomiting. She reports full resolution of symptoms several days ago. Patient denies chest pain. Physical Exam Vital Signs Vitals BP 141/83 P 85 TEMP 98.5 SP02 97% on RA RESP 18 Physical Patient resting comfortably in chair in no acute distress, alert and oriented, responding appropriately throughout visit Full cervical extension range of motion without pain TMD 3.5 finger breadths Mallampati Score 2 Dentition: edentulous, full upper or lower dentures Lungs: normal respiratory effort. Good air movement, clear throughout to auscultation, no adventitious breath sounds Cardiac: regular rate and rhythm, no murmurs noted Carotid arteries: negative bruit bilat Lab Results Anesthesia Preop Results Results Anesthesia Widget: WBC 6.27 K/ul (4.8-10.8) 07/01/23 Hgb 13.0 g/dl (12.0-16.0) 07/01/23 Hct 39.1 % (37.0-47.0) 07/01/23 Plt 235 K/uL (130-400) 07/01/23 Na 136 mmol/L (136-145) 07/01/23 K 3.5 mmol/L (3.5-5.1) 07/01/23 Cl 103 mmol/L (98-107) 07/01/23 CO2 25 mmol/L (21-32) 07/01/23 BUN 7 mg/dl (6-23) 07/01/23 Creat 0.80 mg/dl (0.6-1.2) 07/01/23 Glucose Level 72 mg/dl (70-99(Fasting)) 07/01/23 PT 11.0 Seconds (9.0-12.0) 07/01/23 PTT 30 Seconds (21-31) 07/01/23 INR 1.0 (0.9-1.1) 07/01/23 Blood Type A Negative 07/01/23 Antibody Screen NEGATIVE 07/01/23 Testing Electrocardiogram Date: 07/01/23 NSR, rate 83 bpm Chest X-Ray Date: 07/01/23 No active disease in the chest.
--- NOTE | 2023-07-22 07:45 | History & Physical Report ---
Date of Service July 22, 2023 Assessment & Plan (1) Osteoarthritis of right knee: We will proceed with a right total knee arthroplasty. Postoperatively she will be started on aspirin for DVT prophylaxis and kept overnight in the hospital for postop medical management. She plans to go to [facility] in [place] upon discharge. History of Present Illness Chief Complaint: Osteoarthritis of the right knee. Primary Care Provider: Erwin Burgos is a pleasant 62-year-old female who has been dealing with chronic increasing right knee pain. It has been really bad over the past few months. She has seen another provider and has had cortisone shots in the knee. The shots did not help much. She is declining rapidly. S x-rays and clinical examination been diagnostic for advanced osteoarthritis of the right knee. After failing conservative treatment, she has elected to proceed with a right total knee arthroplasty. Allergies Allergy/AdvReac Type Severity Reaction Status Date / Time nitrofurantoin Allergy Intermediate SOB Verified 06/24/23 08:42 sumatriptan [From Imitrex] AdvReac Intermediate neck pain Verified 06/24/23 08:42 Home Medications Medication Instructions Recorded Confirmed Type albuterol sulfate 90 mcg/actuation 2 puff inhalation QID PRN sob 05/15/21 06/24/23 History aerosol inhaler amitriptyline 10 mg tablet 10 mg PO HS 05/15/21 06/24/23 History cholecalciferol (vitamin D3) 25 25 mcg PO QAM 05/15/21 06/24/23 History mcg (1,000 unit) capsule (Vitamin D3) cyanocobalamin (vitamin B-12) 6,000 mcg PO QAM 05/15/21 06/24/23 History 2,000 mcg tablet,extended release (Vitamin B-12 ER) ipratropium 0.5 mg-albuterol 3 mg 3 ml inhalation Q4H PRN sob 05/15/21 06/24/23 History (2.5 mg base)/3 mL nebulization soln lisinopril 20 mg tablet 20 mg PO QAM 05/15/21 06/24/23 History loratadine 10 mg tablet 10 mg PO QAM 05/15/21 06/24/23 History lorazepam 0.5 mg tablet 0.5 mg PO Q8H PRN Anxiety 05/15/21 06/24/23 History meloxicam 15 mg tablet 15 mg PO QAM 05/15/21 06/24/23 History multivitamin with minerals 2 tab PO QAM 05/15/21 06/24/23 History (Hair,Skin and Nails tablet) pantoprazole 40 mg tablet,delayed 40 mg PO QAM 05/15/21 06/24/23 History release (Protonix) perphenazine 2 mg tablet 2 mg PO HS 05/15/21 06/24/23 History sennosides 8.6 mg-docusate sodium 1 tab-cap PO BID 05/15/21 06/24/23 History 50 mg tablet (Stool Softener-Laxative) sertraline 100 mg tablet 100 mg PO HS 05/15/21 06/24/23 History fluticasone 250 mcg-salmeterol 50 1 inh inhalation BID 07/10/22 06/24/23 History mcg/dose blistr powdr for inhalation (Advair Diskus) gabapentin 800 mg tablet 800 mg PO TID 07/10/22 06/24/23 History oxycodone 5 mg tablet 10 mg PO Q6H PRN pain, severe 07/10/22 06/24/23 History Past Med/Surg History Medical History Tremor hands ongoing x yrs, denies change or worsening Hx of hypoglycemia Monitors BSG at home Osteoarthritis DDD (degenerative disc disease) Spinal stenosis Urinary incontinence GERD (gastroesophageal reflux disease) Well controlled, stable Graves' disease in remission No meds- controlled off meds for several yrs-monitored by PCP per patient Depression Anxiety Fibromyalgia Stable Migraines Ischemic stroke Approximately 5 years ago, no deficits HLD (hyperlipidemia) HTN (hypertension) controlled, stable per pt Suspected sleep apnea Witnessed by (rare episodes)- no formal sleep study COPD (chronic obstructive pulmonary disease) stable per pt; reports daily 1-2 x rescue inhaler and nebulizer use Asthma stable per pt Surgical History History of bronchoscopy History of back surgery L4-S1 decompression/fusion (07/15/21): Grade view 1, MAC#3, ETT 7.0 at [facility] L3-4 decompression, L3-S1 fusion (07/29/22): Grade view 1, MAC#3, ETT 7.5 at [facility] History of hammertoe correction right History of bunionectomy right great toe S/P correction of deviated nasal septum History of arthroscopy of right knee History of cholecystectomy History of appendectomy History of repair of hiatal hernia History of cataract surgery left History of total abdominal hysterectomy and bilateral salpingo-oophorectomy History of esophagogastroduodenoscopy (EGD) History of colonoscopy Family History Other No family history of adverse response to anesthesia Social History Smoking Status: Current every day smoker (-advised) Tobacco Type: Cigarettes Cigarettes Per Day: 10 per day; Second Hand Exposure: Yes (childhood); Do You Dip or Chew Tobacco: No; Hx Alcohol Use: Yes Alcohol type: beer Hx Substance Use: No Preferred Language: Romanian Communication Ability: Effective 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 Physical Exam On physical examination the right knee, she does have a slight varus deformity. She has tenderness palpation of the distal medial femoral condyle and over the medial joint line.. Constitutional WD/WN, vitals as above Eyes PERRL, conjunctivae normal, anicteric sclerae ENMT external ear and nose normal, oropharynx normal Neck trachea midline, no thyromegaly Respiratory normal respiratory effort Cardiovascular RRR, no murmur, no edema Gastrointestinal (Abdomen) normal bowel sounds, soft, nontender, no hepatosplenomegaly Psychiatric A+Ox3, euthymic affect Results & Data Results & Data Laboratory Results . Diagnostic Findings X-rays of the right knee show advanced osteoarthritis with joint space narrowing, osteophyte formation, and [id number] articulation. PG Care Time/CCT Total # of Minutes Spent Total Time Spent with Patient: Total time spent is greater than 50% in coordination of care (as documented) at patient's floor/unit and/or counseling patient: Coding Level of Care Code None Diagnoses Osteoarthritis of right knee M17.11
[~2023-07-26 07:30] MED LIST changes: -ACETAMINOPHEN 500 MG TAB PO SCH; +BUPIVACAINE 0.5 % 5 MG/1 ML PF 10ML VIAL ONE; -CeleBREX 200 MG CAP PO SCH; -DexMEDEtomidine HCL IV 100 MCG/ML VIAL IV ONE; -GABAPENTIN 600 MG DOSE PO SCH; -LR 15ML/HR IV SCH; -REMIFENTANIL HCL 1 MG VIAL IV ONE; +ROPIVACAINE 0.5% 5 MG/ML 30 ML VIAL ONE; -ceFAZolin 2000MG 2,000 MG/15 ML SYR IV SCH
[2023-07-26] MEDS ORDERED: ONDANSETRON INJ 2 MG/ML 2 ML VIAL ONE (07:32)
[2023-07-26] MEDS ORDERED: PROPOFOL IV EMULSION 10 MG/ML 20 ML VIAL IV ONE (07:32)
[2023-07-26] MEDS ORDERED: LIDOCAINE 2% 2 ML VIAL/AMP(20MG/ML) INFIL ONE (07:32)
[2023-07-26] MEDS ORDERED: MIDAZOLAM HCL 1 MG/ML 2ML VIAL ONE (07:32)
--- NOTE | 2023-07-26 08:22 | History & Physical Bridge Note ---
Date of Service July 26, 2023 History & Physical Bridge Note I have examined the patient, reviewed the History & Physical and in the interval since the performance of the History & Physical I have noted the following changes of clinical significance: no changes noted
[2023-07-26] MEDS: LR 60ML/HR IV SCH (08:25)
[2023-07-26] MEDS: LR 500ML BOLUS, THEN 15ML/HR IV SCH (08:25)
[2023-07-26] MEDS: ACETAMINOPHEN 500 MG TAB PO SCH ×2 (08:25→13:13)
[2023-07-26] MEDS: dexAMETHasone**PF** 10 MG/ML VIAL IV SCH (08:25)
[2023-07-26] MEDS: FAMOTIDINE 20 MG TAB PO SCH (08:25)
[2023-07-26] MEDS: GABAPENTIN 600 MG DOSE PO SCH (08:25)
[2023-07-26] MEDS: TRANEXAMIC ACID 1,000 MG **IV Pre-op IV SCH (09:16)
[2023-07-26] MEDS: ceFAZolin 2000MG 2,000 MG/15 ML SYR IV SCH ×2 (09:29→17:24)
[2023-07-26] MEDS: ROPIV 0.5% 246mg, Ketorolac 30mg, EPINEPHrine 0.5mg in NSS INFIL SCH (10:04)
[2023-07-26] MEDS: ORTHO JOINT ANESTHETIC ONE (10:04)
[2023-07-26] MEDS ORDERED: DEXAMETHASONE SOD INJ 4 MG/ML VIAL IV PRN (10:17)
[2023-07-26] MEDS ORDERED: HYDROmorphone INJ 2 MG/ML SYR/VIAL IV PRN (10:17)
[2023-07-26] MEDS ORDERED: ePHEDrine sulfate 50 MG/ML AMP IV PRN (10:17)
[2023-07-26] MEDS ORDERED: PROMETHAZINE HCL 6.25 MG in SODIUM CHLORIDE 0.9% 50 ML IV PRN (10:17)
[2023-07-26] MEDS ORDERED: ATROPINE SULFATE 0.1 MG/ML 10ML SYR IV PRN (10:17)
[2023-07-26] MEDS ORDERED: fentaNYL citrate PF 100 MCG/2 ML VIAL IV PRN (10:17)
[2023-07-26] MEDS: TRANEXAMIC ACID 1,000 MG **IV Intra-op IV SCH (10:32)
--- NOTE | 2023-07-26 10:36 | Operative Report ---
PG Post Operative Report Pre & Post Diagnosis Operation Date: 07/26/23 09:10 Pre-Op Diagnosis: Degenerative Joint Disease Right Knee Post-Op Diagnosis: Degenerative Joint Disease Right Knee I identified the patient and participated in the time-out.: Yes Procedure Operation Date: 07/26/23 09:10 Actual Procedures p Right Total Knee Arthroplasty(Right) - Nash Fletcher DO Surgeon Nash Fletcher DO Cia Agent Nash Unger PA-C Estimated Blood Loss 30 Findings Consistent with Post-Op Diagnosis Specimens Right femoral and tibial bone Description of Procedure Implants used: I used a Mukul Persona total knee arthroplasty system with a size 6 narrow PS femur, D tibia, 31 oval patella, and a size 10 CPS polyethylene bearing. All components were cemented in place with Biomet cement. Loretta arrived [facility] for the above procedure. She was seen in the preoperative holding area and the operative extremity was identified and signed. She was given a preoperative antibiotic, TXA, a spinal anesthetic and an adductor nerve block. She was taken back to the operating room and laid on the table in supine position. She was given basic sedation. The operative knee was then prepped and draped in sterile fashion. A timeout was done, and the patient and the operative extremity was properly identified. A midline incision was made directly over the patella. Dissection was taken down to the extensor mechanism. A midvastus arthrotomy was used. The medial retinaculum was released and the fat pad was mostly excised. The knee was flexed and the ACL, PCL, and meniscus were removed. A drill was sent down the center of the femoral canal followed by an intramedullary lonnie. Off that lonnie a distal femoral cutting block was placed. 9 mm was resected off the distal femur at 5 of valgus. A posterior referencing AP sizing guide was then placed on the distal femur. The femur measured to be a size 6. 2 drill holes were placed in 3 of external rotation. A 4-in-1 cutting block was then impacted into place. Anterior, posterior, and chamfer cuts were then made. The proximal tibia was then exposed. An external tibial alignment guide was placed. A tibial cut guide was then anchored in place and the proximal tibia was then resected. The posterior aspect of the knee was then opened up and any additional meniscus fragments and osteophytes were removed. The tibia measured to be a size D. The tibial plate was then placed in the appropriate rotation and the tibia was drilled and punched. Trial components were then placed. I used a size 10 CPS polyethylene insert. The knee was brought through a full range of motion and felt to be stable. The peg holes for the femoral component were then drilled. The patella was then everted and 9 mm was resected off the posterior aspect of the patella. The patella measured to be a size 31 oval. 3 peg holes were then drilled. A trial patella was placed. The knee was once again brought through a full range of motion and felt to be stable. Trial components were then removed. The surrounding soft tissues were injected with 100 cc of an orthopedic pain control cocktail. All components were then cemented into place with Biomet cement. The final polyethylene insert was then snapped into place. Once cement was dry the tourniquet was deflated. Hemostasis was obtained. A dilute betadyne lavage was then done for 3 minutes. The joint was then irrigated with normal saline solution. The mid vastus arthrotomy was then closed with #1 Vicryl suture. The skin was closed with 2-0 Vicryl, 3-0V lock suture, and aman. A soft compressive dressing was placed. She was then transferred to a hospital bed and taken to the postanesthesia care unit in stable condition. She tolerated the procedure well. Nash Unger PA-C, was present for the entire procedure. He was critical for patient positioning, prepping, draping, retraction exposure, wound closure and application of sterile dressing. I attest to the content of the Intraoperative Record and any orders documented therein. Any exceptions are noted below.
--- NOTE | 2023-07-26 11:55 | XRay Report ---
XR knee RT 1 or 2V routine CLINICAL HISTORY: Surgical Post Op TECHNIQUE: 2 views of the right knee were obtained. Comparison: Comparison is made to knee radiograph 05/04/2023 FINDINGS: Patient is status post total knee arthroplasty with expected postsurgical changes including soft tiss ue swelling and subcutaneous emphysema. No periarticular lucency or hardware fracture is seen. IMPRESSION: Expected postoperative appearance status post placement of total knee arthroplasty. ACT 112: Negative or not required by law. Electronically signed by: Paresh Gant M.D. 07/26/2023 11:54 AM
[2023-07-26] MEDS ORDERED: METOCLOPRAMIDE HCL INJ 5 MG/ML 2 ML VIAL IV PRN (12:00)
[2023-07-26] MEDS ORDERED: bisacodyL 10 MG SUPP PR PRN (12:00)
[2023-07-26] MEDS ORDERED: MAGNESIUM HYDROXIDE SUSP 30 ML UDC PO PRN (12:00)
[2023-07-26] MEDS ORDERED: NALOXONE HCL 0.4 MG/1 ML VIAL/CARP IV PRN (12:00)
[2023-07-26] MEDS ORDERED: ALBUTEROL HFA 8 GM INHALER INH PRN (12:00)
[2023-07-26] MEDS ORDERED: ALBUT/IPRATROP 3MG/0.5MG NEB 3 ML VIAL INH PRN (12:00)
[2023-07-26] MEDS ORDERED: ONDANSETRON INJ 2 MG/ML 2 ML VIAL IV PRN (12:00)
--- NOTE | 2023-07-26 12:01 | Anesthesiology Progress Note ---
Date of Service July 26, 2023 Anesthesia Post Procedure Vital Signs Vital Signs: Temp Pulse Pulse Resp BP Pulse Ox O2 Del Method 07/26/23 11:40 36.3 C L 67 18 156/84 H 96 Room Air 07/26/23 11:30 66 16 163/82 H 97 Room Air 07/26/23 11:20 70 18 168/78 H 97 Room Air 07/26/23 11:10 76 16 160/85 H 100 Oxymask 07/26/23 11:00 74 12 159/85 H 100 Oxymask 07/26/23 10:52 36.5 C 76 16 127/76 100 Oxymask 07/26/23 08:05 36.5 C 74 18 161/93 H 100 Room Air O2 Flow Rate 07/26/23 11:40 07/26/23 11:30 07/26/23 11:20 07/26/23 11:10 4 07/26/23 11:00 4 07/26/23 10:52 6 07/26/23 08:05 Transfer of Care Handoff Completed per policy Notes Mental Status: alert / awake / arousable and participated in evaluation Nausea / Vomiting: adequately controlled Pain: adequately controlled Airway Patency, RR, SpO2: stable & adequate BP & HR: stable & adequate Hydration State: stable & adequate Neuraxial Anesthesia: was administered and sensory block is resolving Anesthetic Complications: no major complications apparent and Pt Satisfied with anesthetic care
[2023-07-26] MEDS: FLUTICASONE/VILANTEROL 100/25MCG 14 PUFFS/INHALER INH SCH (13:05)
[2023-07-26] MEDS: GABAPENTIN 800 MG TAB PO SCH (13:06)
[2023-07-26] MEDS: KETOROLAC 30 MG/ML VIAL IV SCH (13:06)
[2023-07-26] MEDS: SODIUM CHLORIDE 0.9% 1,000 ML IV SCH (13:06)
[2023-07-26] MEDS: oxyCODONE HCL IR 5 MG TAB (IMMEDIATE RELEASE) PO PRN (14:01)
[2023-07-26] MEDS: HYDROmorphone INJ 0.5 MG/0.5 ML SYR IV PRN (15:43)
[2023-07-26] MEDS: SENNA 8.6 MG TAB PO SCH (21:05)
[2023-07-26] MEDS: DOCUSATE SODIUM 100 MG CAP PO SCH (21:05)
[2023-07-26] MEDS: ASPIRIN 81 MG ECTAB PO SCH (21:05)
[2023-07-26] MEDS: PERPHENAZINE 2 MG TAB PO SCH (21:05)
[2023-07-26] MEDS: AMITRIPTYLINE HCL 10 MG TAB PO SCH (21:06)
[2023-07-26] MEDS: SERTRALINE HCL 100 MG TABLET PO SCH (21:06)
[2023-07-27] MEDS: MULTIVITAMIN TAB PO SCH (07:41)
[2023-07-27] MEDS: lisinopril 20 MG TAB PO SCH (07:41)
[2023-07-27] MEDS: dexAMETHasone 4 MG TAB PO SCH (07:41)
[2023-07-27] MEDS: LORATADINE 10 MG TAB PO SCH (08:18)
--- NOTE | 2023-07-27 10:26 | Orthopedic Progress Note ---
Date of Service July 27, 2023 Assessment & Plan (1) Status post right knee replacement: Overall, she is doing quite well today with good pain control to the right knee. She has participated well with physical therapy working on ambulation and range of motion exercises. She was started on aspirin for DVT prophylaxis. She can be discharged home later today pending physical therapy evaluation. She will follow-up with orthopedics in 2 weeks for postoperative management. Subjective . Loretta was seen and evaluated this morning resting comfortably in no apparent distress. She notes that her pain is well-controlled to the right knee. She has been up and ambulating with no significant issues. She has worked with physical therapy this morning working on ambulation and range of motion exercises with no significant issues. She denies any other concerns today. Review of Systems All systems reviewed & are unremarkable except as noted in HPI & below. Physical Exam . On physical examination of the right knee, dressings are clean, dry, intact. Her leg is out in full extension. She has active plantarflexion dorsiflexion of the right ankle. +2 DP and PT pulse. Less than 2-second capillary refill. Normal sensation. Neurovascular intact. Results & Data Results & Data Laboratory Results . Diagnostic Findings . Postoperative x-rays of the right knee show prosthesis to be in anatomical align ment with no signs of fracture complication or loosening. PG Care Time/CCT Total # of Minutes Spent Total Time Spent with Patient: Total time spent is greater than 50% in coordination of care (as documented) at patient's floor/unit and/or counseling patient: Coding Level of Care Code 16380 Post Operative Follow-Up Diagnoses Status post right knee replacement Z96.651
--- NOTE | 2023-07-27 10:28 | Discharge Summary ---
Date of Service July 27, 2023 Admission HPI (Per Admitting) Loretta is a pleasant 62-year-old female who has been dealing with chronic increasing right knee pain. It has been really bad over the past few months. She has seen another provider and has had cortisone shots in the knee. The shots did not help much. She is declining rapidly. S x-rays and clinical examination been diagnostic for advanced osteoarthritis of the right knee. After failing conservative treatment, she has elected to proceed with a right total knee arthroplasty. Admission Exam (Per Admitting) On physical examination the right knee, she does have a slight varus deformity. She has tenderness palpation of the distal medial femoral condyle and over the medial joint line.. Principal Diagnosis Same as "Discharge Diagnosis" noted below under Discharge Instructions. Discharge Exam . On physical examination of the right knee, dressings are clean, dry, intact. Her leg is out in full extension. She has active plantarflexion dorsiflexion of the right ankle. +2 DP and PT pulse. Less than 2-second capillary refill. Normal sensation. Neurovascular intact. Discharge Data Procedures Performed Operation Date: 07/26/23 09:10 Actual Procedures p Right Total Knee Arthroplasty(Right) - Nash Fletcher DO Ordered Studies 07/26/23 05:00 US - OR guided needle placemen Routine Hospital Course (1) Status post right knee replacement: On July 26, 2023 Loretta arrived at [facility] and underwent a right total knee arthroplasty performed by Dr. Fletcher with no complications. She had a spinal anesthetic. Postoperatively, she was started on aspirin for DVT prophylaxis and transferred to the general orthopedic floor in stable condition. Her hospital course was uneventful. On postoperative day #1, her vital signs were stable and her pain was well-controlled. She participated well with physical therapy working on ambulation and range of motion exercises. She was then discharged home in stable condition. She will follow-up with orthopedics in 2 weeks for postoperative management. PG Care Time/CCT Total # of Minutes Spent Total Time Spent with Patient: Total time spent is greater than 50% in coordination of care (as documented) at patient's floor/unit and/or counseling patient: Discharge Plan Discharge Items Patient Disposition: Home - Home Health Services Reason For Visit: Degenerative Joint Disease Right Knee Discharge Diagnosis: Same Activity: Per Instructions section Non-emergency contact: Surgeon Call non-emergency contact if: your temperature is above 101.5, your wound has increased redness, your wound has increased drainage and your wound pain has increased Follow-up/Referrals: Erwin Cerda D.O. [Primary Care Provider] - Diet: Regular Addtl Attending Provider Instructions: Activity and Therapy Recommendations: * If you are using [facility] then therapy will be provided at your home until they feel you have accomplished all of your goals. * If you are using [facility] then Physical Therapy will be provided until they feel you are ready to start Outpatient Physical Therapy. * If you are not using home therapy then Outpatient Physical Therapy should start about 3-5 days from your day of surgery. Therapy will last about 6-10 weeks * It is important not to put a pillow under your knee when you are relaxing or sleeping. It is just as important to make sure you are getting your knee perfectly straight as it is to regain your knee bend. * You were shown a series of exercises in the hospital. Do these exercises three times each day including the exercises you were shown in physical therapy. * Get up and walk several times each day. For the first four weeks, try not to stand or walk for more than one hour at a time. If you do stand or walk for more than one hour, you will not hurt anything, but your leg will likely swell. * As you feel comfortable, you may change from the walker or crutches to a cane and then to independent walking. Medications: * Narcotic- Continue as currently prescribed. * Cefadroxil -take the antibiotic twice a day for 10 days to help prevent infection. * Aspirin Most patients will be required to take Aspirin 81mg twice a day for 6 weeks after surgery. This is obtained senh-how-daetldt and a prescription is not necessary. * Other medications may be prescribed for specific circumstances. If you have any questions, please call the office at . * Resume previous home medications unless otherwise instructed TEDs/Elastic Stockings: The white elastic stockings help limit swelling and prevent blood clots from forming in your legs.~ The more you wear them, the more they work. Wear them for six weeks. Dressing Care: The dressing can be changed after physical therapy on postop day #1. Daily dry dressing changes for a few days, especially if the incision is still draining some. If the incision is not draining then you may leave the aman open to air. If there is a little bit of drainage or if the aman are getting stuck on your clothing then cover the incision with a dry dressing. The aman will be removed at your 2 week follow-up appointment. Showering: You may shower 5 days from the day of surgery as long as the incision is no longer draining. You may shower with the aman exposed. Let soapy water run over the aman and pat them dry. Do not scrub or soak the incision. Things To Watch For: * Drainage from the incision site that occurs more than one week after your surgery. * Increased redness at the incision site. * Fever above 102 degrees Fahrenheit. * Unusual chest pain or shortness of breath. * Call [facility] at with any of the above problems Follow-Up Visit: Follow-up with Dr. Fletcher's PA (Nash Unger) 2-3 weeks after your day of surgery. He will remove your aman and answer any questions. If you have any additional questions or concerns, Dr Fletcher is usually in the office at the same time and will be available An appointment was probably scheduled when you signed-up for surgery in the office. If you have any questions call Office Instructions: More detailed instructions as well as Frequently Asked Questions were provided in a folder by our office when you signed-up for surgery. Please review these instructions when you get home. If you have any further questions or concerns, please feel free to call the office at [phone] Pending Studies at Discharge: No Stand-Alone Forms: My [facility] [address], Smoking Cessation Medications and DC Order Prescriptions: New cefadroxil 500 mg capsule 500 mg PO BID 10 Days Qty: 20 0RF aspirin 81 mg Tablet,Delayed Release (Dr/Ec) 81 mg PO BID 42 Days Qty: 0 0RF Continued perphenazine 2 mg Tablet 2 mg PO HS ipratropium-albuterol 0.5 mg-3 mg(2.5 mg base)/3 mL Solution For Nebulization 3 ml INHALATION Q4H PRN (Reason: sob) lisinopril 20 mg Tablet 20 mg PO QAM sennosides-docusate sodium [Stool Softener-Laxative] 8.6-50 mg Tablet 1 tab-cap PO BID sertraline [Zoloft] 100 mg Tablet 100 mg PO HS lorazepam [Ativan] 0.5 mg Tablet 0.5 mg PO Q8H PRN (Reason: Anxiety) amitriptyline 10 mg Tablet 10 mg PO HS pantoprazole [Protonix] 40 mg Tablet,Delayed Release (Dr/Ec) 40 mg PO QAM cyanocobalamin (vitamin B-12) [Vitamin B-12] 2,000 mcg Tablet Extended Release 6,000 mcg PO QAM Hair,Skin and Nails Tablet 2 tab PO QAM albuterol sulfate 90 mcg/actuation Hfa Aerosol Inhaler 2 puff INHALATION QID PRN (Reason: sob) loratadine [Claritin] 10 mg Tablet 10 mg PO QAM cholecalciferol (vitamin D3) [Vitamin D3] 25 mcg (1,000 unit) Capsule 25 mcg PO QAM fluticasone propion-salmeterol [Advair Diskus] 250-50 mcg/dose Blister With Device 1 inh INHALATION BID gabapentin 800 mg Tablet 800 mg PO TID oxycodone 5 mg tablet 10 mg PO Q6H PRN (Reason: pain, severe) Discontinued meloxicam 15 mg Tablet 15 mg PO QAM Admission Data Admit Date/Time: 07/26/23 10:58 Attending Provider: Nash Fletcher Admit Provider: Nash Fletcher Primary Care Provider: Erwin Cerda Other Interventions: Discharge Summary Assessment (RN) Last Done: 07/27/23 09:43
== END 2023-07-27 10:50 | disposition home health service (06) ==
LOC: 3E 07:30 → ASU 07:30